=== PATIENT | male | born 1965 | race Caucasian/White ===

== ENCOUNTER 2018-07-10 16:29 | Emergency (ER) | payer MEDICARE, MEDICAID ==
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
[2018-07-10] MEDS: Iopamidol 755 Mg/ML 100 ML Bottle IV ONE (19:08)
[2018-07-10] MEDS: metroNIDAZOLE 500 MG Tab PO ONE (21:27)
== END 2018-07-10 22:01 | disposition home or self-care (01) ==
LOC: FB.ED 16:29
DX: K52.9 Noninfective gastroenteritis and colitis, unspecified (principal); K56.41 Fecal impaction; Z88.8 Allergy status to other drugs, medicaments and biological substances; Z79.899 Other long term (current) drug therapy; Z88.2 Allergy status to sulfonamides; Z91.010 Allergy to peanuts
CPT/HCPCS: 36415; 74177; 80053; 81001; 82150; 83605; 85025; 87040; 87070; 87077; 87186; 87205; 99283; A9270-GY; Q9967

== ENCOUNTER 2019-02-03 10:30 | Emergency (ER) | payer MEDICARE, MEDICAID ==
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
== END 2019-02-03 12:25 | disposition home or self-care (01) ==
LOC: FB.ED 10:30
DX: N39.0 Urinary tract infection, site not specified (principal); E87.6 Hypokalemia; Z88.5 Allergy status to narcotic agent; Z91.010 Allergy to peanuts; Z88.2 Allergy status to sulfonamides; Z79.899 Other long term (current) drug therapy; Z87.891 Personal history of nicotine dependence
CPT/HCPCS: 36415; 80048; 81001; 83605; 85025; 85610; 99283

== ENCOUNTER 2019-02-05 08:00 | Inpatient (IN) | payer MEDICARE, MEDICAID ==
[2019-02-05] MEDS ORDERED: Enoxaparin 40 MG/0.4 ML Syringe SUBCUT SCH (14:30)
[2019-02-05] MEDS: Sodium Chloride 0.9% 1,000 ML IV SCH (15:14)
[2019-02-05] MEDS: Levofloxacin/Dextrose 5%-Water 750 MG in Premix Bag 1 BAG IV SCH (15:15)
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
--- NOTE | 2019-02-05 17:16 | PCM.SN ---
- Free Text/Narrative Note: Patient uncomfortable for Lovenox since his hemoglobin is dropped. Did discuss risks of not being on Lovenox. He wants to recheck his hemoglobin the morning and then reconsider. I did do a rectal with the nurse present for occult blood. That was done and sent to lab.
[2019-02-05] MEDS: Potassium Chloride 20 MEQ Tab.ER PO SCH (18:16)
[2019-02-05] MEDS: Diazepam 5 MG Tab PO SCH ×2 (18:16→20:45)
[2019-02-05] MEDS: Albuterol/Ipratropium 3.0-0.5 MG/3 ML Neb Soln NEB PRN (18:47)
[2019-02-05] MEDS: Docusate Sodium 100 MG Cap PO SCH (20:44)
[2019-02-05] MEDS: MELATONIN 10 MG PO SCH (20:44)
[2019-02-06] MEDS: Sodium Chloride 0.9% 1,000 ML IV SCH ×3 (00:34→22:04)
[2019-02-06] MEDS: Acetaminophen 325 MG Tab PO PRN ×2 (02:21→16:54)
[2019-02-06] MEDS: Albuterol/Ipratropium 3.0-0.5 MG/3 ML Neb Soln NEB PRN (02:26)
[2019-02-06] MEDS ORDERED: Diazepam 5 MG Tab PO ONE (04:12)
--- NOTE | 2019-02-06 08:23 | PCM.PN ---
- General Info Date of Service: 02/06/19 Admission Dx/Problem (Free Text): Patient states he feels about the same. He hasn't had really any cough. Did have a fever last night. He has a little scratchy throat no nasal congestion. Breathing is about the same. He's not been up in his chair so he doesn't know how weak he is at this time - Patient Data Vitals - Most Recent: Last Vital Signs Temp 101.2 F H 02/06/19 04:00 Pulse 76 02/06/19 02:00 Resp 19 02/06/19 02:00 BP 148/87 H 02/06/19 02:00 Pulse Ox 88 L 02/06/19 02:00 Weight - Most Recent: 195 lb I&O - Last 24 Hours: Intake & Output 02/05/19 02/06/19 02/06/19 22:59 06:59 14:59 Intake Total 1458 1221 Output Total 2800 2300 Balance -1342 -1079 Lab Results Last 24 Hours: Laboratory Results - last 24 hr 02/05/19 02/06/19 02/06/19 Range/Units 14:45 06:20 06:20 WBC 6.8 (4.5-12.0) X10-3/uL RBC 3.33 L (4.30-5.75) x10(6)uL Hgb 10.6 L (13.5-17.8) g/dL Hct 31.8 (30.0-51.3) % MCV 95.7 (80-96) fL MCH 32.0 (27.7-33.6) pg MCHC 33.4 (32.2-35.4) g/dL RDW 14.8 (11.5-15.5) % Plt Count 354 (125-369) X10(3)uL MPV 7.8 (7.4-10.4) fL Neut % (Auto) 67.4 (46-82) % Lymph % (Auto) 16.3 (13-37) % [place] % (Auto) 12.2 H (4-12) % Eos % (Auto) 0 L (1.0-5.0) % Baso % (Auto) 4 H (0-2) % Neut # (Auto) 4.6 (1.6-8.3) # Lymph # (Auto) 1.1 (0.6-5.0) # [place] # (Auto) 0.8 (0.0-1.3) # Eos # (Auto) 0.0 (0.0-0.8) # Baso # (Auto) 0.3 H (0.0-0.2) # Sodium 140 (135-145) mmol/L Potassium 3.7 (3.5-5.3) mmol/L Chloride 98 L D (100-110) mmol/L Carbon Dioxide 37 H (21-32) mmol/L BUN 7 (7-18) mg/dL Creatinine 0.6 L (0.70-1.30) mg/dL Est Cr Clr Drug Dosing 167.44 mL/min Estimated GFR (MDRD) > 60 (>60) BUN/Creatinine Ratio 11.7 (9-20) Glucose 109 (80-116) mg/dL Calcium 7.9 L (8.6-10.2) mg/dL Total Bilirubin 0.7 (0.1-1.3) mg/dL AST 21 D (5-25) IU/L ALT 32 D (12-36) U/L Alkaline Phosphatase 96 (56-112) IU/L Troponin I < 0.017 L (<0.017-0.056) ng/mL Total Protein 6.7 (6.0-8.0) g/dL Albumin 2.1 L (3.5-5.2) g/dL Globulin 4.6 g/dL Albumin/Globulin Ratio 0.5 [place] Results Last 24 Hours: Microbiology 02/05/19 17:15 Stool Occult Blood (FELIPE) - Final Stool / Feces NEGATIVE OCCULT BLOOD Med Orders - Current: Current Medications Acetaminophen (Tylenol) 650 mg PO Q4H PRN PRN Reason: Fever Last Admin: 02/06/19 02:21 Dose: 650 mg Albuterol/Ipratropium (Duoneb 3.0-0.5 Mg/3 Ml) 3 ml NEB Q4H PRN PRN Reason: Dyspnea Last Admin: 02/06/19 02:26 Dose: 3 ml Ascorbic Acid (Vitamin C) 500 mg PO DAILY EDEN Bisacodyl (Dulcolax) 10 mg PO Q48H [place] Cetirizine HCl (Zyrtec) 10 mg PO DAILY PRN PRN Reason: Allergies Cranberry (Cranberry) 500 mg PO DAILY [facility] Diazepam (Valium.) 5 mg PO QID [facility] Last Admin: 02/05/19 20:45 Dose: 5 mg Docusate Sodium (Colace) 100 mg PO BID [facility] Last Admin: 02/05/19 20:44 Dose: 100 mg Levofloxacin/Dextrose 750 mg/ (Premix) 150 mls @ 100 mls/hr IV Q24H [facility] Last Admin: 02/05/19 15:15 Dose: 100 mls/hr Sodium Chloride (Normal Saline) 1,000 mls @ 125 mls/hr IV ASDIRECTED [facility] Last Admin: 02/06/19 00:34 Dose: 125 mls/hr (Azelastine/Fluticasone [Dymista Nasal [place]] 1 [place]) *Ptom 1 spray NASBOTH BID PRN PRN Reason: Allergies Cholecalciferol ( Vitamin D3) [Vitamin D3] 2,000 Unit * Ptom 0 unit PO DAILY [facility] Melatonin [Melatonin (] 10 Mg *Ptom) 0 mg PO BEDTIME [facility] Last Admin: 02/05/19 20:44 Dose: 10 mg Polysaccharide Iron Complex (Ferrex 150) 150 mg PO BID [facility] Potassium Chloride (Klor-Con M20) 20 meq PO DAILY [facility] Sodium Chloride (Saline Flush) 10 ml FLUSH ASDIRECTED PRN PRN Reason: Keep Vein Open Tolterodine Tartrate (Detrol La 24 Hr) 4 mg PO DAILY [facility] Discontinued Medications Diazepam (Valium.) 5 mg PO ONETIME ONE Stop: 02/06/19 04:13 Last Admin: 02/06/19 04:27 Dose: 5 mg Enoxaparin Sodium (Lovenox) 40 mg SUBCUT Q24H [facility] Last Admin: 02/05/19 14:40 Dose: Not Given Potassium Chloride (Klor-Con M20) 20 meq PO BIDMEALS [facility] Last Admin: 02/05/19 18:16 Dose: 20 meq - Exam Quality Assessment: Supplemental Oxygen General: Alert, Oriented, Cooperative Neck: Supple Lungs: Clear to Auscultation, Normal Respiratory Effort. No: Crackles, Rhonchi Cardiovascular: Regular Rate, Regular Rhythm, Murmurs Extremities: No Pedal Edema Skin: Warm, Dry, Intact Psy/Mental Status: Alert, Normal Affect, Normal Mood - Problem List & Annotations (1) Pneumonia SNOMED Code(s): 255524189 Code(s): J18.9 - PNEUMONIA, UNSPECIFIED ORGANISM Status: Acute Current Visit: Yes (2) Dehydration SNOMED Code(s): 76810021 Code(s): E86.0 - DEHYDRATION Status: Acute Current Visit: Yes (3) Hypokalemia SNOMED Code(s): 60781857 Code(s): E87.6 - HYPOKALEMIA Status: Acute Current Visit: Yes (4) Hyponatremia SNOMED Code(s): 98780137 Code(s): E87.1 - HYPO-OSMOLALITY AND HYPONATREMIA Status: Acute Current Visit: Yes (5) Palliative care status SNOMED Code(s): 217993195 Code(s): Z51.5 - ENCOUNTER FOR PALLIATIVE CARE Status: Acute Current Visit: Yes (6) Quadriplegic spinal paralysis SNOMED Code(s): 078482199 Code(s): G82.50 - QUADRIPLEGIA, UNSPECIFIED Status: Acute Current Visit: Yes (7) Anemia SNOMED Code(s): 022937193 Code(s): D64.9 - ANEMIA, UNSPECIFIED Status: Acute Current Visit: Yes (8) Hypoxia SNOMED Code(s): 809118320 Code(s): R09.02 - HYPOXEMIA Status: Acute Current Visit: Yes - Problem List Review Problem List Initiated/Reviewed/Updated: Yes - My Orders Last 24 Hours: My Active Orders 02/05/19 14:25 Patient Status [ADT] Routine Oxygen Therapy [RC] PRN Up to Chair [RC] ASDIRECTED Vital Signs [RC] Q4H Sodium Chloride 0.9% [Saline Flush] 10 ml FLUSH ASDIRECTED PRN Blood Culture x2 Reflex Set [OM.PC] Urgent Peripheral IV Insertion Adult [OM.PC] Routine Resuscitation Status Routine 02/05/19 14:26 Intake and Output [RC] 06,14,22 Sequential Compression Device [OM.PC] Per Unit Routine 02/05/19 14:28 CULTURE SPUTUM + SMEAR [RM] Routine 02/05/19 14:30 Levofloxacin/Dextrose 5%-Water [Levaquin in D5W 750 MG/150 ML] 750 mg Premix Bag 1 bag IV Q24H Sodium Chloride 0.9% [Normal Saline] 1,000 ml IV ASDIRECTED 02/05/19 14:45 CULTURE BLOOD [BC] Urgent 02/05/19 14:50 CULTURE BLOOD [BC] Urgent 02/05/19 16:16 Acetaminophen [Tylenol] 650 mg PO Q4H PRN 02/05/19 16:18 RT Aerosol Therapy [RC] ASDIRECTED Albuterol/Ipratropium [DuoNeb 3.0-0.5 MG/3 ML] 3 ml NEB Q4H PRN Azelastine/Fluticasone [Dymista Nasal [place]] 1 spray NASBOTH BID PRN Cetirizine [ZyrTEC] 10 mg PO DAILY PRN 02/05/19 17:00 diazePAM [Valium] 5 mg PO QID 02/05/19 20:06 Incentive Spirometry [RT Incentive Spirometry] [RC] Q1HWA 02/05/19 21:00 Docusate Sodium [Colace] 100 mg PO BID Melatonin [Melatonin] 0 mg PO BEDTIME 02/05/19 Dinner Regular Diet [DIET] 02/06/19 08:30 Enoxaparin [Lovenox] 40 mg SUBCUT Q24H 02/06/19 09:00 Ascorbic Acid [Vitamin C] 500 mg PO DAILY Bisacodyl [Dulcolax] 10 mg PO Q48H Cholecalciferol (Vitamin D3) [Vitamin D3] 0 unit PO DAILY Cranberry 500 mg PO DAILY Iron Polysaccharides Complex [Ferrex 150] 150 mg PO BID Potassium Chloride [Klor-Con M20] 20 meq PO DAILY Tolterodine [Detrol LA 24 Hr] 4 mg PO DAILY 02/07/19 05:11 CBC WITH AUTO DIFF [HEME] AM - Plan Plan:: 1. Continue current antibiotics. 2. Keep O2 greater than 90% 3. Will get him up in his chair today 4. Start iron 150 mg twice a day. 5. His sodium and potassium are corrected today. Decrease his potassium dose of 20 milk was to once a day. 6. Continue IV fluids as previously stated 1 25 mL an hour 7. His guaiac was negative and hemoglobin is about the same so he is agreeable to start Lovenox for VTE prophylaxis. So I reordered the Lovenox 40 mg subcutaneous once a day. 8. Reviewed his urine that he had on 02/01 which showed mixed nima. That was done clinic. 9. Had a PET scan recently that showed no cancer possible pneumonia 10. He has seen the guest services assistant who has reviewed his CT scan of his chest and PET scan and swallowing study. She recommends repeat CT in 3 months.
[2019-02-06] MEDS: Docusate Sodium 100 MG Cap PO SCH ×3 (09:01→20:19)
[2019-02-06] MEDS: Tolterodine 4 MG Cap.ER *PTOM PO SCH (09:01)
[2019-02-06] MEDS: BISACODYL 5 MG PO SCH ×2 (09:02→09:51)
[2019-02-06] MEDS: Potassium Chloride 20 MEQ Tab.ER PO SCH ×3 (09:03→18:38)
[2019-02-06] MEDS: Ascorbic Acid 500 MG Tab PO SCH (09:03)
[2019-02-06] MEDS: Diazepam 5 MG Tab PO SCH ×4 (09:14→20:20)
[2019-02-06] MEDS: Iron Polysaccharides Complex 150 MG Cap PO SCH ×2 (09:14→20:20)
[2019-02-06] MEDS: Enoxaparin 40 MG/0.4 ML Syringe SUBCUT SCH (09:18)
[2019-02-06] MEDS: Cranberry 500 MG Cap PO SCH (09:37)
[2019-02-06] MEDS: CHOLECALCIFEROL 2000 UNIT PO SCH (09:45)
[2019-02-06] MEDS: Sodium Chloride 0.9% 10 ML Syringe FLUSH PRN (12:23)
[2019-02-06] MEDS: AZELASTINE NASBOTH PRN (13:17)
[2019-02-06] MEDS: FLUTICASONE NASBOTH PRN (13:17)
[2019-02-06] MEDS: Levofloxacin/Dextrose 5%-Water 750 MG in Premix Bag 1 BAG IV SCH (15:15)
[2019-02-06] MEDS: MELATONIN 10 MG PO SCH (20:20)
[2019-02-07] MEDS: Acetaminophen 325 MG Tab PO PRN ×2 (01:12→19:11)
[2019-02-07] MEDS: Albuterol/Ipratropium 3.0-0.5 MG/3 ML Neb Soln NEB PRN (01:15)
[2019-02-07] MEDS: Sodium Chloride 0.9% 1,000 ML IV SCH (06:03)
[2019-02-07] MEDS ORDERED: Sodium Chloride 0.9% 10 ML Syringe FLUSH PRN (07:57)
[2019-02-07] MEDS ORDERED: Bisacodyl 10 MG Supp RECTAL PRN ×2 (07:59→09:38)
--- NOTE | 2019-02-07 08:05 | PCM.PN ---
- General Info Date of Service: 02/07/19 Admission Dx/Problem (Free Text): Patient states he has a dry nonproductive cough. He denies fevers, chills, shortness of breath. He is always constipated and is concerned about the iron and the potassium and like them stopped. He says iron causes constipation worsening or he has. Nurses report that he needed 2 L through the night with the CPAP keep his sats greater than 90%. Patient still feels weak. He also says his achiness is worse because is lying in bed. He counters this by sitting up in his chair is most the day. He uses some Tylenol that's helping - Patient Data Vitals - Most Recent: Last Vital Signs Temp 98.0 F 02/07/19 04:00 Pulse 79 02/07/19 04:00 Resp 18 02/07/19 04:00 BP 145/79 H 02/07/19 04:00 Pulse Ox 90 L 02/07/19 06:35 Weight - Most Recent: 195 lb I&O - Last 24 Hours: Intake & Output 02/06/19 02/07/19 02/07/19 22:59 06:59 14:59 Intake Total 1471 1371 Output Total 1300 2400 Balance 171 -1029 Lab Results Last 24 Hours: Laboratory Results - last 24 hr 02/07/19 02/07/19 Range/Units 06:15 06:15 WBC 6.6 (4.5-12.0) X10-3/uL RBC 3.22 L (4.30-5.75) x10(6)uL Hgb 10.3 L (13.5-17.8) g/dL Hct 31.1 (30.0-51.3) % MCV 96.6 H (80-96) fL MCH 31.9 (27.7-33.6) pg MCHC 33.0 (32.2-35.4) g/dL RDW 15.5 (11.5-15.5) % Plt Count 377 H (125-369) X10(3)uL MPV 7.7 (7.4-10.4) fL Neut % (Auto) 71.0 (46-82) % Lymph % (Auto) 17.5 (13-37) % [place] % (Auto) 9.8 (4-12) % Eos % (Auto) 1 (1.0-5.0) % Baso % (Auto) 1 (0-2) % Neut # (Auto) 4.7 (1.6-8.3) # Lymph # (Auto) 1.2 (0.6-5.0) # [place] # (Auto) 0.6 (0.0-1.3) # Eos # (Auto) 0.0 (0.0-0.8) # Baso # (Auto) 0.1 (0.0-0.2) # Sodium 142 (135-145) mmol/L Potassium 3.9 (3.5-5.3) mmol/L Chloride 101 (100-110) mmol/L Carbon Dioxide 39 H (21-32) mmol/L BUN 6 L (7-18) mg/dL Creatinine 0.5 L (0.70-1.30) mg/dL Est Cr Clr Drug Dosing 200.93 mL/min Estimated GFR (MDRD) > 60 (>60) BUN/Creatinine Ratio 12.0 (9-20) Glucose 110 (80-116) mg/dL Calcium 8.0 L (8.6-10.2) mg/dL Felipe Results Last 24 Hours: Microbiology 02/05/19 14:50 Aerobic Blood Culture - Preliminary Blood - Venous - Lab Draw NO GROWTH AFTER 1 DAY Anaerobic Blood Culture - Preliminary NO GROWTH AFTER 1 DAY 02/05/19 14:45 Aerobic Blood Culture - Preliminary Blood - Venous NO GROWTH AFTER 1 DAY Anaerobic Blood Culture - Preliminary NO GROWTH AFTER 1 DAY Med Orders - Current: Current Medications Acetaminophen (Tylenol) 650 mg PO Q4H PRN PRN Reason: Fever Last Admin: 02/07/19 01:12 Dose: 650 mg Albuterol/Ipratropium (Duoneb 3.0-0.5 Mg/3 Ml) 3 ml NEB Q4H PRN PRN Reason: Dyspnea Last Admin: 02/07/19 01:15 Dose: 3 ml Ascorbic Acid (Vitamin C) 500 mg PO DAILY [facility] Last Admin: 02/06/19 09:03 Dose: 500 mg Bisacodyl (Dulcolax) 10 mg PO Q48H [facility] Last Admin: 02/06/19 09:51 Dose: Not Given Bisacodyl (Dulcolax) 10 mg RECTAL DAILY PRN PRN Reason: Constipation Cetirizine HCl (Zyrtec) 10 mg PO DAILY PRN PRN Reason: Allergies Cranberry (Cranberry) 500 mg PO DAILY [facility] Last Admin: 02/06/19 09:37 Dose: Not Given Diazepam (Valium.) 5 mg PO QID [facility] Last Admin: 02/06/19 20:20 Dose: 5 mg Docusate Sodium (Colace) 100 mg PO BID [facility] Last Admin: 02/06/19 20:19 Dose: 100 mg Enoxaparin Sodium (Lovenox) 40 mg SUBCUT Q24H [facility] Last Admin: 02/06/19 09:18 Dose: 40 mg Fluticasone Propionate (Flonase) 1 gm NASBOTH BID [facility] Levofloxacin/Dextrose 750 mg/ (Premix) 150 mls @ 100 mls/hr IV Q24H [facility] Last Admin: 02/06/19 15:15 Dose: 100 mls/hr (Azelastine/Fluticasone [Dymista Nasal [place]] 1 [place]) *Ptom 1 spray NASBOTH BID PRN PRN Reason: Allergies Last Admin: 02/06/19 13:17 Dose: 1 spray Cholecalciferol ( Vitamin D3) [Vitamin D3] 2,000 Unit * Ptom 0 unit PO DAILY [facility] Last Admin: 02/06/19 09:45 Dose: 2,000 unit Melatonin [Melatonin (] 10 Mg *Ptom) 0 mg PO BEDTIME [facility] Last Admin: 02/06/19 20:20 Dose: 10 mg Sodium Chloride (Saline Flush) 10 ml FLUSH ASDIRECTED PRN PRN Reason: Keep Vein Open Last Admin: 02/06/19 12:23 Dose: 10 ml Sodium Chloride (Saline Flush) 10 ml FLUSH ASDIRECTED PRN PRN Reason: Keep Vein Open Tolterodine Tartrate (Detrol La 24 Hr) 4 mg PO DAILY [facility] Last Admin: 02/06/19 09:01 Dose: 4 mg Discontinued Medications Diazepam (Valium.) 5 mg PO ONETIME ONE Stop: 02/06/19 04:13 Last Admin: 02/06/19 04:27 Dose: 5 mg Enoxaparin Sodium (Lovenox) 40 mg SUBCUT Q24H [facility] Last Admin: 02/05/19 14:40 Dose: Not Given Sodium Chloride (Normal Saline) 1,000 mls @ 125 mls/hr IV ASDIRECTED [facility] Last Admin: 02/07/19 06:03 Dose: 125 mls/hr Polysaccharide Iron Complex (Ferrex 150) 150 mg PO BID [facility] Last Admin: 02/06/19 20:20 Dose: 150 mg Potassium Chloride (Klor-Con M20) 20 meq PO BIDMEALS [facility] Last Admin: 02/06/19 18:38 Dose: Not Given Potassium Chloride (Klor-Con M20) 20 meq PO DAILY [facility] Last Admin: 02/06/19 10:14 Dose: 20 meq - Exam General: Alert, Oriented Lungs: Clear to Auscultation, Normal Respiratory Effort. No: Crackles, Rales, Rhonchi, Rub Cardiovascular: Regular Rate, Regular Rhythm, No Murmurs GI/Abdominal Exam: Normal Bowel Sounds, Soft, Non-Tender, No Organomegaly - Problem List & Annotations (1) Pneumonia SNOMED Code(s): 190668212 Code(s): J18.9 - PNEUMONIA, UNSPECIFIED ORGANISM Status: Acute Current Visit: Yes (2) Dehydration SNOMED Code(s): 02747149 Code(s): E86.0 - DEHYDRATION Status: Acute Current Visit: Yes (3) Hypokalemia SNOMED Code(s): 49353803 Code(s): E87.6 - HYPOKALEMIA Status: Acute Current Visit: Yes (4) Hyponatremia SNOMED Code(s): 34906721 Code(s): E87.1 - HYPO-OSMOLALITY AND HYPONATREMIA Status: Acute Current Visit: Yes (5) Palliative care status SNOMED Code(s): 896710248 Code(s): Z51.5 - ENCOUNTER FOR PALLIATIVE CARE Status: Acute Current Visit: Yes (6) Quadriplegic spinal paralysis SNOMED Code(s): 993170812 Code(s): G82.50 - QUADRIPLEGIA, UNSPECIFIED Status: Acute Current Visit: Yes (7) Anemia SNOMED Code(s): 316012095 Code(s): D64.9 - ANEMIA, UNSPECIFIED Status: Acute Current Visit: Yes (8) Hypoxia SNOMED Code(s): 025977514 Code(s): R09.02 - HYPOXEMIA Status: Acute Current Visit: Yes - Problem List Review Problem List Initiated/Reviewed/Updated: Yes - My Orders Last 24 Hours: My Active Orders 02/06/19 08:30 Enoxaparin [Lovenox] 40 mg SUBCUT Q24H 02/06/19 09:00 Ascorbic Acid [Vitamin C] 500 mg PO DAILY Bisacodyl [Dulcolax] 10 mg PO Q48H Cholecalciferol (Vitamin D3) [Vitamin D3] 0 unit PO DAILY Cranberry 500 mg PO DAILY Tolterodine [Detrol LA 24 Hr] 4 mg PO DAILY 02/07/19 07:57 Sodium Chloride 0.9% [Saline Flush] 10 ml FLUSH ASDIRECTED PRN Saline Lock Insert [OM.PC] Routine 02/07/19 07:59 Bisacodyl [Dulcolax] 10 mg RECTAL DAILY PRN 02/07/19 08:00 Admission Status [Patient Status] [ADT] Routine 02/07/19 08:01 Consult to Occupational Therapy [OT Evaluation and Treatment] [CONS] Routine Consult to Physical Therapy [PT Evaluation and Treatment] [CONS] Routine 02/07/19 09:00 Fluticasone Propionate [Flonase] 1 gm NASBOTH BID - Plan Plan:: 1. DC IV fluids and saline lock IV. 2. DC iron and potassium per patient request. 3. Patient's requesting suppositories. He takes 2 Dulcolax suppositories daily when necessary when he needs to move his bowels. He also needs to be digitally submitted. He has a process that he knows how it works for him and his caregivers. 4. PT/OT evaluation 5. Up in chair most of the day because it helps him with his achiness and pain. 6. Flonase 2 sprays each nostril once a day. 7. Continue IV antibiotics
[2019-02-07] MEDS: CHOLECALCIFEROL 2000 UNIT PO SCH (09:07)
[2019-02-07] MEDS: Cranberry 500 MG Cap PO SCH (09:08)
[2019-02-07] MEDS: Docusate Sodium 100 MG Cap PO SCH ×2 (09:08→20:40)
[2019-02-07] MEDS: Tolterodine 4 MG Cap.ER *PTOM PO SCH (09:09)
[2019-02-07] MEDS: FLUTICASONE NASBOTH PRN (09:09)
[2019-02-07] MEDS: AZELASTINE NASBOTH PRN (09:09)
[2019-02-07] MEDS: Ascorbic Acid 500 MG Tab PO SCH (09:10)
[2019-02-07] MEDS: Diazepam 5 MG Tab PO SCH ×4 (09:17→22:56)
[2019-02-07] MEDS: Enoxaparin 40 MG/0.4 ML Syringe SUBCUT SCH ×2 (09:52→13:08)
[2019-02-07] MEDS ORDERED: BISACODYL 5 MG PO SCH (10:00)
[2019-02-07] MEDS: Fluticasone Propionate Nasal Spray 16 GM Bottle NASBOTH SCH ×2 (12:19→20:42)
[2019-02-07] MEDS: Levofloxacin/Dextrose 5%-Water 750 MG in Premix Bag 1 BAG IV SCH (14:48)
[2019-02-07] MEDS: Cetirizine 10 MG Tab PO PRN (19:16)
[2019-02-07] MEDS: MELATONIN 10 MG PO SCH (20:41)
[2019-02-08] MEDS: Acetaminophen 325 MG Tab PO PRN ×2 (05:55→21:57)
[2019-02-08] MEDS: Albuterol/Ipratropium 3.0-0.5 MG/3 ML Neb Soln NEB PRN (07:00)
--- NOTE | 2019-02-08 08:00 | PCM.PN ---
- General Info Date of Service: 02/08/19 Admission Dx/Problem (Free Text): Patient was doing well but then this morning ran a temperature over 101 and his oxygen dropped into the 90s. His oxygen had increased to 6 L to keep him above 90%. He says a little diaphoretic any feels feverish. Denies chills. He feels little more short of breath. He has some chest discomfort with coughing. - Patient Data Vitals - Most Recent: Last Vital Signs Temp 101.3 F H 02/08/19 05:40 Pulse 101 H 02/08/19 05:40 Resp 20 02/08/19 05:40 BP 132/77 02/08/19 05:40 Pulse Ox 87 L 02/08/19 07:30 Weight - Most Recent: 195 lb I&O - Last 24 Hours: Intake & Output 02/07/19 02/08/19 02/08/19 22:59 06:59 14:59 Intake Total 2700 Output Total 3500 Balance -800 Felipe Results Last 24 Hours: Microbiology 02/05/19 14:45 Aerobic Blood Culture - Preliminary Blood - Venous NO GROWTH AFTER 2 DAYS Anaerobic Blood Culture - Preliminary NO GROWTH AFTER 2 DAYS 02/05/19 14:50 Aerobic Blood Culture - Preliminary Blood - Venous - Lab Draw NO GROWTH AFTER 2 DAYS Anaerobic Blood Culture - Preliminary NO GROWTH AFTER 2 DAYS Med Orders - Current: Current Medications Acetaminophen (Tylenol) 650 mg PO Q4H PRN PRN Reason: Fever Last Admin: 02/08/19 05:55 Dose: 650 mg Albuterol/Ipratropium (Duoneb 3.0-0.5 Mg/3 Ml) 3 ml NEB Q4H PRN PRN Reason: Dyspnea Last Admin: 02/08/19 07:00 Dose: 3 ml Ascorbic Acid (Vitamin C) 500 mg PO DAILY [facility] Last Admin: 02/07/19 09:10 Dose: 500 mg Bisacodyl (Dulcolax) 10 - 20 mg RECTAL DAILY PRN PRN Reason: Constipation Bisacodyl (Dulcolax) 10 mg PO Q48H [facility] Cetirizine HCl (Zyrtec) 10 mg PO DAILY PRN PRN Reason: Allergies Last Admin: 02/07/19 19:16 Dose: 10 mg Cholecalciferol (Vitamin D3) 2,000 units PO DAILY [facility] Cranberry (Cranberry) 500 mg PO DAILY [facility] Last Admin: 02/07/19 09:08 Dose: Not Given Diazepam (Valium.) 5 mg PO QID [facility] Last Admin: 02/07/19 22:56 Dose: 5 mg Docusate Sodium (Colace) 100 mg PO BID [facility] Last Admin: 02/07/19 20:40 Dose: 100 mg Enoxaparin Sodium (Lovenox) 40 mg SUBCUT Q24H [facility] Last Admin: 02/07/19 13:08 Dose: 40 mg Levofloxacin/Dextrose 750 mg/ (Premix) 150 mls @ 100 mls/hr IV Q24H [facility] Last Admin: 02/07/19 14:48 Dose: 100 mls/hr Melatonin (Melatonin) 10 mg PO BEDTIME [facility] (Azelastine/Fluticasone [Dymista Nasal [place]] 1 [place]) *Ptom 1 spray NASBOTH BID PRN PRN Reason: Allergies Last Admin: 02/07/19 09:09 Dose: 1 spray Sodium Chloride (Saline Flush) 10 ml FLUSH ASDIRECTED PRN PRN Reason: Keep Vein Open Last Admin: 02/06/19 12:23 Dose: 10 ml Sodium Chloride (Saline Flush) 10 ml FLUSH ASDIRECTED PRN PRN Reason: Keep Vein Open Tolterodine Tartrate (Detrol La 24 Hr) 4 mg PO DAILY [facility] Discontinued Medications Bisacodyl (Dulcolax) 10 mg PO Q48H [facility] Last Admin: 02/06/19 09:51 Dose: Not Given Bisacodyl (Dulcolax) 20 mg RECTAL DAILY PRN PRN Reason: Constipation Bisacodyl (Dulcolax) 10 mg PO Q48H [facility] Last Admin: 02/07/19 09:54 Dose: 10 mg Diazepam (Valium.) 5 mg PO ONETIME ONE Stop: 02/06/19 04:13 Last Admin: 02/06/19 04:27 Dose: 5 mg Enoxaparin Sodium (Lovenox) 40 mg SUBCUT Q24H [facility] Last Admin: 02/05/19 14:40 Dose: Not Given Fluticasone Propionate (Flonase) 0 gm NASBOTH BID [facility] Last Admin: 02/07/19 20:42 Dose: Not Given Sodium Chloride (Normal Saline) 1,000 mls @ 125 mls/hr IV ASDIRECTED [facility] Last Admin: 02/07/19 06:03 Dose: 125 mls/hr Cholecalciferol ( Vitamin D3) [Vitamin D3] 2,000 Unit * Ptom 0 unit PO DAILY [facility] Last Admin: 02/07/19 09:07 Dose: 2,000 unit Melatonin [Melatonin (] 10 Mg *Ptom) 0 mg PO BEDTIME [facility] Last Admin: 02/07/19 20:41 Dose: 10 mg Polysaccharide Iron Complex (Ferrex 150) 150 mg PO BID [facility] Last Admin: 02/06/19 20:20 Dose: 150 mg Potassium Chloride (Klor-Con M20) 20 meq PO BIDMEALS [facility] Last Admin: 02/06/19 18:38 Dose: Not Given Potassium Chloride (Klor-Con M20) 20 meq PO DAILY [facility] Last Admin: 02/06/19 10:14 Dose: 20 meq Tolterodine Tartrate (Detrol La 24 Hr) 4 mg PO DAILY [facility] Last Admin: 02/07/19 09:09 Dose: 4 mg - Exam Quality Assessment: Supplemental Oxygen General: Alert, Oriented, Cooperative Neck: Supple Lungs: Clear to Auscultation, Normal Respiratory Effort, Decreased Breath Sounds Cardiovascular: Regular Rate, Regular Rhythm, Murmurs GI/Abdominal Exam: Normal Bowel Sounds, Soft, Non-Tender Extremities: No Pedal Edema - Problem List & Annotations (1) Pneumonia SNOMED Code(s): 080611073 Code(s): J18.9 - PNEUMONIA, UNSPECIFIED ORGANISM Status: Acute Current Visit: Yes (2) Dehydration SNOMED Code(s): 71752382 Code(s): E86.0 - DEHYDRATION Status: Acute Current Visit: Yes (3) Hypokalemia SNOMED Code(s): 88410295 Code(s): E87.6 - HYPOKALEMIA Status: Acute Current Visit: Yes (4) Hyponatremia SNOMED Code(s): 68636083 Code(s): E87.1 - HYPO-OSMOLALITY AND HYPONATREMIA Status: Acute Current Visit: Yes (5) Palliative care status SNOMED Code(s): 684234641 Code(s): Z51.5 - ENCOUNTER FOR PALLIATIVE CARE Status: Acute Current Visit: Yes (6) Quadriplegic spinal paralysis SNOMED Code(s): 527422768 Code(s): G82.50 - QUADRIPLEGIA, UNSPECIFIED Status: Acute Current Visit: Yes (7) Anemia SNOMED Code(s): 370436748 Code(s): D64.9 - ANEMIA, UNSPECIFIED Status: Acute Current Visit: Yes (8) Hypoxia SNOMED Code(s): 698298854 Code(s): R09.02 - HYPOXEMIA Status: Acute Current Visit: Yes - Problem List Review Problem List Initiated/Reviewed/Updated: Yes - My Orders Last 24 Hours: My Active Orders 02/07/19 07:57 Sodium Chloride 0.9% [Saline Flush] 10 ml FLUSH ASDIRECTED PRN Saline Lock Insert [OM.PC] Routine 02/07/19 08:00 Admission Status [Patient Status] [ADT] Routine 02/07/19 08:01 Consult to Occupational Therapy [OT Evaluation and Treatment] [CONS] Routine Consult to Physical Therapy [PT Evaluation and Treatment] [CONS] Routine 02/07/19 09:38 Bisacodyl [Dulcolax] 10 - 20 mg RECTAL DAILY PRN 02/08/19 07:53 ABG [BLOOD GAS ARTERIAL] [BG] Routine CBC WITH AUTO DIFF [HEME] Routine 02/08/19 07:54 CXR [Chest 1V Frontal] [CR] Routine 02/08/19 09:00 Cholecalciferol (Vitamin D3) [Vitamin D3] 2,000 units PO DAILY Tolterodine [Detrol LA 24 Hr] 4 mg PO DAILY 02/08/19 21:00 Melatonin 10 mg PO BEDTIME 02/09/19 10:00 Bisacodyl [Dulcolax] 10 mg PO Q48H - Plan Plan:: 1. Chest x-ray, ABGs and CBC. 2. See if we can get any of the nurses back blows to loosen up mucous plugs and coughing. We don't have respiratory therapy anymore. 3. Reevaluate him after I get my chest x-ray and labs.
[2019-02-08] MEDS ORDERED: Bisacodyl 10 MG Supp RECTAL PRN (10:03)
[2019-02-08] MEDS: Enoxaparin 40 MG/0.4 ML Syringe SUBCUT SCH (10:25)
[2019-02-08] MEDS: Piperacillin/Tazobactam 3.375 GM in Sodium Chloride 0.9% 50 ML IV SCH ×3 (10:26→21:30)
[2019-02-08] MEDS: Tolterodine 4 MG Cap.ER PO SCH (10:32)
[2019-02-08] MEDS: Docusate Sodium 100 MG Cap PO SCH ×2 (10:32→21:28)
[2019-02-08] MEDS: Cholecalciferol (Vitamin D3) 1,000 Unit Tab PO SCH (10:32)
[2019-02-08] MEDS: Ascorbic Acid 500 MG Tab PO SCH (10:32)
[2019-02-08] MEDS: Cranberry 500 MG Cap PO SCH (10:32)
[2019-02-08] MEDS: Diazepam 5 MG Tab PO SCH ×4 (10:40→21:28)
--- NOTE | 2019-02-08 10:47 | CR ---
INDICATION: Short of breath, pneumonia. CHEST: A portable AP upright view of the chest was obtained 02/08/19 and compared with 02/05/19 and revealed what appears to be a loculated pleural effusion on the right. There also appears to be infiltrate in the mid to lower lung field on the right. The heart is enlarged. Pulmonary vasculature is prominent in the upper lung flores, suggesting CHF. No definite interstitial lung edema is identified. No left-sided pleural effusion was seen. Dextroconvex scoliosis of the upper middle thoracic spine of moderate degree is noted. IMPRESSION: 1. Possible pneumonia and pleuritis on the right with loculated pleural effusion suggested. 2. CHF without definite lung edema at this time. Report was called to Dr. Adilson Villeda at 1005 hours on 02/08/19. [facility]
[2019-02-08] MEDS: Sodium Chloride 0.9% 10 ML Syringe FLUSH PRN ×5 (10:58→17:22)
[2019-02-08] MEDS: Vancomycin 750 MG, Vancomycin 500 MG in Sodium Chloride 0.9% 250 ML IV SCH ×2 (11:17→22:25)
[2019-02-08] MEDS ORDERED: Furosemide 40 MG/4 ML VIAL IVPUSH ONE (11:42)
[2019-02-08] MEDS: Cetirizine 10 MG Tab PO PRN (16:29)
[2019-02-09] MEDS: Sodium Chloride 0.9% 10 ML Syringe FLUSH PRN ×3 (00:14→09:35)
[2019-02-09] MEDS ORDERED: Sodium Chloride 0.9% 250 ML IV SCH (00:30)
[2019-02-09] MEDS: Piperacillin/Tazobactam 3.375 GM in Sodium Chloride 0.9% 50 ML IV SCH ×2 (03:49→09:36)
--- NOTE | 2019-02-09 08:07 | PCM.PN ---
<Ty Israel - Last Filed: 02/09/19 08:02> - General Info Date of Service: 02/09/19 Admission Dx/Problem (Free Text): Patient reports he is doing ok. still has SOB, and chest pain when he coughs. No BM yet. he is tolerating diet well. - Review of Systems General: Reports: Fever HEENT: Reports: No Symptoms Pulmonary: Reports: Shortness of Breath, Pleuritic Chest Pain, Cough Cardiovascular: Reports: Chest Pain, Edema Gastrointestinal: Reports: Abdominal Pain, Constipation Musculoskeletal: Reports: Other (paraplegia) Skin: Reports: No Symptoms Neurological: Reports: No Symptoms Psychiatric: Reports: No Symptoms - Patient Data Vitals - Most Recent: Last Vital Signs Temp 37.3 C 02/09/19 06:10 Pulse 92 02/09/19 06:10 Resp 16 02/09/19 06:10 BP 121/72 02/09/19 06:10 Pulse Ox 92 L 02/09/19 06:10 Weight - Most Recent: 195 lb I&O - Last 24 Hours: Intake & Output 02/08/19 02/09/19 02/09/19 22:59 06:59 14:59 Intake Total 2600 590 Output Total 2750 1925 Balance -150 -1335 Lab Results Last 24 Hours: Laboratory Results - last 24 hr 02/08/19 02/08/19 02/09/19 Range/Units 08:25 11:00 06:05 WBC 8.0 (4.5-12.0) X10-3/uL RBC 3.23 L (4.30-5.75) x10(6)uL Hgb 10.6 L (13.5-17.8) g/dL Hct 31.1 (30.0-51.3) % MCV 96.3 H (80-96) fL MCH 32.7 (27.7-33.6) pg MCHC 34.0 (32.2-35.4) g/dL RDW 15.2 (11.5-15.5) % Plt Count 398 H (125-369) X10(3)uL MPV 7.2 L (7.4-10.4) fL Neut % (Auto) 74.4 (46-82) % Lymph % (Auto) 15.3 (13-37) % [place] % (Auto) 8.4 (4-12) % Eos % (Auto) 0 L (1.0-5.0) % Baso % (Auto) 2 (0-2) % Neut # (Auto) 5.9 (1.6-8.3) # Lymph # (Auto) 1.2 (0.6-5.0) # [place] # (Auto) 0.7 (0.0-1.3) # Eos # (Auto) 0.0 (0.0-0.8) # Baso # (Auto) 0.1 (0.0-0.2) # Sodium 139 (135-145) mmol/L Potassium 4.0 (3.5-5.3) mmol/L Chloride 97 L (100-110) mmol/L Carbon Dioxide 47 H* (21-32) mmol/L BUN 5 L (7-18) mg/dL Creatinine 0.6 L (0.70-1.30) mg/dL Est Cr Clr Drug Dosing 167.44 mL/min Estimated GFR (MDRD) > 60 (>60) BUN/Creatinine Ratio 8.3 L (9-20) Glucose 103 (80-116) mg/dL Calcium 8.0 L (8.6-10.2) mg/dL Total Bilirubin 0.6 (0.1-1.3) mg/dL AST 36 H D (5-25) IU/L ALT 40 H D (12-36) U/L Alkaline Phosphatase 93 (56-112) IU/L NT-Pro-B Natriuret Pep 1024 H* (<=125) pg/mL Total Protein 6.8 (6.0-8.0) g/dL Albumin 1.9 L (3.5-5.2) g/dL Globulin 4.9 g/dL Albumin/Globulin Ratio 0.4 Felipe Results Last 24 Hours: Microbiology 02/05/19 14:50 Aerobic Blood Culture - Preliminary Blood - Venous - Lab Draw NO GROWTH AFTER 3 DAYS Anaerobic Blood Culture - Preliminary NO GROWTH AFTER 3 DAYS 02/05/19 14:45 Aerobic Blood Culture - Preliminary Blood - Venous NO GROWTH AFTER 3 DAYS Anaerobic Blood Culture - Preliminary NO GROWTH AFTER 3 DAYS Med Orders - Current: Current Medications Acetaminophen (Tylenol) 650 mg PO Q4H PRN PRN Reason: Fever Last Admin: 02/08/19 21:57 Dose: 650 mg Albuterol/Ipratropium (Duoneb 3.0-0.5 Mg/3 Ml) 3 ml NEB Q4H PRN PRN Reason: Dyspnea Last Admin: 02/08/19 07:00 Dose: 3 ml Ascorbic Acid (Vitamin C) 500 mg PO DAILY [facility] Last Admin: 02/08/19 10:32 Dose: 500 mg Bisacodyl (Dulcolax) 10 - 20 mg RECTAL DAILY PRN PRN Reason: Constipation Bisacodyl (Dulcolax) 10 mg PO Q48H [facility] Bisacodyl (Dulcolax) 10 mg RECTAL DAILY PRN PRN Reason: Constipation Last Admin: 02/08/19 10:41 Dose: 10 mg Cetirizine HCl (Zyrtec) 10 mg PO DAILY PRN PRN Reason: Allergies Last Admin: 02/08/19 16:29 Dose: 10 mg Cholecalciferol (Vitamin D3) 2,000 units PO DAILY [facility] Last Admin: 02/08/19 10:32 Dose: 2,000 units Cranberry (Cranberry) 500 mg PO DAILY [facility] Last Admin: 02/08/19 10:32 Dose: 500 mg Diazepam (Valium.) 5 mg PO QID [facility] Last Admin: 02/08/19 21:28 Dose: 5 mg Docusate Sodium (Colace) 100 mg PO BID [facility] Last Admin: 02/08/19 21:28 Dose: 100 mg Enoxaparin Sodium (Lovenox) 40 mg SUBCUT Q24H [facility] Last Admin: 02/08/19 10:25 Dose: 40 mg Piperacillin Sod/Tazobactam (Sod 3.375 gm/ Sodium Chloride) 50 mls @ 100 mls/ hr IV Q6H [facility] Last Admin: 02/09/19 03:49 Dose: 100 mls/hr Vancomycin HCl 750 mg/Vancomycin HCl 500 mg/ Sodium Chloride 250 mls @ 167 mls/ hr IV Q12H [facility] Last Admin: 02/08/19 22:25 Dose: 167 mls/hr Sodium Chloride (Normal Saline) 250 mls @ 0 mls/hr IV ASDIRECTED [facility] Last Admin: 02/09/19 03:49 Dose: 30 mls/hr Melatonin (Melatonin) 10 mg PO BEDTIME [facility] Last Admin: 02/08/19 23:26 Dose: Not Given (Azelastine/Fluticasone [Dymista Nasal [place]] 1 [place]) *Ptom 1 spray NASBOTH BID PRN PRN Reason: Allergies Last Admin: 02/07/19 09:09 Dose: 1 spray Sodium Chloride (Saline Flush) 10 ml FLUSH ASDIRECTED PRN PRN Reason: Keep Vein Open Last Admin: 02/09/19 00:14 Dose: 10 ml Sodium Chloride (Saline Flush) 10 ml FLUSH ASDIRECTED PRN PRN Reason: Keep Vein Open Tolterodine Tartrate (Detrol La 24 Hr) 4 mg PO DAILY [facility] Last Admin: 02/08/19 10:32 Dose: 4 mg Vancomycin HCl (Pharmacy To Dose - Vancomycin) 1 dose .XX ASDIRECTED [place] Discontinued Medications Bisacodyl (Dulcolax) 10 mg PO Q48H [facility] Last Admin: 02/06/19 09:51 Dose: Not Given Bisacodyl (Dulcolax) 20 mg RECTAL DAILY PRN PRN Reason: Constipation Bisacodyl (Dulcolax) 10 mg PO Q48H [facility] Last Admin: 02/07/19 09:54 Dose: 10 mg Diazepam (Valium.) 5 mg PO ONETIME ONE Stop: 02/06/19 04:13 Last Admin: 02/06/19 04:27 Dose: 5 mg Enoxaparin Sodium (Lovenox) 40 mg SUBCUT Q24H [facility] Last Admin: 02/05/19 14:40 Dose: Not Given Fluticasone Propionate (Flonase) 0 gm NASBOTH BID [facility] Last Admin: 02/07/19 20:42 Dose: Not Given Furosemide (Lasix) 40 mg IVPUSH NOW ONE Stop: 02/08/19 11:43 Last Admin: 02/08/19 13:53 Dose: 40 mg Levofloxacin/Dextrose 750 mg/ (Premix) 150 mls @ 100 mls/hr IV Q24H [facility] Last Admin: 02/07/19 14:48 Dose: 100 mls/hr Sodium Chloride (Normal Saline) 1,000 mls @ 125 mls/hr IV ASDIRECTED [facility] Last Admin: 02/07/19 06:03 Dose: 125 mls/hr Cholecalciferol ( Vitamin D3) [Vitamin D3] 2,000 Unit * Ptom 0 unit PO DAILY [facility] Last Admin: 02/07/19 09:07 Dose: 2,000 unit Melatonin [Melatonin (] 10 Mg *Ptom) 0 mg PO BEDTIME [facility] Last Admin: 02/07/19 20:41 Dose: 10 mg Polysaccharide Iron Complex (Ferrex 150) 150 mg PO BID [facility] Last Admin: 02/06/19 20:20 Dose: 150 mg Potassium Chloride (Klor-Con M20) 20 meq PO BIDMEALS [facility] Last Admin: 02/06/19 18:38 Dose: Not Given Potassium Chloride (Klor-Con M20) 20 meq PO DAILY [facility] Last Admin: 02/06/19 10:14 Dose: 20 meq Tolterodine Tartrate (Detrol La 24 Hr) 4 mg PO DAILY [facility] Last Admin: 02/07/19 09:09 Dose: 4 mg - Exam Quality Assessment: Supplemental Oxygen General: Alert, Oriented HEENT: Pupils Equal Neck: Supple Lungs: Decreased Breath Sounds Cardiovascular: Regular Rate, Regular Rhythm GI/Abdominal Exam: Distended Extremities: Pedal Edema Psy/Mental Status: Alert, Normal Affect - Problem List & Annotations (1) SOB (shortness of breath) SNOMED Code(s): 849946880 Code(s): R06.02 - SHORTNESS OF BREATH Status: Acute (2) Anemia SNOMED Code(s): 772391379 Code(s): D64.9 - ANEMIA, UNSPECIFIED Status: Acute (3) Hypoxia SNOMED Code(s): 952368489 Code(s): R09.02 - HYPOXEMIA Status: Acute (4) Palliative care status SNOMED Code(s): 445312979 Code(s): Z51.5 - ENCOUNTER FOR PALLIATIVE CARE Status: Acute (5) Pneumonia SNOMED Code(s): 995789903 Code(s): J18.9 - PNEUMONIA, UNSPECIFIED ORGANISM Status: Acute (6) Quadriplegic spinal paralysis SNOMED Code(s): 632500941 Code(s): G82.50 - QUADRIPLEGIA, UNSPECIFIED Status: Acute (7) Fecal impaction SNOMED Code(s): 30918413 Code(s): K56.41 - FECAL IMPACTION Status: Acute (8) UTI (urinary tract infection) SNOMED Code(s): 45467111 Code(s): N39.0 - URINARY TRACT INFECTION, SITE NOT SPECIFIED Status: Acute - Problem List Review Problem List Initiated/Reviewed/Updated: Yes - Plan Plan:: - Continue Zosyn and Vancomycin for PNA - Will get ECHO - Monitor vital sign - Continue respiratory therapy <Adilson Villeda - Last Filed: 02/10/19 15:16> - Patient Data Vitals - Most Recent: Last Vital Signs Temp 99.7 F 02/09/19 08:00 Pulse 99 02/09/19 08:00 Resp 16 02/09/19 08:00 BP 127/76 02/09/19 08:00 Pulse Ox 92 L 02/09/19 06:10 Felipe Results Last 24 Hours: Microbiology 02/05/19 14:50 Aerobic Blood Culture - Final Blood - Venous - Lab Draw NO GROWTH AFTER 5 DAYS Anaerobic Blood Culture - Final NO GROWTH AFTER 5 DAYS 02/05/19 14:45 Aerobic Blood Culture - Final Blood - Venous NO GROWTH AFTER 5 DAYS Anaerobic Blood Culture - Final NO GROWTH AFTER 5 DAYS Med Orders - Current: Current Medications Discontinued Medications Acetaminophen (Tylenol) 650 mg PO Q4H PRN PRN Reason: Fever Last Admin: 02/09/19 09:43 Dose: 650 mg Albuterol/Ipratropium (Duoneb 3.0-0.5 Mg/3 Ml) 3 ml NEB Q4H PRN PRN Reason: Dyspnea Last Admin: 02/08/19 07:00 Dose: 3 ml Ascorbic Acid (Vitamin C) 500 mg PO DAILY [facility] Last Admin: 02/09/19 08:50 Dose: 500 mg Bisacodyl (Dulcolax) 10 mg PO Q48H [facility] Last Admin: 02/06/19 09:51 Dose: Not Given Bisacodyl (Dulcolax) 20 mg RECTAL DAILY PRN PRN Reason: Constipation Bisacodyl (Dulcolax) 10 - 20 mg RECTAL DAILY PRN PRN Reason: Constipation Bisacodyl (Dulcolax) 10 mg PO Q48H [facility] Last Admin: 02/07/19 09:54 Dose: 10 mg Bisacodyl (Dulcolax) 10 mg PO Q48H [facility] Last Admin: 02/09/19 09:35 Dose: 10 mg Bisacodyl (Dulcolax) 10 mg RECTAL DAILY PRN PRN Reason: Constipation Last Admin: 02/08/19 10:41 Dose: 10 mg Cetirizine HCl (Zyrtec) 10 mg PO DAILY PRN PRN Reason: Allergies Last Admin: 02/08/19 16:29 Dose: 10 mg Cholecalciferol (Vitamin D3) 2,000 units PO DAILY [facility] Last Admin: 02/09/19 08:50 Dose: 2,000 units Cranberry (Cranberry) 500 mg PO DAILY [facility] Last Admin: 02/09/19 08:49 Dose: 500 mg Diazepam (Valium.) 5 mg PO QID [facility] Last Admin: 02/09/19 08:51 Dose: 5 mg Diazepam (Valium.) 5 mg PO ONETIME ONE Stop: 02/06/19 04:13 Last Admin: 02/06/19 04:27 Dose: 5 mg Docusate Sodium (Colace) 100 mg PO BID [facility] Last Admin: 02/09/19 08:49 Dose: 100 mg Enoxaparin Sodium (Lovenox) 40 mg SUBCUT Q24H [facility] Last Admin: 02/05/19 14:40 Dose: Not Given Enoxaparin Sodium (Lovenox) 40 mg SUBCUT Q24H [facility] Last Admin: 02/09/19 08:50 Dose: 40 mg Fluticasone Propionate (Flonase) 0 gm NASBOTH BID [facility] Last Admin: 02/07/19 20:42 Dose: Not Given Furosemide (Lasix) 40 mg IVPUSH NOW ONE Stop: 02/08/19 11:43 Last Admin: 02/08/19 13:53 Dose: 40 mg Furosemide (Lasix) 40 mg IVPUSH NOW ONE Stop: 02/09/19 08:45 Last Admin: 02/09/19 09:08 Dose: 40 mg Levofloxacin/Dextrose 750 mg/ (Premix) 150 mls @ 100 mls/hr IV Q24H [facility] Last Admin: 02/07/19 14:48 Dose: 100 mls/hr Sodium Chloride (Normal Saline) 1,000 mls @ 125 mls/hr IV ASDIRECTED [facility] Last Admin: 02/07/19 06:03 Dose: 125 mls/hr Piperacillin Sod/Tazobactam (Sod 3.375 gm/ Sodium Chloride) 50 mls @ 100 mls/ hr IV Q6H [facility] Last Admin: 02/09/19 09:36 Dose: 100 mls/hr Vancomycin HCl 750 mg/Vancomycin HCl 500 mg/ Sodium Chloride 250 mls @ 167 mls/ hr IV Q12H [facility] Last Admin: 02/08/19 22:25 Dose: 167 mls/hr Sodium Chloride (Normal Saline) 250 mls @ 0 mls/hr IV ASDIRECTED [facility] Last Admin: 02/09/19 03:49 Dose: 30 mls/hr Melatonin (Melatonin) 10 mg PO BEDTIME [facility] Last Admin: 02/08/19 23:26 Dose: Not Given (Azelastine/Fluticasone [Dymista Nasal [place]] 1 [place]) *Ptom 1 spray NASBOTH BID PRN PRN Reason: Allergies Last Admin: 02/07/19 09:09 Dose: 1 spray Cholecalciferol ( Vitamin D3) [Vitamin D3] 2,000 Unit * Ptom 0 unit PO DAILY [facility] Last Admin: 02/07/19 09:07 Dose: 2,000 unit Melatonin [Melatonin (] 10 Mg *Ptom) 0 mg PO BEDTIME [facility] Last Admin: 02/07/19 20:41 Dose: 10 mg Polysaccharide Iron Complex (Ferrex 150) 150 mg PO BID [facility] Last Admin: 02/06/19 20:20 Dose: 150 mg Potassium Chloride (Klor-Con M20) 20 meq PO BIDMEALS [facility] Last Admin: 02/06/19 18:38 Dose: Not Given Potassium Chloride (Klor-Con M20) 20 meq PO DAILY [facility] Last Admin: 02/06/19 10:14 Dose: 20 meq Sodium Chloride (Saline Flush) 10 ml FLUSH ASDIRECTED PRN PRN Reason: Keep Vein Open Last Admin: 02/09/19 09:35 Dose: 10 ml Sodium Chloride (Saline Flush) 10 ml FLUSH ASDIRECTED PRN PRN Reason: Keep Vein Open Tolterodine Tartrate (Detrol La 24 Hr) 4 mg PO DAILY [facility] Last Admin: 02/07/19 09:09 Dose: 4 mg Tolterodine Tartrate (Detrol La 24 Hr) 4 mg PO DAILY [facility] Last Admin: 02/09/19 08:50 Dose: 4 mg Vancomycin HCl (Pharmacy To Dose - Vancomycin) 1 dose .XX ASDIRECTED [facility] - Problem List & Annotations (1) Pneumonia SNOMED Code(s): 862340128 Code(s): J18.9 - PNEUMONIA, UNSPECIFIED ORGANISM Status: Acute (2) Dehydration SNOMED Code(s): 57429223 Code(s): E86.0 - DEHYDRATION Status: Acute (3) Hypokalemia SNOMED Code(s): 71337121 Code(s): E87.6 - HYPOKALEMIA Status: Acute (4) Hyponatremia SNOMED Code(s): 25459290 Code(s): E87.1 - HYPO-OSMOLALITY AND HYPONATREMIA Status: Acute (5) Palliative care status SNOMED Code(s): 056090130 Code(s): Z51.5 - ENCOUNTER FOR PALLIATIVE CARE Status: Acute (6) Quadriplegic spinal paralysis SNOMED Code(s): 584927249 Code(s): G82.50 - QUADRIPLEGIA, UNSPECIFIED Status: Acute (7) Anemia SNOMED Code(s): 996858138 Code(s): D64.9 - ANEMIA, UNSPECIFIED Status: Acute (8) Hypoxia SNOMED Code(s): 405038527 Code(s): R09.02 - HYPOXEMIA Status: Acute - Plan Plan:: Eyes as they have seen this patient with the resident and examine them.
[2019-02-09] MEDS ORDERED: Furosemide 40 MG/4 ML VIAL IVPUSH ONE (08:44)
[2019-02-09] MEDS: Cranberry 500 MG Cap PO SCH (08:49)
[2019-02-09] MEDS: Docusate Sodium 100 MG Cap PO SCH (08:49)
[2019-02-09] MEDS: Enoxaparin 40 MG/0.4 ML Syringe SUBCUT SCH (08:50)
[2019-02-09] MEDS: Cholecalciferol (Vitamin D3) 1,000 Unit Tab PO SCH (08:50)
[2019-02-09] MEDS: Ascorbic Acid 500 MG Tab PO SCH (08:50)
[2019-02-09] MEDS: Tolterodine 4 MG Cap.ER PO SCH (08:50)
[2019-02-09] MEDS: Diazepam 5 MG Tab PO SCH (08:51)
--- NOTE | 2019-02-09 09:00 | PCM.DCSUM1 ---
<JhonatanTy - Last Filed: 02/09/19 08:53> Discharge Summary - Hospital Course Free Text/Narrative:: This is 53 years old male who admitted to the hospital on 02/05 for right side pneumonia. Patient was started on Levaquin. he was doing well, till yesterday he spiked a fever of 102.7, and his O2 sat dropped to 80% requiring 6 L of Oxygen. chest Xray didn't show new changes, but concern about CHF. Patient was switch to Zoysn and Vancomycin on 02/08. Blood culture negative. Given No significant improvement noticed. with worsening of respiratory symptoms and new heart murmur, decision to transfer patient to [facility]. [facility]merer Helper hospitalitis Dr.Mohamed Owen accepted patient. Patient will transfer to [facility] for further management. Diagnosis: Stroke: No - Discharge Data Discharge Date: 02/09/19 Discharge Disposition: DC/[facility] to [facility] Condition: Good - Discharge Diagnosis/Problem(s) (1) SOB (shortness of breath) SNOMED Code(s): 709319723 ICD Code: R06.02 - SHORTNESS OF BREATH Status: Acute (2) Anemia SNOMED Code(s): 718535057 ICD Code: D64.9 - ANEMIA, UNSPECIFIED Status: Acute (3) Hypoxia SNOMED Code(s): 779842329 ICD Code: R09.02 - HYPOXEMIA Status: Acute (4) Palliative care status SNOMED Code(s): 462026106 ICD Code: Z51.5 - ENCOUNTER FOR PALLIATIVE CARE Status: Acute (5) Pneumonia SNOMED Code(s): 059590192 ICD Code: J18.9 - PNEUMONIA, UNSPECIFIED ORGANISM Status: Acute (6) Quadriplegic spinal paralysis SNOMED Code(s): 851494884 ICD Code: G82.50 - QUADRIPLEGIA, UNSPECIFIED Status: Acute (7) Fecal impaction SNOMED Code(s): 15184164 ICD Code: K56.41 - FECAL IMPACTION Status: Acute (8) UTI (urinary tract infection) SNOMED Code(s): 59657711 ICD Code: N39.0 - URINARY TRACT INFECTION, SITE NOT SPECIFIED Status: Acute - Patient Summary/Data Consults: Consultations 02/07/19 08:01 Consult to Occupational Therapy [OT Evaluation and Treatment] [CONS] Routine Please Evaluate and Treat. OT Reason for Consult: Strengthening This query below is only for informational purposes and is not editable. Admission Diagnosis/Problem: Pneumonia Consult to Physical Therapy [PT Evaluation and Treatment] [CONS] Routine Please Evaluate and Treat. PT Reason for Consult: Strengthening This query below is only for informational purposes and is not editable. Admission Diagnosis/Problem: Pneumonia - Discharge Plan Home Medications: Home Meds Diazepam [Valium] 5 mg PO QID 07/10/18 [History] Docusate Sodium [Colace] 100 mg PO BID 07/10/18 [History] Tolterodine [Detrol LA 24 Hr] 4 mg PO DAILY 07/10/18 [History] Nitrofurantoin Macrocrystal [Macrodantin] 100 mg PO BIDMEALS 02/03/19 [History] Ascorbate Calcium [Vitamin C] 500 mg PO DAILY 02/05/19 [History] Azelastine/Fluticasone [Dymista Nasal [place]] 1 spray NASBOTH BID PRN 02/05/19 [ History] Bisacodyl [Laxative] 10 mg PO Q48H 02/05/19 [History] Cetirizine [ZyrTEC] 10 mg PO DAILY PRN 02/05/19 [History] Cholecalciferol (Vitamin D3) [Vitamin D3] 2,000 unit PO DAILY 02/05/19 [History] Cranberry 500 mg PO DAILY 02/05/19 [History] Melatonin 10 mg PO BEDTIME 02/05/19 [History] Acetaminophen [Tylenol] 650 mg PO Q4H PRN tablet 02/09/19 [Rx] Albuterol/Ipratropium [DuoNeb 3.0-0.5 MG/3 ML] 3 ml NEB Q4H PRN neb 02/09/19 [ Rx] Bisacodyl [Dulcolax] 10 - 20 mg RECTAL DAILY PRN supp 02/09/19 [Rx] Bisacodyl [Dulcolax] 10 mg RECTAL DAILY PRN supp 02/09/19 [Rx] Enoxaparin [Lovenox] 40 mg SUBCUT Q24H syringe 02/09/19 [Rx] Pharmacy to Dose - Vancomycin 1 dose .XX ASDIRECTED each 02/09/19 [Rx] Piperacillin/Tazobactam [Zosyn] 3.375 gm IV Q6H vial 02/09/19 [Rx] Sodium Chloride 0.9% [Saline Flush] 10 ml FLUSH ASDIRECTED PRN syringe [Rx] Sodium Chloride 0.9% [Saline Flush] 10 ml FLUSH ASDIRECTED PRN syringe [Rx] Vancomycin 500 mg IV Q12H sdv 02/09/19 [Rx] Vancomycin 750 mg IV Q12H sdv 02/09/19 [Rx] Patient Handouts: Pleural Effusion, Heart Failure, [id number], Community- Acquired Pneumonia, Adult, [id number] - Discharge Summary/Plan Comment DC Time >30 min.: Yes - General Info Date of Service: 02/09/19 - Review of Systems General: Reports: Fever, Weakness, Fatigue, Chills HEENT: Reports: No Symptoms, Contact Lenses Pulmonary: Reports: Shortness of Breath, Pleuritic Chest Pain, Cough, Sputum Cardiovascular: Reports: Chest Pain, Dyspnea on Exertion, Edema, Lightheadedness Gastrointestinal: Reports: Abdominal Pain, Constipation Genitourinary: Reports: Frequency, Incontinence Musculoskeletal: Reports: Other (Quadriplagia ) Neurological: Reports: Headache Psychiatric: Reports: No Symptoms - Patient Data Vitals - Most Recent: Last Vital Signs Temp 37.3 C 02/09/19 06:10 Pulse 92 02/09/19 06:10 Resp 16 02/09/19 06:10 BP 121/72 02/09/19 06:10 Pulse Ox 92 L 02/09/19 06:10 Weight - Most Recent: 195 lb I&O - Last 24 hours: Intake & Output 02/08/19 02/09/19 02/09/19 22:59 06:59 14:59 Intake Total 2600 590 Output Total 2750 1925 Balance -150 -1335 Lab Results - Last 24 hrs: Laboratory Results - last 24 hr 02/08/19 02/09/19 Range/Units 11:00 06:05 Sodium 139 (135-145) mmol/L Potassium 4.0 (3.5-5.3) mmol/L Chloride 97 L (100-110) mmol/L Carbon Dioxide 47 H* (21-32) mmol/L BUN 5 L (7-18) mg/dL Creatinine 0.6 L (0.70-1.30) mg/dL Est Cr Clr Drug Dosing 167.44 mL/min Estimated GFR (MDRD) > 60 (>60) BUN/Creatinine Ratio 8.3 L (9-20) Glucose 103 (80-116) mg/dL Calcium 8.0 L (8.6-10.2) mg/dL Total Bilirubin 0.6 (0.1-1.3) mg/dL AST 36 H D (5-25) IU/L ALT 40 H D (12-36) U/L Alkaline Phosphatase 93 (56-112) IU/L NT-Pro-B Natriuret Pep 1024 H* (<=125) pg/mL Total Protein 6.8 (6.0-8.0) g/dL Albumin 1.9 L (3.5-5.2) g/dL Globulin 4.9 g/dL Albumin/Globulin Ratio 0.4 KRIS Results - Last 24 hrs: Microbiology 02/05/19 14:50 Aerobic Blood Culture - Preliminary Blood - Venous - Lab Draw NO GROWTH AFTER 3 DAYS Anaerobic Blood Culture - Preliminary NO GROWTH AFTER 3 DAYS 02/05/19 14:45 Aerobic Blood Culture - Preliminary Blood - Venous NO GROWTH AFTER 3 DAYS Anaerobic Blood Culture - Preliminary NO GROWTH AFTER 3 DAYS Med Orders - Current: Current Medications Acetaminophen (Tylenol) 650 mg PO Q4H PRN PRN Reason: Fever Last Admin: 02/08/19 21:57 Dose: 650 mg Albuterol/Ipratropium (Duoneb 3.0-0.5 Mg/3 Ml) 3 ml NEB Q4H PRN PRN Reason: Dyspnea Last Admin: 02/08/19 07:00 Dose: 3 ml Ascorbic Acid (Vitamin C) 500 mg PO DAILY EDEN Last Admin: 02/08/19 10:32 Dose: 500 mg Bisacodyl (Dulcolax) 10 - 20 mg RECTAL DAILY PRN PRN Reason: Constipation Bisacodyl (Dulcolax) 10 mg PO Q48H [facility] Bisacodyl (Dulcolax) 10 mg RECTAL DAILY PRN PRN Reason: Constipation Last Admin: 02/08/19 10:41 Dose: 10 mg Cetirizine HCl (Zyrtec) 10 mg PO DAILY PRN PRN Reason: Allergies Last Admin: 02/08/19 16:29 Dose: 10 mg Cholecalciferol (Vitamin D3) 2,000 units PO DAILY [facility] Last Admin: 02/08/19 10:32 Dose: 2,000 units Cranberry (Cranberry) 500 mg PO DAILY [facility] Last Admin: 02/08/19 10:32 Dose: 500 mg Diazepam (Valium.) 5 mg PO QID [facility] Last Admin: 02/08/19 21:28 Dose: 5 mg Docusate Sodium (Colace) 100 mg PO BID [facility] Last Admin: 02/08/19 21:28 Dose: 100 mg Enoxaparin Sodium (Lovenox) 40 mg SUBCUT Q24H [facility] Last Admin: 02/08/19 10:25 Dose: 40 mg Piperacillin Sod/Tazobactam (Sod 3.375 gm/ Sodium Chloride) 50 mls @ 100 mls/ hr IV Q6H [facility] Last Admin: 02/09/19 03:49 Dose: 100 mls/hr Vancomycin HCl 750 mg/Vancomycin HCl 500 mg/ Sodium Chloride 250 mls @ 167 mls/ hr IV Q12H [facility] Last Admin: 02/08/19 22:25 Dose: 167 mls/hr Sodium Chloride (Normal Saline) 250 mls @ 0 mls/hr IV ASDIRECTED [facility] Last Admin: 02/09/19 03:49 Dose: 30 mls/hr Melatonin (Melatonin) 10 mg PO BEDTIME [facility] Last Admin: 02/08/19 23:26 Dose: Not Given (Azelastine/Fluticasone [Dymista Nasal [place]] 1 [place]) *Ptom 1 spray NASBOTH BID PRN PRN Reason: Allergies Last Admin: 02/07/19 09:09 Dose: 1 spray Sodium Chloride (Saline Flush) 10 ml FLUSH ASDIRECTED PRN PRN Reason: Keep Vein Open Last Admin: 02/09/19 00:14 Dose: 10 ml Sodium Chloride (Saline Flush) 10 ml FLUSH ASDIRECTED PRN PRN Reason: Keep Vein Open Tolterodine Tartrate (Detrol La 24 Hr) 4 mg PO DAILY [facility] Last Admin: 02/08/19 10:32 Dose: 4 mg Vancomycin HCl (Pharmacy To Dose - Vancomycin) 1 dose .XX ASDIRECTED [facility] Discontinued Medications Bisacodyl (Dulcolax) 10 mg PO Q48H [facility] [place] Last Admin: 02/06/19 09:51 Dose: Not Given Bisacodyl (Dulcolax) 20 mg RECTAL DAILY PRN PRN Reason: Constipation Bisacodyl (Dulcolax) 10 mg PO Q48H [facility] Last Admin: 02/07/19 09:54 Dose: 10 mg Diazepam (Valium.) 5 mg PO ONETIME ONE Stop: 02/06/19 04:13 Last Admin: 02/06/19 04:27 Dose: 5 mg Enoxaparin Sodium (Lovenox) 40 mg SUBCUT Q24H [facility] Last Admin: 02/05/19 14:40 Dose: Not Given Fluticasone Propionate (Flonase) 0 gm NASBOTH BID [facility] Last Admin: 02/07/19 20:42 Dose: Not Given Furosemide (Lasix) 40 mg IVPUSH NOW ONE Stop: 02/08/19 11:43 Last Admin: 02/08/19 13:53 Dose: 40 mg Furosemide (Lasix) 40 mg IVPUSH NOW ONE Stop: 02/09/19 08:45 Levofloxacin/Dextrose 750 mg/ (Premix) 150 mls @ 100 mls/hr IV Q24H [facility] Last Admin: 02/07/19 14:48 Dose: 100 mls/hr Sodium Chloride (Normal Saline) 1,000 mls @ 125 mls/hr IV ASDIRECTED [facility] Last Admin: 02/07/19 06:03 Dose: 125 mls/hr Cholecalciferol ( Vitamin D3) [Vitamin D3] 2,000 Unit * Ptom 0 unit PO DAILY [facility] Last Admin: 02/07/19 09:07 Dose: 2,000 unit Melatonin [Melatonin (] 10 Mg *Ptom) 0 mg PO BEDTIME [facility] Last Admin: 02/07/19 20:41 Dose: 10 mg Polysaccharide Iron Complex (Ferrex 150) 150 mg PO BID [facility] Last Admin: 02/06/19 20:20 Dose: 150 mg Potassium Chloride (Klor-Con M20) 20 meq PO BIDMEALS [facility] Last Admin: 02/06/19 18:38 Dose: Not Given Potassium Chloride (Klor-Con M20) 20 meq PO DAILY [facility] Last Admin: 02/06/19 10:14 Dose: 20 meq Tolterodine Tartrate (Detrol La 24 Hr) 4 mg PO DAILY [facility] Last Admin: 02/07/19 09:09 Dose: 4 mg - Exam General: Reports: Alert, Oriented HEENT: Reports: Pupils Equal Neck: Reports: Supple Lungs: Reports: Decreased Breath Sounds Cardiovascular: Reports: Murmurs GI/Abdominal Exam: Distended Back Exam: Reports: Decreased Range of Motion Extremities: Pedal Edema Psy/Mental Status: Reports: Alert, Normal Affect <Adilson Villeda - Last Filed: 02/10/19 15:17> Discharge Summary - Discharge Diagnosis/Problem(s) (1) Pneumonia SNOMED Code(s): 471890512 ICD Code: J18.9 - PNEUMONIA, UNSPECIFIED ORGANISM Status: Acute (2) Dehydration SNOMED Code(s): 04534597 ICD Code: E86.0 - DEHYDRATION Status: Acute (3) Hypokalemia SNOMED Code(s): 47415024 ICD Code: E87.6 - HYPOKALEMIA Status: Acute (4) Hyponatremia SNOMED Code(s): 39932472 ICD Code: E87.1 - HYPO-OSMOLALITY AND HYPONATREMIA Status: Acute (5) Palliative care status SNOMED Code(s): 928948080 ICD Code: Z51.5 - ENCOUNTER FOR PALLIATIVE CARE Status: Acute (6) Quadriplegic spinal paralysis SNOMED Code(s): 599095711 ICD Code: G82.50 - QUADRIPLEGIA, UNSPECIFIED Status: Acute (7) Anemia SNOMED Code(s): 861193876 ICD Code: D64.9 - ANEMIA, UNSPECIFIED Status: Acute (8) Hypoxia SNOMED Code(s): 571551679 ICD Code: R09.02 - HYPOXEMIA Status: Acute - Patient Summary/Data Consults: Consultations 02/07/19 08:01 Consult to Occupational Therapy [OT Evaluation and Treatment] [CONS] Routine Please Evaluate and Treat. OT Reason for Consult: Strengthening This query below is only for informational purposes and is not editable. Admission Diagnosis/Problem: Pneumonia Consult to Physical Therapy [PT Evaluation and Treatment] [CONS] Routine Please Evaluate and Treat. PT Reason for Consult: Strengthening This query below is only for informational purposes and is not editable. Admission Diagnosis/Problem: Pneumonia - Discharge Summary/Plan Comment Discharge Summary/Plan Comment: I attest I seen this patient examined him with the resident. - Patient Data Vitals - Most Recent: Last Vital Signs Temp 99.7 F 02/09/19 08:00 Pulse 99 02/09/19 08:00 Resp 16 02/09/19 08:00 BP 127/76 02/09/19 08:00 Pulse Ox 92 L 02/09/19 06:10 KRIS Results - Last 24 hrs: Microbiology 02/05/19 14:50 Aerobic Blood Culture - Final Blood - Venous - Lab Draw NO GROWTH AFTER 5 DAYS Anaerobic Blood Culture - Final NO GROWTH AFTER 5 DAYS 02/05/19 14:45 Aerobic Blood Culture - Final Blood - Venous NO GROWTH AFTER 5 DAYS Anaerobic Blood Culture - Final NO GROWTH AFTER 5 DAYS Med Orders - Current: Current Medications Discontinued Medications Acetaminophen (Tylenol) 650 mg PO Q4H PRN PRN Reason: Fever Last Admin: 02/09/19 09:43 Dose: 650 mg Albuterol/Ipratropium (Duoneb 3.0-0.5 Mg/3 Ml) 3 ml NEB Q4H PRN PRN Reason: Dyspnea Last Admin: 02/08/19 07:00 Dose: 3 ml Ascorbic Acid (Vitamin C) 500 mg PO DAILY [facility] Last Admin: 02/09/19 08:50 Dose: 500 mg Bisacodyl (Dulcolax) 10 mg PO Q48H [facility] Last Admin: 02/06/19 09:51 Dose: Not Given Bisacodyl (Dulcolax) 20 mg RECTAL DAILY PRN PRN Reason: Constipation Bisacodyl (Dulcolax) 10 - 20 mg RECTAL DAILY PRN PRN Reason: Constipation Bisacodyl (Dulcolax) 10 mg PO Q48H [facility] Last Admin: 02/07/19 09:54 Dose: 10 mg Bisacodyl (Dulcolax) 10 mg PO Q48H [facility] Last Admin: 02/09/19 09:35 Dose: 10 mg Bisacodyl (Dulcolax) 10 mg RECTAL DAILY PRN PRN Reason: Constipation Last Admin: 02/08/19 10:41 Dose: 10 mg Cetirizine HCl (Zyrtec) 10 mg PO DAILY PRN PRN Reason: Allergies Last Admin: 02/08/19 16:29 Dose: 10 mg Cholecalciferol (Vitamin D3) 2,000 units PO DAILY [facility] Last Admin: 02/09/19 08:50 Dose: 2,000 units Cranberry (Cranberry) 500 mg PO DAILY [facility] Last Admin: 02/09/19 08:49 Dose: 500 mg Diazepam (Valium.) 5 mg PO QID [facility] Last Admin: 02/09/19 08:51 Dose: 5 mg Diazepam (Valium.) 5 mg PO ONETIME ONE Stop: 02/06/19 04:13 Last Admin: 02/06/19 04:27 Dose: 5 mg Docusate Sodium (Colace) 100 mg PO BID [facility] Last Admin: 02/09/19 08:49 Dose: 100 mg Enoxaparin Sodium (Lovenox) 40 mg SUBCUT Q24H [facility] Last Admin: 02/05/19 14:40 Dose: Not Given Enoxaparin Sodium (Lovenox) 40 mg SUBCUT Q24H [facility] Last Admin: 02/09/19 08:50 Dose: 40 mg Fluticasone Propionate (Flonase) 0 gm NASBOTH BID [facility] Last Admin: 02/07/19 20:42 Dose: Not Given Furosemide (Lasix) 40 mg IVPUSH NOW ONE Stop: 02/08/19 11:43 Last Admin: 02/08/19 13:53 Dose: 40 mg Furosemide (Lasix) 40 mg IVPUSH NOW ONE Stop: 02/09/19 08:45 Last Admin: 02/09/19 09:08 Dose: 40 mg Levofloxacin/Dextrose 750 mg/ (Premix) 150 mls @ 100 mls/hr IV Q24H [facility] [place] Last Admin: 02/07/19 14:48 Dose: 100 mls/hr Sodium Chloride (Normal Saline) 1,000 mls @ 125 mls/hr IV ASDIRECTED [facility] Last Admin: 02/07/19 06:03 Dose: 125 mls/hr Piperacillin Sod/Tazobactam (Sod 3.375 gm/ Sodium Chloride) 50 mls @ 100 mls/ hr IV Q6H [facility] [place] Last Admin: 02/09/19 09:36 Dose: 100 mls/hr Vancomycin HCl 750 mg/Vancomycin HCl 500 mg/ Sodium Chloride 250 mls @ 167 mls/ hr IV Q12H [facility] [place] Last Admin: 02/08/19 22:25 Dose: 167 mls/hr Sodium Chloride (Normal Saline) 250 mls @ 0 mls/hr IV ASDIRECTED [facility] Last Admin: 02/09/19 03:49 Dose: 30 mls/hr Melatonin (Melatonin) 10 mg PO BEDTIME [facility] Last Admin: 02/08/19 23:26 Dose: Not Given (Azelastine/Fluticasone [Dymista Nasal [place]] 1 [place]) *Ptom 1 spray NASBOTH BID PRN PRN Reason: Allergies Last Admin: 02/07/19 09:09 Dose: 1 spray Cholecalciferol ( Vitamin D3) [Vitamin D3] 2,000 Unit * Ptom 0 unit PO DAILY [facility] Last Admin: 02/07/19 09:07 Dose: 2,000 unit Melatonin [Melatonin (] 10 Mg *Ptom) 0 mg PO BEDTIME [facility] Last Admin: 02/07/19 20:41 Dose: 10 mg Polysaccharide Iron Complex (Ferrex 150) 150 mg PO BID [facility] Last Admin: 02/06/19 20:20 Dose: 150 mg Potassium Chloride (Klor-Con M20) 20 meq PO BIDMEALS [facility] Last Admin: 02/06/19 18:38 Dose: Not Given Potassium Chloride (Klor-Con M20) 20 meq PO DAILY [facility] Last Admin: 02/06/19 10:14 Dose: 20 meq Sodium Chloride (Saline Flush) 10 ml FLUSH ASDIRECTED PRN PRN Reason: Keep Vein Open Last Admin: 02/09/19 09:35 Dose: 10 ml Sodium Chloride (Saline Flush) 10 ml FLUSH ASDIRECTED PRN PRN Reason: Keep Vein Open Tolterodine Tartrate (Detrol La 24 Hr) 4 mg PO DAILY [facility] [place] Last Admin: 02/07/19 09:09 Dose: 4 mg Tolterodine Tartrate (Detrol La 24 Hr) 4 mg PO DAILY [facility] Last Admin: 02/09/19 08:50 Dose: 4 mg Vancomycin HCl (Pharmacy To Dose - Vancomycin) 1 dose .XX ASDIRECTED [facility]
[2019-02-09] MEDS: Acetaminophen 325 MG Tab PO PRN (09:43)
[2019-02-09] MEDS ORDERED: BISACODYL 5 MG PO SCH (10:00)
== END 2019-02-09 09:55 | DRG 193 ==
LOC: FB.MS 08:00 → OBSVTOIN 02-07 08:00
PROVIDERS: ADMIT Family Medicine; ATTEND Family Medicine
DX: J18.9 Pneumonia, unspecified organism (principal); R53.1 Weakness; G82.50 Quadriplegia, unspecified; R05 Cough; N39.0 Urinary tract infection, site not specified; E87.1 Hypo-osmolality and hyponatremia; Z51.5 Encounter for palliative care; Z66 Do not resuscitate; K56.41 Fecal impaction; E86.0 Dehydration; E87.6 Hypokalemia; D64.9 Anemia, unspecified; S14.109S Unspecified injury at unspecified level of cervical spinal cord, sequela; W16.42XS Fall into unspecified water causing other injury, sequela; R50.9 Fever, unspecified; R01.1 Cardiac murmur, unspecified; I50.9 Heart failure, unspecified; Z93.50 Unspecified cystostomy status; F41.9 Anxiety disorder, unspecified; Z87.01 Personal history of pneumonia (recurrent); Z87.440 Personal history of urinary (tract) infections; Z88.5 Allergy status to narcotic agent; Z91.010 Allergy to peanuts; Z88.2 Allergy status to sulfonamides
CPT/HCPCS: 36415 ×3; 80048; 80053; 82272; 84484; 85025 ×2; 87040 ×2; 94150 ×9; 94640 ×3; A9270 ×23; J1650; J1956 ×2; J7030 ×5; 71045; 83880; J1940; J2543; J3370; J7050; J7620-GY

== ENCOUNTER 2019-02-17 13:22 | Inpatient (IN) | payer MEDICARE, MEDICAID ==
[2019-02-18] MEDS ORDERED: Albuterol/Ipratropium 3.0-0.5 MG/3 ML Neb Soln NEB PRN (16:38)
[2019-02-18] MEDS ORDERED: Hydrocortisone 2.5% Crm 30 GM Tube TOP PRN (16:45)
[2019-02-18] MEDS: Sodium Chloride 0.9% 10 ML Syringe FLUSH SCH ×3 (17:59→18:53)
[2019-02-18] MEDS: Piperacillin/Tazobactam 3.375 GM in Sodium Chloride 0.9% 50 ML IV SCH (18:01)
[2019-02-18] MEDS: Docusate Sodium 100 MG Cap PO SCH (18:50)
[2019-02-18] MEDS: Diazepam 5 MG Tab PO PRN (20:28)
[2019-02-18] MEDS: Budesonide 0.25 MG/2 ML Neb Susp INH SCH (20:32)
[2019-02-18] MEDS ORDERED: Docusate Sodium 100 MG Cap PO SCH (21:00)
[2019-02-18] MEDS ORDERED: Baclofen 10 MG Tab PO PRN (21:00)
[2019-02-18] MEDS: Fluticasone Propionate Nasal Spray 16 GM Bottle NASBOTH SCH (22:17)
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
[2019-02-19] MEDS: Sodium Chloride 0.9% 10 ML Syringe FLUSH SCH ×6 (01:30→18:07)
[2019-02-19] MEDS: Piperacillin/Tazobactam 3.375 GM in Sodium Chloride 0.9% 50 ML IV SCH ×3 (01:30→16:58)
[2019-02-19] MEDS: CRANBERRY 500 MG PO SCH (08:50)
[2019-02-19] MEDS: Diazepam 5 MG Tab PO SCH (08:55)
[2019-02-19] MEDS: Fluticasone Propionate Nasal Spray 16 GM Bottle NASBOTH SCH ×2 (08:55→20:51)
[2019-02-19] MEDS: predniSONE 20 MG Tab PO SCH (08:55)
[2019-02-19] MEDS: Budesonide 0.25 MG/2 ML Neb Susp INH SCH ×2 (08:55→20:51)
[2019-02-19] MEDS: Cholecalciferol (Vitamin D3) 1,000 Unit Tab PO SCH (08:55)
[2019-02-19] MEDS: Ascorbic Acid 500 MG Tab PO SCH (08:55)
[2019-02-19] MEDS: Tolterodine 4 MG Cap.ER PO SCH (08:55)
[2019-02-19] MEDS: Docusate Sodium 100 MG Cap PO SCH ×2 (08:55→18:10)
[2019-02-19] MEDS ORDERED: predniSONE 20 MG Tab PO SCH (09:00)
[2019-02-19] MEDS ORDERED: Bisacodyl 5 MG Tab PO SCH (09:00)
--- NOTE | 2019-02-19 12:50 | PN ---
DATE SEEN: 02/19/2019 SUBJECTIVE: Wei Rivas is a 53-year-old single male admitted to [facility]. Had a lengthy stay at [facility]. Presented with a troublesome pneumonia. Acute care stay at [facility], transferred. Was found to have an empyema, right chest tube. Discharged with plans for antibiotic therapy, Zosyn q.8 hours through March 17, 2019. Feeling better. Some mild discomfort. Chest tube removed yesterday. Suprapubic catheter in place. Has a baclofen pump in place. Timing, duration, refill under review. LABORATORY STUDIES: None indicated. OBJECTIVE: VITAL SIGNS: 80.8 kg, pulse 52, 36.3 degrees Fahrenheit, 107/70, 82 is the mean blood pressure, 16 is respirations, 94%. GENERAL: Cooperative, conversant. New riojas in place. ENT: Mouth and oropharynx clear. NECK: Benign. Thyroid small. CHEST: Decreased breath sounds throughout all lung flores. HEART: Distant heart sounds. ABDOMEN: Benign. SKIN: Chest tube site intact. ASSESSMENT: Complicated right-sided pneumonia. PLAN: Medications, care, and treatment appropriate. Incentive spirometer. BiPAP, sleep study under consideration. CPT vest discussed. /[id number] MACRINA/SMOOTH
[2019-02-19] MEDS: Acetaminophen 325 MG Tab PO PRN (14:20)
[2019-02-19] MEDS: Diazepam 5 MG Tab PO PRN ×2 (14:21→21:09)
[2019-02-19] MEDS: Mineral Oil/Petrolatum/Phenylephrine/Shark Liver Oil Oint 57 GM Tube RECTAL SCH (18:29)
[2019-02-20] MEDS: Piperacillin/Tazobactam 3.375 GM in Sodium Chloride 0.9% 50 ML IV SCH ×3 (00:34→16:42)
[2019-02-20] MEDS: Sodium Chloride 0.9% 10 ML Syringe FLUSH SCH ×6 (00:36→17:28)
[2019-02-20] MEDS: Docusate Sodium 100 MG Cap PO SCH ×2 (08:19→17:30)
[2019-02-20] MEDS: Ascorbic Acid 500 MG Tab PO SCH (08:19)
[2019-02-20] MEDS: Cholecalciferol (Vitamin D3) 1,000 Unit Tab PO SCH (08:19)
[2019-02-20] MEDS: predniSONE 20 MG Tab PO SCH (08:19)
[2019-02-20] MEDS: Tolterodine 4 MG Cap.ER PO SCH (08:19)
[2019-02-20] MEDS: CRANBERRY 500 MG PO SCH (08:20)
[2019-02-20] MEDS: Budesonide 0.25 MG/2 ML Neb Susp INH SCH ×2 (08:20→20:02)
[2019-02-20] MEDS: Fluticasone Propionate Nasal Spray 16 GM Bottle NASBOTH SCH ×2 (08:21→20:02)
[2019-02-20] MEDS: Diazepam 5 MG Tab PO SCH (08:25)
[2019-02-20] MEDS ORDERED: Polyethylene Glycol 3350 Powder 17 GM Packet PO PRN (08:51)
[2019-02-20] MEDS ORDERED: Mineral Oil/Petrolatum/Phenylephrine/Shark Liver Oil Oint 57 GM Tube RECTAL ONE (09:00)
[2019-02-20] MEDS ORDERED: BISACODYL 10 MG RECTAL ONE (09:00)
[2019-02-20] MEDS: Diazepam 5 MG Tab PO PRN ×2 (14:26→21:33)
[2019-02-21] MEDS: Piperacillin/Tazobactam 3.375 GM in Sodium Chloride 0.9% 50 ML IV SCH ×3 (01:00→16:54)
[2019-02-21] MEDS: Sodium Chloride 0.9% 10 ML Syringe FLUSH SCH ×6 (01:31→17:50)
[2019-02-21] MEDS: Fluticasone Propionate Nasal Spray 16 GM Bottle NASBOTH SCH ×2 (08:40→20:39)
[2019-02-21] MEDS: Docusate Sodium 100 MG Cap PO SCH ×2 (08:41→17:51)
[2019-02-21] MEDS: Tolterodine 4 MG Cap.ER PO SCH (08:41)
[2019-02-21] MEDS: CRANBERRY 500 MG PO SCH (08:41)
[2019-02-21] MEDS: Ascorbic Acid 500 MG Tab PO SCH (08:42)
[2019-02-21] MEDS: predniSONE 20 MG Tab PO SCH (08:42)
[2019-02-21] MEDS: Budesonide 0.25 MG/2 ML Neb Susp INH SCH ×2 (08:42→20:39)
[2019-02-21] MEDS: Cholecalciferol (Vitamin D3) 1,000 Unit Tab PO SCH (08:42)
[2019-02-21] MEDS: Diazepam 5 MG Tab PO SCH (08:47)
[2019-02-21] MEDS ORDERED: Bisacodyl 5 MG Tab PO SCH ×2 (09:00)
[2019-02-21] MEDS: Bisacodyl 5 MG Tab PO SCH (09:53)
[2019-02-21] MEDS: Acetaminophen 325 MG Tab PO PRN (14:30)
--- NOTE | 2019-02-21 16:35 | PN ---
DATE SEEN: 02/21/2019 SUBJECTIVE: Samson Rivas is a 53-year-old male, under long-term antibiotic surveillance. He had a complicated right-sided pneumonia, pleural effusion, removal of chest tube. A little unsettled day yesterday. Spoke to him on constipation, stool modification. LABORATORY STUDIES: Sedimentation rate, CRP, CBC, and panel 8 scheduled for tomorrow. Radiographs to be considered. X-ray to be performed tomorrow in followup. OBJECTIVE: VITAL SIGNS: 36.5, 123/82, O2 saturation 90% on room air, respirations 18. GENERAL: In good spirits. Soft spoken. CHEST: Decreased breath sounds, particularly on the right side. HEART: Distant heart sounds. ABDOMEN: Benign. EXTREMITIES: No extremity neuropathic findings. ASSESSMENT: Complicated pneumonia. PLAN: We will continue Zosyn, complementary care and well being. X-ray and lab to be performed upcoming. /[id number] MACRINA/SMOOTH
[2019-02-21] MEDS: Diazepam 5 MG Tab PO PRN (20:39)
[2019-02-22] MEDS: Piperacillin/Tazobactam 3.375 GM in Sodium Chloride 0.9% 50 ML IV SCH ×3 (00:33→17:40)
[2019-02-22] MEDS: Sodium Chloride 0.9% 10 ML Syringe FLUSH SCH ×8 (00:38→18:40)
[2019-02-22] MEDS ORDERED: Sodium Chloride 0.9% 250 ML IV SCH (00:45)
[2019-02-22] MEDS: Tolterodine 4 MG Cap.ER PO SCH (09:35)
[2019-02-22] MEDS: Acetaminophen 650 MG Tab.ER PO SCH ×2 (09:35→20:35)
[2019-02-22] MEDS: Ascorbic Acid 500 MG Tab PO SCH (09:35)
[2019-02-22] MEDS: CRANBERRY 500 MG PO SCH (09:35)
[2019-02-22] MEDS: Docusate Sodium 100 MG Cap PO SCH ×2 (09:35→18:20)
[2019-02-22] MEDS: Cholecalciferol (Vitamin D3) 1,000 Unit Tab PO SCH (09:35)
[2019-02-22] MEDS: Fluticasone Propionate Nasal Spray 16 GM Bottle NASBOTH SCH ×2 (09:36→20:33)
[2019-02-22] MEDS: Diazepam 5 MG Tab PO SCH (09:36)
[2019-02-22] MEDS: Budesonide 0.25 MG/2 ML Neb Susp INH SCH ×2 (11:48→20:34)
[2019-02-22] MEDS: Mineral Oil/Petrolatum/Phenylephrine/Shark Liver Oil Oint 57 GM Tube RECTAL SCH (11:49)
--- NOTE | 2019-02-22 12:02 | PN ---
DATE SEEN: 02/20/2019 SUBJECTIVE: Wei Rivas is a 53-year-old male with expected long- term stay on antibiotic treatment for pneumonia. Origin undetermined. He had a good night. We had a lengthy discussion about stools and management, would like MiraLAX added p.r.n. and increasing his docusate. Otherwise, feeling well. Laboratory tests requested by Mo in [place]. Inflammatory markers, CBC, electrolytes, and liver enzyme on 02/22/2019. Otherwise, doing well. OBJECTIVE: VITAL SIGNS: 36.5, 152/81, 91 on room air. GENERAL: Appears comfortable. Soft spoken. NECK: Benign. Thyroid small. CHEST: Clear in all lung flores. No adventitious sounds. HEART: No ectopy or murmur. ABDOMEN: Benign. Suprapubic catheter in place. Drain site, right chest wall, clear. ASSESSMENT: Suspected complicated pneumonia with empyema and effusion, quadriplegia with effects, chest tube intact. PLAN: Medications on board, timing appropriate care, conservative measures, all should go well. /[id number] /SMOOTH
--- NOTE | 2019-02-22 13:19 | PN ---
DATE SEEN: 02/22/2019 SUBJECTIVE: Wei Rivas is a 53-year-old, male, admitted for long- term care antibiotics. The patient is on Zosyn. He had a complicated pneumonia. Doing well. Stool intervention and timing appropriate. CPT vest under consideration. Right chest wall wound was inspected today, hardly an issue, healing promptly. MEDICATIONS: Reviewed and appropriate. LABORATORY STUDIES: On admission, today 02/22; white count 6200, hemoglobin 11.8, normal indices. Electrolytes satisfactory. Calcium 8.5, ALT 40, C- reactive protein 1.3, sedimentation rate 38. PHYSICAL EXAMINATION: VITAL SIGNS: 36.4, 158/82, 16, 95. GENERAL: Cooperative conversant. Quadriplegia present. Right upper extremity better than left lower extremity. NECK: Benign. Thyroid small. CHEST: Difficult, but clear lung sounds. Drain site, right chest wall intact. HEART: Normal. No ectopy or murmur. ABDOMEN: Benign. ASSESSMENT: Complicated pneumonia with pleural effusion. PLAN: Laboratory studies as directed by his providers in [place], continue Zosyn. No dressing required over the wound. /[id number] MACRINA/SMOOTH
--- NOTE | 2019-02-22 15:37 | CR ---
CHEST: INDICATION: Follow-up pneumonia. Two AP views and two lateral views of the chest were obtained 02-22-19 and compared with 02-08-19 revealing apparent resolution of what appeared to be a loculated pleural effusion on the right. Infiltrate in the right mid to lower lung field is somewhat diminished suggesting resolving pneumonia in that area but with continued infiltrate compatible with significant residual in the mid to lower lung field on the right. An appearance of pulmonary vascular congestion on the previous study-CHF has resolved. The heart remains enlarged in appearance. IMPRESSION: Significant improvement in the appearance of the chest as noted above. MTDD
[2019-02-22] MEDS: Diazepam 5 MG Tab PO PRN (18:19)
[2019-02-23] MEDS: Piperacillin/Tazobactam 3.375 GM in Sodium Chloride 0.9% 50 ML IV SCH ×3 (01:16→16:41)
[2019-02-23] MEDS: Diazepam 5 MG Tab PO PRN ×2 (02:43→18:13)
[2019-02-23] MEDS: Sodium Chloride 0.9% 10 ML Syringe FLUSH SCH ×6 (07:25→19:42)
[2019-02-23] MEDS: Tolterodine 4 MG Cap.ER PO SCH (08:54)
[2019-02-23] MEDS: CRANBERRY 500 MG PO SCH (08:54)
[2019-02-23] MEDS: Fluticasone Propionate Nasal Spray 16 GM Bottle NASBOTH SCH ×2 (08:54→21:17)
[2019-02-23] MEDS: Budesonide 0.25 MG/2 ML Neb Susp INH SCH ×2 (08:54→21:18)
[2019-02-23] MEDS: Acetaminophen 650 MG Tab.ER PO SCH ×2 (08:54→21:18)
[2019-02-23] MEDS: Diazepam 5 MG Tab PO SCH (08:54)
[2019-02-23] MEDS: Docusate Sodium 100 MG Cap PO SCH ×2 (08:54→18:14)
[2019-02-23] MEDS: Ascorbic Acid 500 MG Tab PO SCH (08:54)
[2019-02-23] MEDS: Bisacodyl 5 MG Tab PO SCH (08:56)
[2019-02-23] MEDS: Cholecalciferol (Vitamin D3) 1,000 Unit Tab PO SCH (08:57)
--- NOTE | 2019-02-23 14:28 | PN ---
DATE SEEN: 02/23/2019 SUBJECTIVE: Wei Rivas is a 53-year-old, male, admitted for swing bed. Antibiotic therapy through March 16, 2019 for complicated pneumonia and pleural effusion. No bugs were identified. Doing well. A little pre-occupation with stools. No recent stools. On suppository every other day and stool softeners every other day alternating. Feels his tummy is bit distended. Right chest wall wound was looked yesterday, doing well. MEDICATIONS: Reviewed and appropriate. OBJECTIVE: VITAL SIGNS: 36.4, 158/82, 91% on room air. GENERAL: Soft spoken. Voice was somewhat weak. NECK: Benign. CHEST: Clear all lung flores. HEART: No ectopy or murmur. ABDOMEN: Little bit distended. Surgical wound right chest tube healed. ASSESSMENT: 1. Pneumonia. 2. Quadriplegia. 3. Chest tube site intact. PLAN: We will encourage MiraLAX, complementary care, and well being. /[id number] /SMOOTH
[2019-02-24] MEDS: Sodium Chloride 0.9% 10 ML Syringe FLUSH SCH ×6 (00:19→18:16)
[2019-02-24] MEDS: Piperacillin/Tazobactam 3.375 GM in Sodium Chloride 0.9% 50 ML IV SCH ×3 (00:19→18:15)
[2019-02-24] MEDS: Diazepam 5 MG Tab PO PRN ×3 (00:22→21:36)
[2019-02-24] MEDS: Mineral Oil/Petrolatum/Phenylephrine/Shark Liver Oil Oint 57 GM Tube RECTAL SCH (08:04)
[2019-02-24] MEDS: Budesonide 0.25 MG/2 ML Neb Susp INH SCH ×2 (08:24→21:34)
[2019-02-24] MEDS: CRANBERRY 500 MG PO SCH (09:08)
[2019-02-24] MEDS: Tolterodine 4 MG Cap.ER PO SCH (09:08)
[2019-02-24] MEDS: Docusate Sodium 100 MG Cap PO SCH ×2 (09:08→18:18)
[2019-02-24] MEDS: Fluticasone Propionate Nasal Spray 16 GM Bottle NASBOTH SCH ×3 (09:08→21:59)
[2019-02-24] MEDS: Cholecalciferol (Vitamin D3) 1,000 Unit Tab PO SCH (09:09)
[2019-02-24] MEDS: Ascorbic Acid 500 MG Tab PO SCH (09:09)
[2019-02-24] MEDS: Acetaminophen 650 MG Tab.ER PO SCH ×2 (09:09→21:35)
[2019-02-24] MEDS: Diazepam 5 MG Tab PO SCH (09:38)
--- NOTE | 2019-02-24 13:31 | PN ---
DATE SEEN: 02/24/2019 SUBJECTIVE: Wei Rivas is a 53-year-old male, in swing bed. He had a complicated right-sided pneumonia. Radiographs today revealed nice improvement. The patient was shown the findings. Nice improvement in fluid and inflammatory changes in the right lower chest wall. Other laboratory studies, no consequences. Stool is a primary issue. Stool stimulants on board. Suppository provided only a moderate amount of mucusy discharge. Rectal exam did reveal no stool within reach. We will proceed with x-ray of his abdomen, KUB and upright, to look for issues and quantity of stool. Otherwise, doing well. OBJECTIVE: VITAL SIGNS: Stable. CONSTITUTIONAL: Soft spoken. NECK: Benign. CHEST: Clear in all lung flores. HEART: No ectopy or murmur. ABDOMEN: A bit rotund, but no palpable masses. PLAN: We will proceed with x-rays and intervention. MiraLAX to be given more routinely. /[id number] MACRINA/SMOOTH
--- NOTE | 2019-02-24 14:51 | CR ---
INDICATION: Check quantity of stool present in colon. ABDOMEN: Four images of the abdomen were obtained in supine projection and compared with CT preliminary image of 07/10/18. There is evidence of oral contrast throughout the colon up to the level of the descending colon, which appears to be somewhat distended. The remaining bowel loops not filled with contrast are also distended. It is difficult to exclude an obstructive process with this appearance, especially since there is no contrast in the pelvis. The possibility of a distal colonic obstructive process certainly cannot be excluded. However, this appearance is very similar to the previous CT felt dyeing machine tender view. No other organomegaly or mass lesions were identified. IMPRESSION: Distended bowel with oral contrast extending only to the level of the descending colon. This makes it difficult to exclude a mechanically obstructive process at the level of the distal descending colon - correlate clinically. Barium enema or colon examination may be warranted, depending upon clinical correlation. There does appear to be a moderate amount of stool; however, little if any stool is suggested in the area of the rectum and rectosigmoid, further raising question of a possible distal colonic obstructive process. These findings should be correlated clinically. PARESHD
[2019-02-25] MEDS: Sodium Chloride 0.9% 10 ML Syringe FLUSH SCH ×6 (00:39→18:09)
[2019-02-25] MEDS: Piperacillin/Tazobactam 3.375 GM in Sodium Chloride 0.9% 50 ML IV SCH ×3 (00:40→18:08)
[2019-02-25] MEDS: Budesonide 0.25 MG/2 ML Neb Susp INH SCH ×2 (09:18→21:17)
[2019-02-25] MEDS: Docusate Sodium 100 MG Cap PO SCH ×2 (09:18→18:14)
[2019-02-25] MEDS: Fluticasone Propionate Nasal Spray 16 GM Bottle NASBOTH SCH ×2 (09:18→21:20)
[2019-02-25] MEDS: Tolterodine 4 MG Cap.ER PO SCH (09:18)
[2019-02-25] MEDS: CRANBERRY 500 MG PO SCH (09:18)
[2019-02-25] MEDS: Bisacodyl 5 MG Tab PO SCH (09:18)
[2019-02-25] MEDS: Diazepam 5 MG Tab PO SCH (09:19)
[2019-02-25] MEDS: Cholecalciferol (Vitamin D3) 1,000 Unit Tab PO SCH (09:19)
[2019-02-25] MEDS: Ascorbic Acid 500 MG Tab PO SCH (09:19)
[2019-02-25] MEDS: Acetaminophen 650 MG Tab.ER PO SCH ×2 (09:19→21:21)
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
--- NOTE | 2019-02-25 11:45 | PN ---
DATE SEEN: 02/25/2019 SUBJECTIVE: Wei Rivas is a 53-year-old male, in swing bed until March 16, 2019. Antibiotics on board for pleural effusion and pneumonia. Specific bug was not captured. Reluctance stools, bowel program done, unsuccessful, no stooling. Abdomen plain film revealed a lot of retained barium in the colon; likely origin of reluctant stools and abdominal distention. I spoke with Dr. Baxter, who agrees to see him in consultation, and is medically necessary. Retained stool creates a significant health problem long-term. Otherwise doing well. Followup x-ray revealed interval resolution. Laboratory studies done from admission unremarkable and noted. OBJECTIVE: VITAL SIGNS: 36.6, 51, 141/86, 98% on no oxygen. GENERAL: Soft- spoken. MOUTH AND OROPHARYNX: Clear. NECK: Benign. Thyroid small. CHEST: Clear in all lung flores, decreased breath sounds right lower lobe. HEART: No ectopy or murmur. ABDOMEN: Rotund. ASSESSMENT: 1. Pneumonia. 2. Pleural effusion. 3. Chest tube with removal. 4. Complicated quadriplegia. 5. Bowel impairment. PLAN: Consultation with Dr. Tae Baxter upcoming and planned. /[id number] /SMOOTH
[2019-02-25] MEDS: Diazepam 5 MG Tab PO PRN ×2 (13:04→21:30)
[2019-02-25] MEDS: Simethicone 80 MG Tab.Chew PO PRN ×2 (13:04→21:30)
[2019-02-25] MEDS ORDERED: Docusate Sodium 100 MG Cap PO ONE (19:04)
[2019-02-25] MEDS: Lubiprostone 24 MCG Cap PO SCH (19:22)
[2019-02-26] MEDS ORDERED: Sodium Chloride 0.9% 250 ML IV SCH (01:29)
[2019-02-26] MEDS: Piperacillin/Tazobactam 3.375 GM in Sodium Chloride 0.9% 50 ML IV SCH ×3 (01:29→17:10)
[2019-02-26] MEDS: Sodium Chloride 0.9% 10 ML Syringe FLUSH SCH ×6 (01:29→17:43)
[2019-02-26] MEDS: Docusate Sodium 100 MG Cap PO SCH ×2 (08:07→18:41)
--- NOTE | 2019-02-26 08:27 | PCM.SURGPN ---
- General Info Date of Service: 02/26/19 - Review of Systems Genitourinary: Reports: Other (Has not had a bowel movement but the nurse did feel stool in the vault this am. ) - Patient Data Vitals - Most Recent: Last Vital Signs Temp 97.8 F 02/26/19 08:00 Pulse 51 L 02/26/19 08:00 Resp 16 02/26/19 08:00 BP 148/94 H 02/26/19 08:00 Pulse Ox 94 L 02/26/19 08:00 Weight - Most Recent: 80.824 kg I&O - Last 24 Hours: Intake & Output 02/25/19 02/26/19 02/26/19 22:59 06:59 14:59 Intake Total 80 Output Total 1450 1075 Balance -1450 -995 Med Orders - Current: Current Medications Acetaminophen (Tylenol Arthritis Pain) 1,300 mg PO BID [facility] Last Admin: 02/25/19 21:21 Dose: 1,300 mg Albuterol/Ipratropium (Duoneb 3.0-0.5 Mg/3 Ml) 3 ml NEB QID PRN PRN Reason: BRONCHOSPASM Ascorbic Acid (Vitamin C) 500 mg PO DAILY [facility] Last Admin: 02/25/19 09:19 Dose: 500 mg Baclofen (Lioresal) 20 mg PO TID PRN PRN Reason: WITHDRAWL SYMPTOMS Bisacodyl (Dulcolax) 10 mg RECTAL MOWEFR [facility] Last Admin: 02/26/19 07:57 Dose: 10 mg Bisacodyl (Dulcolax) 10 mg PO SuTuTh@0900 [facility] Last Admin: 02/25/19 09:18 Dose: 10 mg Budesonide (Pulmicort) 0.25 mg INH BID [facility] Last Admin: 02/25/19 21:17 Dose: 0.25 mg Cetirizine HCl (Zyrtec) 10 mg PO DAILY PRN PRN Reason: Allergies Cholecalciferol (Vitamin D3) 2,000 units PO DAILY [facility] Last Admin: 02/25/19 09:19 Dose: 2,000 units Cranberry (Cranberry) 500 mg PO DAILY [facility] Last Admin: 02/25/19 09:18 Dose: 500 mg Diazepam (Valium.) 5 mg PO DAILY [facility] Last Admin: 02/25/19 09:19 Dose: 5 mg Diazepam (Valium.) 5 mg PO Q4H PRN PRN Reason: MUSCLE SPASM/PAIN Last Admin: 02/25/19 21:30 Dose: 5 mg Docusate Sodium (Colace) 100 mg PO BID@0800,1800 [facility] Last Admin: 02/26/19 08:07 Dose: 100 mg Fluticasone Propionate (Flonase) 0 gm NASBOTH BID [facility] Last Admin: 02/25/19 21:20 Dose: 1 spray Heparin Sodium (Porcine) (Heparin Lock Flush 100 Units/Ml) 300 units FLUSH Q8H [facility] Last Admin: 02/26/19 02:17 Dose: 300 units Hydrocortisone (Hydrocortisone 2.5% Crm) 0.5 gm TOP BID PRN PRN Reason: Itching Piperacillin Sod/Tazobactam (Sod 3.375 gm/ Sodium Chloride) 50 mls @ 100 mls/ hr IV Q8H [facility] Last Admin: 02/26/19 08:13 Dose: 100 mls/hr Sodium Chloride (Normal Saline) 250 mls @ 100 mls/hr IV ASDIRECTED [facility] Last Admin: 02/26/19 01:22 Dose: 100 mls/hr Lubiprostone (Amitiza) 24 mcg PO BIDMEALS [facility] Last Admin: 02/25/19 19:22 Dose: 24 mcg Melatonin (Melatonin) 10 mg PO BEDTIME PRN PRN Reason: INSOMNIA Last Admin: 02/25/19 21:23 Dose: 10 mg Mineral Oil (Mineral Oil) 15 ml PO DAILY [facility] Last Admin: 02/26/19 08:24 Dose: 15 ml (Baclofen Pump 1 Ea) (*Ptom) 1 ea ITHECAL ASDIRECTED [facility] Phenyleph/Shark Oil/Min Oil/Petrol (Preparation H Oint) 0 gm RECTAL MoWeFr [facility] Last Admin: 02/24/19 08:04 Dose: 1 applic Polyethylene Glycol (Miralax) 17 gm PO BEDTIME PRN PRN Reason: Constipation Last Admin: 02/23/19 08:55 Dose: 17 gm Simethicone (Simethicone) 80 mg PO QID PRN PRN Reason: FLATULENCE Last Admin: 02/25/19 21:30 Dose: 80 mg Sodium Chloride (Saline Flush) 10 ml FLUSH Q8H [facility] Last Admin: 02/26/19 08:14 Dose: 10 ml Sodium Chloride (Saline Flush) 10 ml FLUSH Q8H [facility] Last Admin: 02/26/19 02:22 Dose: 10 ml Tolterodine Tartrate (Detrol La 24 Hr) 4 mg PO DAILY [facility] Last Admin: 02/25/19 09:18 Dose: 4 mg Discontinued Medications Acetaminophen (Tylenol) 650 mg PO Q4H PRN PRN Reason: Pain Last Admin: 02/21/19 14:30 Dose: 650 mg Bisacodyl (Dulcolax) 10 mg PO Q48H [facility] Last Admin: 02/19/19 08:55 Dose: 10 mg Bisacodyl (Dulcolax) 10 mg RECTAL ONETIME ONE Stop: 02/20/19 09:01 Last Admin: 02/20/19 08:05 Dose: 10 mg Bisacodyl (Dulcolax) 10 mg PO SuTuTh [facility] Bisacodyl (Dulcolax) 20 mg PO SuTuTh@0900 [facility] Last Admin: 02/21/19 09:49 Dose: Not Given Docusate Sodium (Colace) 100 mg PO BID [facility] Docusate Sodium (Colace) 100 mg PO ONETIME ONE Stop: 02/25/19 19:05 Last Admin: 02/25/19 19:23 Dose: 100 mg Sodium Chloride (Normal Saline) 250 mls @ 0 mls/hr IV ASDIRECTED [facility] Stop: 02/26/19 00:35 Phenyleph/Shark Oil/Min Oil/Petrol (Preparation H Oint) 0 gm RECTAL 02/20/19 ONE Stop: 02/20/19 09:01 Last Admin: 02/20/19 10:37 Dose: 1 applic Prednisone (Prednisone) 40 mg PO DAILY [facility] Prednisone (Prednisone) 20 mg PO DAILY [facility] Stop: 02/21/19 23:59 Last Admin: 02/21/19 08:42 Dose: 20 mg - Exam General: Alert, Oriented, Cooperative Lungs: Clear to Auscultation, Normal Respiratory Effort Cardiovascular: Regular Rate, Regular Rhythm GI/Abdominal Exam: Normal Bowel Sounds, Soft, Non-Tender - Problem List & Annotations (1) Constipation SNOMED Code(s): 06579472 Code(s): K59.00 - CONSTIPATION, UNSPECIFIED Status: Acute Current Visit: Yes Qualifiers: Constipation type: drug induced constipation Qualified Code(s): K59.03 - Drug induced constipation - Problem List Review Problem List Initiated/Reviewed/Updated: Yes - My Orders Last 24 Hours: Active Orders 24 hr Category Date Time Status Notify Provider Consults [RC] ASDIRECTED Care 02/25/19 09:10 Active Consult to Physician [CONS] Routine Cons 02/25/19 09:09 Ordered Chest wo Cont [CT] Routine Exams 03/01/19 08:00 Ordered Lubiprostone [Amitiza] Med 02/25/19 18:00 Active 24 mcg PO BIDMEALS Mineral Oil Med 02/25/19 11:30 Active 15 ml PO DAILY Sodium Chloride 0.9% [Normal Saline] 250 ml Med 02/26/19 01:29 Active IV ASDIRECTED Medication Orders Acetaminophen (Tylenol Arthritis Pain) 1,300 mg PO BID [facility] Last Admin: 02/25/19 21:21 Dose: 1,300 mg Admin: 02/25/19 09:19 Dose: 1,300 mg Admin: 02/24/19 21:35 Dose: 1,300 mg Admin: 02/24/19 09:09 Dose: 1,300 mg Admin: 02/23/19 21:18 Dose: 1,300 mg Admin: 02/23/19 08:54 Dose: 1,300 mg Admin: 02/22/19 20:35 Dose: 1,300 mg Admin: 02/22/19 09:35 Dose: 1,300 mg Albuterol/Ipratropium (Duoneb 3.0-0.5 Mg/3 Ml) 3 ml NEB QID PRN PRN Reason: BRONCHOSPASM Ascorbic Acid (Vitamin C) 500 mg PO DAILY [facility] Last Admin: 02/25/19 09:19 Dose: 500 mg Admin: 02/24/19 09:09 Dose: 500 mg Admin: 02/23/19 08:54 Dose: 500 mg Admin: 02/22/19 09:35 Dose: 500 mg Admin: 02/21/19 08:42 Dose: 500 mg Admin: 02/20/19 08:19 Dose: 500 mg Admin: 02/19/19 08:55 Dose: 500 mg Baclofen (Lioresal) 20 mg PO TID PRN PRN Reason: WITHDRAWL SYMPTOMS Bisacodyl (Dulcolax) 10 mg RECTAL MOWEFR [facility] Last Admin: 02/26/19 07:57 Dose: 10 mg Admin: 02/24/19 08:03 Dose: 10 mg Admin: 02/24/19 00:13 Dose: 10 mg Admin: 02/22/19 08:34 Dose: 10 mg Bisacodyl (Dulcolax) 10 mg PO SuTuTh@0900 [facility] Last Admin: 02/25/19 09:18 Dose: 10 mg Admin: 02/23/19 08:56 Dose: 10 mg Admin: 02/21/19 09:53 Dose: 10 mg Budesonide (Pulmicort) 0.25 mg INH BID [facility] Last Admin: 02/25/19 21:17 Dose: 0.25 mg Admin: 02/25/19 09:18 Dose: 0.25 mg Admin: 02/24/19 21:34 Dose: 0.25 mg Admin: 02/24/19 08:24 Dose: 0.25 mg Admin: 02/23/19 21:18 Dose: 0.25 mg Admin: 02/23/19 08:54 Dose: 0.25 mg Admin: 02/22/19 20:34 Dose: 0.25 mg Admin: 02/22/19 11:48 Dose: 0.25 mg Admin: 02/21/19 20:39 Dose: 0.25 mg Admin: 02/21/19 08:42 Dose: 0.25 mg Admin: 02/20/19 20:02 Dose: 0.25 mg Admin: 02/20/19 08:20 Dose: 0.25 mg Admin: 02/19/19 20:51 Dose: 0.25 mg Admin: 02/19/19 08:55 Dose: 0.25 mg Admin: 02/18/19 20:32 Dose: 0.25 mg Cetirizine HCl (Zyrtec) 10 mg PO DAILY PRN PRN Reason: Allergies Cholecalciferol (Vitamin D3) 2,000 units PO DAILY [facility] Last Admin: 02/25/19 09:19 Dose: 2,000 units Admin: 02/24/19 09:09 Dose: 2,000 units Admin: 02/23/19 08:57 Dose: 2,000 units Admin: 02/22/19 09:35 Dose: 2,000 units Admin: 02/21/19 08:42 Dose: 2,000 units Admin: 02/20/19 08:19 Dose: 2,000 units Admin: 02/19/19 08:55 Dose: 2,000 units Cranberry (Cranberry) 500 mg PO DAILY [facility] Last Admin: 02/25/19 09:18 Dose: 500 mg Admin: 02/24/19 09:08 Dose: 500 mg Admin: 02/23/19 08:54 Dose: 500 mg Admin: 02/22/19 09:35 Dose: 500 mg Admin: 02/21/19 08:41 Dose: 500 mg Admin: 02/20/19 08:20 Dose: 500 mg Admin: 02/19/19 08:50 Dose: Not Given Diazepam (Valium.) 5 mg PO DAILY [facility] Last Admin: 02/25/19 09:19 Dose: 5 mg Admin: 02/24/19 09:38 Dose: 5 mg Admin: 02/23/19 08:54 Dose: 5 mg Admin: 02/22/19 09:36 Dose: 5 mg Admin: 02/21/19 08:47 Dose: 5 mg Admin: 02/20/19 08:25 Dose: 5 mg Admin: 02/19/19 08:55 Dose: 5 mg Diazepam (Valium.) 5 mg PO Q4H PRN PRN Reason: MUSCLE SPASM/PAIN Last Admin: 02/25/19 21:30 Dose: 5 mg Admin: 02/25/19 13:04 Dose: 5 mg Admin: 02/24/19 21:36 Dose: 5 mg Admin: 02/24/19 15:27 Dose: 5 mg Admin: 02/24/19 00:22 Dose: 5 mg Admin: 02/23/19 18:13 Dose: 5 mg Admin: 02/23/19 02:43 Dose: 5 mg Admin: 02/22/19 18:19 Dose: 5 mg Admin: 02/21/19 20:39 Dose: 5 mg Admin: 02/20/19 21:33 Dose: 5 mg Admin: 02/20/19 14:26 Dose: 5 mg Admin: 02/19/19 21:09 Dose: 5 mg Admin: 02/19/19 14:21 Dose: 5 mg Admin: 02/18/19 20:28 Dose: 5 mg Docusate Sodium (Colace) 100 mg PO BID@0800,1800 [facility] Last Admin: 02/26/19 08:07 Dose: 100 mg Admin: 02/25/19 18:14 Dose: 100 mg Admin: 02/25/19 09:18 Dose: 100 mg Admin: 02/24/19 18:18 Dose: 100 mg Admin: 02/24/19 09:08 Dose: 100 mg Admin: 02/23/19 18:14 Dose: 100 mg Admin: 02/23/19 08:54 Dose: 100 mg Admin: 02/22/19 18:20 Dose: 100 mg Admin: 02/22/19 09:35 Dose: 100 mg Admin: 02/21/19 17:51 Dose: 100 mg Admin: 02/21/19 08:41 Dose: 100 mg Admin: 02/20/19 17:30 Dose: 100 mg Admin: 02/20/19 08:19 Dose: 100 mg Admin: 02/19/19 18:10 Dose: 100 mg Admin: 02/19/19 08:55 Dose: 100 mg Admin: 02/18/19 18:50 Dose: 100 mg Fluticasone Propionate (Flonase) 0 gm NASBOTH BID [facility] Last Admin: 02/25/19 21:20 Dose: 1 spray Admin: 02/25/19 09:18 Dose: 1 spray Admin: 02/24/19 21:59 Dose: Not Given Admin: 02/24/19 09:08 Dose: 1 spray Admin: 02/23/19 21:17 Dose: 1 spray Admin: 02/23/19 08:54 Dose: 1 spray Admin: 02/22/19 20:33 Dose: 1 spray Admin: 02/22/19 09:36 Dose: 1 spray Admin: 02/21/19 20:39 Dose: 1 spray Admin: 02/21/19 08:40 Dose: Not Given Admin: 02/20/19 20:02 Dose: 1 spray Admin: 02/20/19 08:21 Dose: Not Given Admin: 02/19/19 20:51 Dose: Not Given Admin: 02/19/19 08:55 Dose: 1 spray Admin: 02/18/19 22:17 Dose: Not Given Heparin Sodium (Porcine) (Heparin Lock Flush 100 Units/Ml) 300 units FLUSH Q8H [facility] Last Admin: 02/26/19 02:17 Dose: 300 units Admin: 02/25/19 18:12 Dose: 300 units Admin: 02/25/19 09:20 Dose: 300 units Admin: 02/25/19 01:13 Dose: 300 units Admin: 02/24/19 18:17 Dose: 300 units Admin: 02/24/19 09:15 Dose: 300 units Admin: 02/24/19 00:53 Dose: 300 units Admin: 02/23/19 17:38 Dose: 300 units Admin: 02/23/19 09:44 Dose: 300 units Admin: 02/23/19 01:24 Dose: 300 units Admin: 02/22/19 18:40 Dose: 300 units Admin: 02/22/19 09:30 Dose: 300 units Admin: 02/22/19 06:30 Dose: 300 units Admin: 02/22/19 00:47 Dose: 300 units Admin: 02/21/19 17:50 Dose: 300 units Admin: 02/21/19 09:24 Dose: 300 units Admin: 02/21/19 01:32 Dose: 300 units Admin: 02/20/19 17:28 Dose: 300 units Admin: 02/20/19 09:16 Dose: 300 units Admin: 02/20/19 00:36 Dose: 300 units Admin: 02/19/19 18:09 Dose: 300 units Admin: 02/19/19 10:51 Dose: 300 units Admin: 02/19/19 02:02 Dose: 300 units Admin: 02/18/19 18:50 Dose: 300 units Hydrocortisone (Hydrocortisone 2.5% Crm) 0.5 gm TOP BID PRN PRN Reason: Itching Piperacillin Sod/Tazobactam (Sod 3.375 gm/ Sodium Chloride) 50 mls @ 100 mls/ hr IV Q8H [facility] Last Admin: 02/26/19 08:13 Dose: 100 mls/hr Admin: 02/26/19 01:29 Dose: 100 mls/hr Admin: 02/25/19 18:08 Dose: 100 mls/hr Admin: 02/25/19 09:10 Dose: 100 mls/hr Admin: 02/25/19 00:40 Dose: 100 mls/hr Admin: 02/24/19 18:15 Dose: 100 mls/hr Admin: 02/24/19 08:37 Dose: 100 mls/hr Admin: 02/24/19 00:19 Dose: 100 mls/hr Admin: 02/23/19 16:41 Dose: 100 mls/hr Admin: 02/23/19 08:45 Dose: 100 mls/hr Admin: 02/23/19 01:16 Dose: 100 mls/hr Admin: 02/22/19 17:40 Dose: 100 mls/hr Admin: 02/22/19 08:40 Dose: 100 mls/hr Admin: 02/22/19 00:33 Dose: 100 mls/hr Admin: 02/21/19 16:54 Dose: 100 mls/hr Admin: 02/21/19 08:36 Dose: 100 mls/hr Admin: 02/21/19 01:00 Dose: 100 mls/hr Admin: 02/20/19 16:42 Dose: 100 mls/hr Admin: 02/20/19 08:16 Dose: 100 mls/hr Admin: 02/20/19 00:34 Dose: 100 mls/hr Admin: 02/19/19 16:58 Dose: 100 mls/hr Admin: 02/19/19 09:46 Dose: 100 mls/hr Admin: 02/19/19 01:30 Dose: 100 mls/hr Admin: 02/18/19 18:01 Dose: 100 mls/hr Sodium Chloride (Normal Saline) 250 mls @ 100 mls/hr IV ASDIRECTED [facility] Last Admin: 02/26/19 01:22 Dose: 100 mls/hr Lubiprostone (Amitiza) 24 mcg PO BIDMEALS [facility] Last Admin: 02/25/19 19:22 Dose: 24 mcg Melatonin (Melatonin) 10 mg PO BEDTIME PRN PRN Reason: INSOMNIA Last Admin: 02/25/19 21:23 Dose: 10 mg Admin: 02/24/19 22:04 Dose: 10 mg Admin: 02/22/19 20:40 Dose: 10 mg Admin: 02/21/19 21:27 Dose: 10 mg Admin: 02/20/19 21:30 Dose: 10 mg Admin: 02/19/19 21:09 Dose: 10 mg Admin: 02/18/19 20:28 Dose: 10 mg Mineral Oil (Mineral Oil) 15 ml PO DAILY [facility] Last Admin: 02/26/19 08:24 Dose: 15 ml Admin: 02/25/19 12:59 Dose: 15 ml (Baclofen Pump 1 Ea) (*Ptom) 1 ea ITHECAL ASDIRECTED [facility] Phenyleph/Shark Oil/Min Oil/Petrol (Preparation H Oint) 0 gm RECTAL MoWeFr [facility] Last Admin: 02/24/19 08:04 Dose: 1 applic Admin: 02/22/19 11:49 Dose: 1 applic Admin: 02/19/19 18:29 Dose: Polyethylene Glycol (Miralax) 17 gm PO BEDTIME PRN PRN Reason: Constipation Last Admin: 02/23/19 08:55 Dose: 17 gm Simethicone (Simethicone) 80 mg PO QID PRN PRN Reason: FLATULENCE Last Admin: 02/25/19 21:30 Dose: 80 mg Admin: 02/25/19 13:04 Dose: 80 mg Sodium Chloride (Saline Flush) 10 ml FLUSH Q8H [facility] Last Admin: 02/26/19 08:14 Dose: 10 ml Admin: 02/26/19 01:29 Dose: Admin: 02/25/19 18:07 Dose: 10 ml Admin: 02/25/19 09:09 Dose: 10 ml Admin: 02/25/19 00:39 Dose: 10 ml Admin: 02/24/19 18:13 Dose: 10 ml Admin: 02/24/19 08:37 Dose: 10 ml Admin: 02/24/19 00:19 Dose: 10 ml Admin: 02/23/19 16:39 Dose: 10 ml Admin: 02/23/19 08:46 Dose: 10 ml Admin: 02/23/19 07:25 Dose: Admin: 02/22/19 17:40 Dose: 10 ml Admin: 02/22/19 09:30 Dose: 10 ml Admin: 02/22/19 08:43 Dose: 10 ml Admin: 02/22/19 00:38 Dose: 10 ml Admin: 02/21/19 16:54 Dose: 10 ml Admin: 02/21/19 08:35 Dose: 10 ml Admin: 02/21/19 05:49 Dose: 10 ml Admin: 02/20/19 16:41 Dose: 10 ml Admin: 02/20/19 08:15 Dose: 10 ml Admin: 02/20/19 00:36 Dose: 10 ml Admin: 02/19/19 16:58 Dose: 10 ml Admin: 02/19/19 09:46 Dose: 10 ml Admin: 02/19/19 01:30 Dose: 10 ml Admin: 02/18/19 18:53 Dose: 10 ml Admin: 02/18/19 18:05 Dose: 10 ml Sodium Chloride (Saline Flush) 10 ml FLUSH Q8H [facility] Last Admin: 02/26/19 02:22 Dose: 10 ml Admin: 02/25/19 18:09 Dose: 10 ml Admin: 02/25/19 09:20 Dose: 10 ml Admin: 02/25/19 01:13 Dose: 10 ml Admin: 02/24/19 18:16 Dose: 10 ml Admin: 02/24/19 09:34 Dose: 10 ml Admin: 02/24/19 00:52 Dose: 10 ml Admin: 02/23/19 19:42 Dose: Admin: 02/23/19 09:43 Dose: 10 ml Admin: 02/23/19 07:26 Dose: Admin: 02/22/19 18:40 Dose: 10 ml Admin: 02/22/19 09:36 Dose: Admin: 02/22/19 06:31 Dose: 10 ml Admin: 02/22/19 00:47 Dose: 10 ml Admin: 02/21/19 17:50 Dose: 10 ml Admin: 02/21/19 09:24 Dose: 10 ml Admin: 02/21/19 01:31 Dose: 10 ml Admin: 02/20/19 17:28 Dose: 10 ml Admin: 02/20/19 09:16 Dose: 10 ml Admin: 02/20/19 07:53 Dose: Not Given Admin: 02/19/19 18:07 Dose: 10 ml Admin: 02/19/19 10:51 Dose: 10 ml Admin: 02/19/19 02:02 Dose: 10 ml Admin: 02/18/19 17:59 Dose: 10 ml Tolterodine Tartrate (Detrol La 24 Hr) 4 mg PO DAILY [facility] Last Admin: 02/25/19 09:18 Dose: 4 mg Admin: 02/24/19 09:08 Dose: 4 mg Admin: 02/23/19 08:54 Dose: 4 mg Admin: 02/22/19 09:35 Dose: 4 mg Admin: 02/21/19 08:41 Dose: 4 mg Admin: 02/20/19 08:19 Dose: 4 mg Admin: 02/19/19 08:55 Dose: 4 mg - Assessment Assessment (Free Text/Narrative):: stable exam - Plan Plan (Free Text/Narrative):: no further recommendations at this time.
[2019-02-26] MEDS: Lubiprostone 24 MCG Cap PO SCH ×2 (09:10→18:40)
[2019-02-26] MEDS: Fluticasone Propionate Nasal Spray 16 GM Bottle NASBOTH SCH ×2 (09:16→21:23)
[2019-02-26] MEDS: CRANBERRY 500 MG PO SCH (10:29)
[2019-02-26] MEDS: Diazepam 5 MG Tab PO SCH (10:32)
[2019-02-26] MEDS: Tolterodine 4 MG Cap.ER PO SCH (10:33)
[2019-02-26] MEDS: Acetaminophen 650 MG Tab.ER PO SCH ×2 (10:33→21:23)
[2019-02-26] MEDS: Ascorbic Acid 500 MG Tab PO SCH (10:34)
[2019-02-26] MEDS: Cholecalciferol (Vitamin D3) 1,000 Unit Tab PO SCH (10:35)
[2019-02-26] MEDS: Mineral Oil/Petrolatum/Phenylephrine/Shark Liver Oil Oint 57 GM Tube RECTAL SCH (10:39)
[2019-02-26] MEDS: Budesonide 0.25 MG/2 ML Neb Susp INH SCH ×2 (12:02→21:24)
[2019-02-26] MEDS: Cetirizine 10 MG Tab PO PRN (16:25)
[2019-02-26] MEDS: Diazepam 5 MG Tab PO PRN ×2 (16:25→21:29)
[2019-02-26] MEDS: Simethicone 80 MG Tab.Chew PO PRN (21:29)
[2019-02-27] MEDS: Piperacillin/Tazobactam 3.375 GM in Sodium Chloride 0.9% 50 ML IV SCH ×3 (00:39→16:59)
[2019-02-27] MEDS: Sodium Chloride 0.9% 10 ML Syringe FLUSH SCH ×7 (01:33→17:43)
[2019-02-27] MEDS: Lubiprostone 24 MCG Cap PO SCH ×2 (08:53→17:48)
[2019-02-27] MEDS: Tolterodine 4 MG Cap.ER PO SCH (08:53)
[2019-02-27] MEDS: Cholecalciferol (Vitamin D3) 1,000 Unit Tab PO SCH (08:53)
[2019-02-27] MEDS: Acetaminophen 650 MG Tab.ER PO SCH ×2 (08:53→21:11)
[2019-02-27] MEDS: Ascorbic Acid 500 MG Tab PO SCH (08:53)
[2019-02-27] MEDS: Docusate Sodium 100 MG Cap PO SCH ×2 (08:53→17:48)
[2019-02-27] MEDS: Fluticasone Propionate Nasal Spray 16 GM Bottle NASBOTH SCH ×2 (08:58→21:11)
[2019-02-27] MEDS: CRANBERRY 500 MG PO SCH (08:59)
[2019-02-27] MEDS: Simethicone 80 MG Tab.Chew PO PRN ×3 (09:10→21:10)
[2019-02-27] MEDS: Diazepam 5 MG Tab PO SCH (09:11)
[2019-02-27] MEDS: Budesonide 0.25 MG/2 ML Neb Susp INH SCH ×2 (09:15→21:11)
[2019-02-27] MEDS: Diazepam 5 MG Tab PO PRN ×2 (13:46→21:10)
[2019-02-28] MEDS: Sodium Chloride 0.9% 10 ML Syringe FLUSH SCH ×6 (01:03→17:51)
[2019-02-28] MEDS: Piperacillin/Tazobactam 3.375 GM in Sodium Chloride 0.9% 50 ML IV SCH ×3 (01:03→17:17)
[2019-02-28] MEDS: Lubiprostone 24 MCG Cap PO SCH ×2 (08:25→17:38)
[2019-02-28] MEDS: Docusate Sodium 100 MG Cap PO SCH ×2 (08:25→17:38)
[2019-02-28] MEDS: CRANBERRY 500 MG PO SCH (08:26)
[2019-02-28] MEDS: Tolterodine 4 MG Cap.ER PO SCH (08:26)
[2019-02-28] MEDS: Fluticasone Propionate Nasal Spray 16 GM Bottle NASBOTH SCH ×2 (08:28→20:46)
[2019-02-28] MEDS: Bisacodyl 5 MG Tab PO SCH (08:28)
[2019-02-28] MEDS: Acetaminophen 650 MG Tab.ER PO SCH ×2 (08:29→20:57)
[2019-02-28] MEDS: Budesonide 0.25 MG/2 ML Neb Susp INH SCH ×2 (08:29→20:49)
[2019-02-28] MEDS: Cholecalciferol (Vitamin D3) 1,000 Unit Tab PO SCH (08:30)
[2019-02-28] MEDS: Ascorbic Acid 500 MG Tab PO SCH (08:30)
[2019-02-28] MEDS: Diazepam 5 MG Tab PO SCH (08:34)
[2019-02-28] MEDS: Simethicone 80 MG Tab.Chew PO PRN ×3 (09:25→21:29)
[2019-02-28] MEDS: Diazepam 5 MG Tab PO PRN ×2 (17:10→21:30)
[2019-03-01] MEDS: Piperacillin/Tazobactam 3.375 GM in Sodium Chloride 0.9% 50 ML IV SCH ×3 (00:46→16:42)
[2019-03-01] MEDS: Sodium Chloride 0.9% 10 ML Syringe FLUSH SCH ×6 (00:46→17:13)
[2019-03-01] MEDS: Budesonide 0.25 MG/2 ML Neb Susp INH SCH ×2 (08:36→20:51)
[2019-03-01] MEDS: Lubiprostone 24 MCG Cap PO SCH ×2 (09:24→17:16)
[2019-03-01] MEDS: Docusate Sodium 100 MG Cap PO SCH ×2 (09:25→17:16)
[2019-03-01] MEDS: Acetaminophen 650 MG Tab.ER PO SCH ×2 (09:25→20:52)
[2019-03-01] MEDS: Fluticasone Propionate Nasal Spray 16 GM Bottle NASBOTH SCH ×2 (09:25→20:51)
[2019-03-01] MEDS: Tolterodine 4 MG Cap.ER PO SCH (09:25)
[2019-03-01] MEDS: Ascorbic Acid 500 MG Tab PO SCH (09:25)
[2019-03-01] MEDS: Cholecalciferol (Vitamin D3) 1,000 Unit Tab PO SCH (09:25)
[2019-03-01] MEDS: CRANBERRY 500 MG PO SCH (09:26)
[2019-03-01] MEDS: Mineral Oil/Petrolatum/Phenylephrine/Shark Liver Oil Oint 57 GM Tube RECTAL SCH (09:26)
[2019-03-01] MEDS: Diazepam 5 MG Tab PO SCH (09:28)
[2019-03-01] MEDS: Diazepam 5 MG Tab PO PRN ×2 (16:04→20:52)
[2019-03-01] MEDS: Simethicone 80 MG Tab.Chew PO PRN ×2 (16:44→21:16)
[2019-03-01] MEDS: Cetirizine 10 MG Tab PO PRN (16:44)
[2019-03-02] MEDS: Sodium Chloride 0.9% 10 ML Syringe FLUSH SCH ×6 (01:18→18:04)
[2019-03-02] MEDS: Piperacillin/Tazobactam 3.375 GM in Sodium Chloride 0.9% 50 ML IV SCH ×3 (01:18→17:30)
--- NOTE | 2019-03-02 09:15 | CT ---
INDICATION: Followup peripneumonic effusion. CT CHEST WITHOUT CONTRAST: Spiral 3.75 mm axial sections were obtained through the chest without contrast, 03/01/19, and compared with 01/06/19. Total exam DLP = 502.63 mGy-cm. The pericardium is slightly prominent, suggesting a small pericardial effusion - possible pericarditis - correlate clinically. The heart appears to be at the upper limits of normal in size. Some very minimal scarring is noted at the left lower lobe, unchanged from the previous examination. There is consolidating pneumonia and effusion again noted at the right lower lobe. The amount of consolidated lung appears to be slightly increased, compared with the previous examination. Although the amount of pleural effusion appears similar or only slightly increased, there are now noted multiple gas bubbles within that effusion, compatible with onset of a gas- forming organism infection in the right pleural effusion. No mediastinal mass was identified. Mediastinal lymphadenopathy is again noted and may be slightly more prominent, compatible with ongoing infection. Increased size of lymph nodes is seen, especially precarinal. The upper abdomen included on the study showed evidence of cholelithiasis, as previously. Within the gallstones, there is gas, suggesting the possibility of gas-forming organism infection. Additionally, the wall of the gallbladder, although not well visualized, appears to be somewhat thickened, raising question of the possibility of cholecystitis, at least of a chronic nature. IMPRESSION: 1. Ongoing pleural parenchymal changes in the right lower lobe with increased consolidation and gas bubbles now seen in the pleural effusion, suggesting gas- forming organism infection onset. 2. Pericardial effusion. 3. Increased mediastinal lymphadenopathy. 4. Cholelithiasis with probable cholecystitis and possibility of gas-forming organism infection with multiple gas-containing calculi filling the gallbladder and thickened wall of the gallbladder. Report faxed to Dr. Gt Collins and Dr. Gatito Loaiza on 03/02/19 at 0915 hours. [facility]
[2019-03-02] MEDS: Docusate Sodium 100 MG Cap PO SCH ×2 (09:55→18:06)
[2019-03-02] MEDS: Lubiprostone 24 MCG Cap PO SCH ×2 (09:55→18:06)
[2019-03-02] MEDS: Tolterodine 4 MG Cap.ER PO SCH (09:56)
[2019-03-02] MEDS: Bisacodyl 5 MG Tab PO SCH (09:57)
[2019-03-02] MEDS: Fluticasone Propionate Nasal Spray 16 GM Bottle NASBOTH SCH ×2 (09:57→21:29)
[2019-03-02] MEDS: Cholecalciferol (Vitamin D3) 1,000 Unit Tab PO SCH (09:58)
[2019-03-02] MEDS: Ascorbic Acid 500 MG Tab PO SCH (09:58)
[2019-03-02] MEDS: Budesonide 0.25 MG/2 ML Neb Susp INH SCH ×2 (09:58→21:27)
[2019-03-02] MEDS: Acetaminophen 650 MG Tab.ER PO SCH ×2 (09:58→21:29)
[2019-03-02] MEDS: Diazepam 5 MG Tab PO SCH (10:04)
[2019-03-02] MEDS: Simethicone 80 MG Tab.Chew PO PRN ×3 (10:04→21:47)
[2019-03-02] MEDS: CRANBERRY 500 MG PO SCH (10:05)
[2019-03-02] MEDS: Diazepam 5 MG Tab PO PRN ×2 (16:03→21:47)
[2019-03-03] MEDS: Sodium Chloride 0.9% 10 ML Syringe FLUSH SCH ×6 (00:55→17:31)
[2019-03-03] MEDS: Piperacillin/Tazobactam 3.375 GM in Sodium Chloride 0.9% 50 ML IV SCH ×3 (00:56→16:51)
--- NOTE | 2019-03-03 09:26 | PCM.PN ---
- General Info Date of Service: 03/03/19 Subjective Update: Mr Rivas complains of some chest heaviness, chronic pain, but denies any fever chills or shortness of breath. He denies pain except his chronic usual pain. - Review of Systems Pulmonary: Denies: Pleuritic Chest Pain, Cough Cardiovascular: Reports: No Symptoms Gastrointestinal: Denies: Constipation Genitourinary: Reports: No Symptoms, Other (has suprapubic catheter) - Patient Data Vitals - Most Recent: Last Vital Signs Temp 98 F 03/02/19 11:00 Pulse 58 L 03/02/19 11:00 Resp 16 03/02/19 11:00 BP 134/80 03/02/19 11:00 Pulse Ox 94 L 03/02/19 21:00 Weight - Most Recent: 80.824 kg I&O - Last 24 Hours: Intake & Output 03/02/19 03/03/19 03/03/19 22:59 06:59 14:59 Intake Total 500 150 Output Total 1200 2000 Balance -700 -1850 Lab Results Last 24 Hours: Laboratory Results - last 24 hr 03/02/19 03/02/19 03/02/19 Range/Units 10:20 10:20 10:20 WBC 5.1 (4.5-12.0) X10-3/uL RBC 3.86 L (4.30-5.75) x10(6)uL Hgb 12.1 L (13.5-17.8) g/dL Hct 36.8 (30.0-51.3) % MCV 95.5 (80-96) fL MCH 31.3 (27.7-33.6) pg MCHC 32.7 (32.2-35.4) g/dL RDW 17.4 H (11.5-15.5) % Plt Count 192 (125-369) X10(3)uL MPV 7.9 (7.4-10.4) fL Neut % (Auto) 63.8 (46-82) % Lymph % (Auto) 26.4 (13-37) % [place] % (Auto) 6.1 (4-12) % Eos % (Auto) 3 (1.0-5.0) % Baso % (Auto) 1 (0-2) % Neut # (Auto) 3.3 (1.6-8.3) # Lymph # (Auto) 1.3 (0.6-5.0) # [place] # (Auto) 0.3 (0.0-1.3) # Eos # (Auto) 0.2 (0.0-0.8) # Baso # (Auto) 0.0 (0.0-0.2) # ESR 67 H (0-15) mm/hr Creatinine 0.5 L (0.70-1.30) mg/dL Est Cr Clr Drug Dosing 197.57 mL/min Estimated GFR (MDRD) > 60 (>60) ALT 21 D (12-36) U/L C-Reactive Protein 7.8 H* (0.5-0.9) mg/dL Med Orders - Current: Current Medications Acetaminophen (Tylenol Arthritis Pain) 1,300 mg PO BID [facility] Last Admin: 03/02/19 21:29 Dose: 1,300 mg Albuterol/Ipratropium (Duoneb 3.0-0.5 Mg/3 Ml) 3 ml NEB QID PRN PRN Reason: BRONCHOSPASM Ascorbic Acid (Vitamin C) 500 mg PO DAILY [facility] Last Admin: 03/02/19 09:58 Dose: 500 mg Baclofen (Lioresal) 20 mg PO TID PRN PRN Reason: WITHDRAWL SYMPTOMS Bisacodyl (Dulcolax) 10 mg RECTAL MOWEFR [facility] Last Admin: 03/03/19 08:02 Dose: 10 mg Bisacodyl (Dulcolax) 10 mg PO SuTuTh@0900 [facility] Last Admin: 03/02/19 09:57 Dose: 10 mg Bisacodyl (Dulcolax) 10 mg RECTAL Ibarra ONE Stop: 03/07/19 09:01 Bisacodyl (Dulcolax) 10 mg PO Sa ONE Stop: 03/06/19 09:01 Budesonide (Pulmicort) 0.25 mg INH BID [facility] Last Admin: 03/02/19 21:27 Dose: 0.25 mg Cetirizine HCl (Zyrtec) 10 mg PO DAILY PRN PRN Reason: Allergies Last Admin: 03/01/19 16:44 Dose: 10 mg Cholecalciferol (Vitamin D3) 2,000 units PO DAILY [facility] Last Admin: 03/02/19 09:58 Dose: 2,000 units Cranberry (Cranberry) 500 mg PO DAILY [facility] Last Admin: 03/02/19 10:05 Dose: 500 mg Diazepam (Valium.) 5 mg PO DAILY [facility] Last Admin: 03/02/19 10:04 Dose: 5 mg Diazepam (Valium.) 5 mg PO Q4H PRN PRN Reason: MUSCLE SPASM/PAIN Last Admin: 03/02/19 21:47 Dose: 5 mg Docusate Sodium (Colace) 100 mg PO BID@0800,1800 [facility] Last Admin: 03/02/19 18:06 Dose: 100 mg Fluticasone Propionate (Flonase) 0 gm NASBOTH BID [facility] Last Admin: 03/02/19 21:29 Dose: 1 spray Heparin Sodium (Porcine) (Heparin Lock Flush 100 Units/Ml) 300 units FLUSH Q8H [facility] Last Admin: 03/03/19 09:18 Dose: 300 units Hydrocortisone (Hydrocortisone 2.5% Crm) 0.5 gm TOP BID PRN PRN Reason: Itching Piperacillin Sod/Tazobactam (Sod 3.375 gm/ Sodium Chloride) 50 mls @ 100 mls/ hr IV Q8H [facility] Last Admin: 03/03/19 08:44 Dose: 100 mls/hr Sodium Chloride (Normal Saline) 250 mls @ 100 mls/hr IV ASDIRECTED [facility] Last Admin: 02/26/19 01:22 Dose: 100 mls/hr Lubiprostone (Amitiza) 24 mcg PO BIDMEALS [facility] Last Admin: 03/02/19 18:06 Dose: 24 mcg Melatonin (Melatonin) 10 mg PO BEDTIME PRN PRN Reason: INSOMNIA Last Admin: 03/02/19 21:29 Dose: 10 mg Mineral Oil (Mineral Oil) 15 ml PO DAILY [facility] Last Admin: 03/02/19 09:57 Dose: 15 ml (Baclofen Pump 1 Ea) (*Ptom) 1 ea ITHECAL ASDIRECTED [facility] Phenyleph/Shark Oil/Min Oil/Petrol (Preparation H Oint) 0 gm RECTAL MoWeFr [facility] Last Admin: 03/01/19 09:26 Dose: 1 applic Polyethylene Glycol (Miralax) 17 gm PO BEDTIME PRN PRN Reason: Constipation Last Admin: 02/23/19 08:55 Dose: 17 gm Simethicone (Simethicone) 80 mg PO QID PRN PRN Reason: FLATULENCE Last Admin: 03/02/19 21:47 Dose: 80 mg Sodium Chloride (Saline Flush) 10 ml FLUSH Q8H [facility] Last Admin: 03/03/19 08:48 Dose: 10 ml Sodium Chloride (Saline Flush) 10 ml FLUSH Q8H [facility] Last Admin: 03/03/19 01:35 Dose: 10 ml Tolterodine Tartrate (Detrol La 24 Hr) 4 mg PO DAILY [facility] Last Admin: 03/02/19 09:56 Dose: 4 mg Discontinued Medications Acetaminophen (Tylenol) 650 mg PO Q4H PRN PRN Reason: Pain Last Admin: 02/21/19 14:30 Dose: 650 mg Bisacodyl (Dulcolax) 10 mg PO Q48H [facility] Last Admin: 02/19/19 08:55 Dose: 10 mg Bisacodyl (Dulcolax) 10 mg RECTAL ONETIME ONE Stop: 02/20/19 09:01 Last Admin: 02/20/19 08:05 Dose: 10 mg Bisacodyl (Dulcolax) 10 mg PO SuTuTh [facility] Bisacodyl (Dulcolax) 20 mg PO SuTuTh@0900 [facility] Last Admin: 02/21/19 09:49 Dose: Not Given Docusate Sodium (Colace) 100 mg PO BID [facility] Docusate Sodium (Colace) 100 mg PO ONETIME ONE Stop: 02/25/19 19:05 Last Admin: 02/25/19 19:23 Dose: 100 mg Sodium Chloride (Normal Saline) 250 mls @ 0 mls/hr IV ASDIRECTED [facility] Stop: 02/26/19 00:35 Phenyleph/Shark Oil/Min Oil/Petrol (Preparation H Oint) 0 gm RECTAL 02/20/19 ONE Stop: 02/20/19 09:01 Last Admin: 02/20/19 10:37 Dose: 1 applic Prednisone (Prednisone) 40 mg PO DAILY [facility] Prednisone (Prednisone) 20 mg PO DAILY [facility] Stop: 02/21/19 23:59 Last Admin: 02/21/19 08:42 Dose: 20 mg - Exam General: Alert HEENT: Pupils Equal Neck: Supple Lungs: Normal Respiratory Effort, Decreased Breath Sounds Cardiovascular: Regular Rate - Problem List & Annotations (1) Parapneumonic effusion SNOMED Code(s): 74410536 Code(s): J18.9 - PNEUMONIA, UNSPECIFIED ORGANISM; J91.8 - PLEURAL EFFUSION IN OTHER CONDITIONS CLASSIFIED ELSEWHERE Status: Acute Current Visit: Yes (2) Paraplegia, incomplete SNOMED Code(s): 079748457235608 Code(s): G82.22 - PARAPLEGIA, INCOMPLETE Status: Acute Current Visit: Yes (3) Palliative care status SNOMED Code(s): 661135489 Code(s): Z51.5 - ENCOUNTER FOR PALLIATIVE CARE Status: Acute Current Visit: No (4) Pneumonia SNOMED Code(s): 535343100 Code(s): J18.9 - PNEUMONIA, UNSPECIFIED ORGANISM Status: Acute Current Visit: No Qualifiers: Pneumonia type: due to unspecified organism - Problem List Review Problem List Initiated/Reviewed/Updated: Yes - My Orders Last 24 Hours: My Active Orders 03/08/19 06:00 ALANINE AMINOTRANSFERASE,ALT [CHEM] Q7D C-REACTIVE PROTEIN [CHEM] Q7D CBC WITH AUTO DIFF [HEME] Q7D CREATININE W/GFR [CHEM] Q7D SEDIMENTATION RATE MANUAL [HEME] Q7D 03/15/19 06:00 ALANINE AMINOTRANSFERASE,ALT [CHEM] Q7D C-REACTIVE PROTEIN [CHEM] Q7D CBC WITH AUTO DIFF [HEME] Q7D CREATININE W/GFR [CHEM] Q7D SEDIMENTATION RATE MANUAL [HEME] Q7D - Plan Plan:: The CT that was done yesterday showed increased consolidation and gas bubbles. The also also some new gallbladder stones and possibly cholecystitis. His CRP was up to 7.7 and ESR was up to 60s. I called and spoke infectious disease service, they felt that since he does not have an increased white cell count or fever and his clinical status remained the same, they recommended to continue on the current regimen of Zosyn whcih has excellent anaerobic coverage. They will see him in the clinic next week.
[2019-03-03] MEDS: Lubiprostone 24 MCG Cap PO SCH ×2 (09:41→18:02)
[2019-03-03] MEDS: CRANBERRY 500 MG PO SCH (09:42)
[2019-03-03] MEDS: Docusate Sodium 100 MG Cap PO SCH ×2 (09:42→18:02)
[2019-03-03] MEDS: Fluticasone Propionate Nasal Spray 16 GM Bottle NASBOTH SCH ×2 (09:43→21:07)
[2019-03-03] MEDS: Tolterodine 4 MG Cap.ER PO SCH (09:43)
[2019-03-03] MEDS: Cholecalciferol (Vitamin D3) 1,000 Unit Tab PO SCH (09:45)
[2019-03-03] MEDS: Budesonide 0.25 MG/2 ML Neb Susp INH SCH ×2 (09:45→21:03)
[2019-03-03] MEDS: Ascorbic Acid 500 MG Tab PO SCH (09:45)
[2019-03-03] MEDS: Acetaminophen 650 MG Tab.ER PO SCH ×2 (09:45→21:03)
[2019-03-03] MEDS: Diazepam 5 MG Tab PO SCH (09:56)
[2019-03-03] MEDS: Simethicone 80 MG Tab.Chew PO PRN ×3 (09:56→21:03)
[2019-03-03] MEDS: Mineral Oil/Petrolatum/Phenylephrine/Shark Liver Oil Oint 57 GM Tube RECTAL SCH (10:01)
[2019-03-03] MEDS: Diazepam 5 MG Tab PO PRN ×2 (16:18→21:03)
[2019-03-04] MEDS: Sodium Chloride 0.9% 10 ML Syringe FLUSH SCH ×6 (01:25→17:47)
[2019-03-04] MEDS: Piperacillin/Tazobactam 3.375 GM in Sodium Chloride 0.9% 50 ML IV SCH ×3 (01:26→17:03)
[2019-03-04] MEDS: Docusate Sodium 100 MG Cap PO SCH ×2 (09:26→17:48)
[2019-03-04] MEDS: Lubiprostone 24 MCG Cap PO SCH ×2 (09:28→17:09)
[2019-03-04] MEDS: Tolterodine 4 MG Cap.ER PO SCH (09:29)
[2019-03-04] MEDS: CRANBERRY 500 MG PO SCH (09:29)
[2019-03-04] MEDS: Fluticasone Propionate Nasal Spray 16 GM Bottle NASBOTH SCH ×2 (09:30→21:24)
[2019-03-04] MEDS: Cholecalciferol (Vitamin D3) 1,000 Unit Tab PO SCH (09:31)
[2019-03-04] MEDS: Acetaminophen 650 MG Tab.ER PO SCH ×2 (09:31→21:24)
[2019-03-04] MEDS: Ascorbic Acid 500 MG Tab PO SCH (09:31)
[2019-03-04] MEDS: Budesonide 0.25 MG/2 ML Neb Susp INH SCH ×2 (09:32→21:19)
[2019-03-04] MEDS: Simethicone 80 MG Tab.Chew PO PRN ×3 (09:50→21:24)
[2019-03-04] MEDS: Diazepam 5 MG Tab PO SCH (09:50)
[2019-03-04] MEDS: Bisacodyl 5 MG Tab PO SCH (09:51)
[2019-03-04] MEDS: Diazepam 5 MG Tab PO PRN ×2 (14:36→21:24)
[2019-03-05] MEDS: Sodium Chloride 0.9% 10 ML Syringe FLUSH SCH ×6 (00:37→17:38)
[2019-03-05] MEDS: Piperacillin/Tazobactam 3.375 GM in Sodium Chloride 0.9% 50 ML IV SCH ×3 (00:37→17:02)
[2019-03-05] MEDS: Diazepam 5 MG Tab PO SCH (08:05)
[2019-03-05] MEDS: Budesonide 0.25 MG/2 ML Neb Susp INH SCH ×2 (08:51→20:54)
[2019-03-05] MEDS: Docusate Sodium 100 MG Cap PO SCH ×2 (10:18→17:11)
[2019-03-05] MEDS: Lubiprostone 24 MCG Cap PO SCH ×2 (10:18→17:11)
[2019-03-05] MEDS: CRANBERRY 500 MG PO SCH (10:19)
[2019-03-05] MEDS: Tolterodine 4 MG Cap.ER PO SCH (10:22)
[2019-03-05] MEDS: Acetaminophen 650 MG Tab.ER PO SCH ×2 (10:23→21:01)
[2019-03-05] MEDS: Ascorbic Acid 500 MG Tab PO SCH (10:24)
[2019-03-05] MEDS: Cholecalciferol (Vitamin D3) 1,000 Unit Tab PO SCH (10:25)
[2019-03-05] MEDS: Fluticasone Propionate Nasal Spray 16 GM Bottle NASBOTH SCH ×2 (10:28→21:00)
[2019-03-05] MEDS: Simethicone 80 MG Tab.Chew PO PRN ×3 (10:35→21:02)
[2019-03-05] MEDS: Mineral Oil/Petrolatum/Phenylephrine/Shark Liver Oil Oint 57 GM Tube RECTAL SCH (10:39)
[2019-03-05] MEDS: Diazepam 5 MG Tab PO PRN (15:35)
[2019-03-06] MEDS: Piperacillin/Tazobactam 3.375 GM in Sodium Chloride 0.9% 50 ML IV SCH ×3 (00:53→16:34)
[2019-03-06] MEDS: Sodium Chloride 0.9% 10 ML Syringe FLUSH SCH ×6 (00:53→17:13)
[2019-03-06] MEDS: Simethicone 80 MG Tab.Chew PO PRN ×3 (08:49→20:38)
[2019-03-06] MEDS: Docusate Sodium 100 MG Cap PO SCH ×2 (08:49→17:14)
[2019-03-06] MEDS: Lubiprostone 24 MCG Cap PO SCH ×2 (08:49→17:14)
[2019-03-06] MEDS: Diazepam 5 MG Tab PO SCH (08:50)
[2019-03-06] MEDS: CRANBERRY 500 MG PO SCH (08:50)
[2019-03-06] MEDS: Fluticasone Propionate Nasal Spray 16 GM Bottle NASBOTH SCH ×2 (08:53→20:37)
[2019-03-06] MEDS: Budesonide 0.25 MG/2 ML Neb Susp INH SCH ×2 (08:54→20:29)
[2019-03-06] MEDS: Acetaminophen 650 MG Tab.ER PO SCH ×2 (08:55→20:37)
[2019-03-06] MEDS: Tolterodine 4 MG Cap.ER PO SCH (08:55)
[2019-03-06] MEDS: Cholecalciferol (Vitamin D3) 1,000 Unit Tab PO SCH (08:56)
[2019-03-06] MEDS: Ascorbic Acid 500 MG Tab PO SCH (08:56)
[2019-03-06] MEDS ORDERED: Bisacodyl 5 MG Tab PO ONE (09:00)
[2019-03-06] MEDS: Diazepam 5 MG Tab PO PRN ×2 (11:58→20:38)
[2019-03-06] MEDS: Cetirizine 10 MG Tab PO PRN (20:40)
[2019-03-07] MEDS: Sodium Chloride 0.9% 10 ML Syringe FLUSH SCH ×6 (01:03→17:15)
[2019-03-07] MEDS: Piperacillin/Tazobactam 3.375 GM in Sodium Chloride 0.9% 50 ML IV SCH ×3 (01:03→16:43)
[2019-03-07] MEDS: BISACODYL 10 MG RECTAL ONE ×2 (07:43→09:26)
[2019-03-07] MEDS: Diazepam 5 MG Tab PO SCH (08:24)
[2019-03-07] MEDS: Docusate Sodium 100 MG Cap PO SCH ×2 (08:24→17:14)
[2019-03-07] MEDS: Lubiprostone 24 MCG Cap PO SCH ×2 (08:25→17:14)
[2019-03-07] MEDS: Budesonide 0.25 MG/2 ML Neb Susp INH SCH ×2 (09:24→21:07)
[2019-03-07] MEDS: CRANBERRY 500 MG PO SCH (09:25)
[2019-03-07] MEDS: Tolterodine 4 MG Cap.ER PO SCH (09:25)
[2019-03-07] MEDS: Acetaminophen 650 MG Tab.ER PO SCH ×2 (09:26→21:07)
[2019-03-07] MEDS: Cholecalciferol (Vitamin D3) 1,000 Unit Tab PO SCH (09:27)
[2019-03-07] MEDS: Ascorbic Acid 500 MG Tab PO SCH (09:27)
[2019-03-07] MEDS: Fluticasone Propionate Nasal Spray 16 GM Bottle NASBOTH SCH ×2 (09:27→21:14)
[2019-03-07] MEDS: Diazepam 5 MG Tab PO PRN ×2 (13:42→21:07)
[2019-03-07] MEDS: Simethicone 80 MG Tab.Chew PO PRN ×2 (13:42→21:13)
[2019-03-08] MEDS: Piperacillin/Tazobactam 3.375 GM in Sodium Chloride 0.9% 50 ML IV SCH ×3 (00:49→17:32)
[2019-03-08] MEDS: Sodium Chloride 0.9% 10 ML Syringe FLUSH SCH ×6 (00:49→17:40)
--- NOTE | 2019-03-08 07:55 | PCM.PN ---
- General Info Date of Service: 03/08/19 Admission Dx/Problem (Free Text): Patient states she's had some loose stools. He has also chronic constipation. He had a barium enema in [place] and then had a bowel prep by Dr. Baxter. He also is on antibiotics. He denies shortness of breath or wheezing. He has occasional cough. No fevers or chills. - Patient Data Vitals - Most Recent: Last Vital Signs Temp 98.0 F 03/07/19 07:45 Pulse 47 L 03/07/19 07:45 Resp 20 03/07/19 07:45 BP 140/87 03/07/19 07:45 Pulse Ox 95 03/07/19 21:00 Weight - Most Recent: 180 lb I&O - Last 24 Hours: Intake & Output 03/07/19 03/08/19 03/08/19 22:59 06:59 14:59 Intake Total 50 Output Total 325 1825 Balance -325 -1775 Lab Results Last 24 Hours: Laboratory Results - last 24 hr 03/08/19 03/08/19 03/08/19 Range/Units 06:55 06:55 06:55 WBC 4.7 (4.5-12.0) X10-3/uL RBC 3.77 L (4.30-5.75) x10(6)uL Hgb 11.9 L (13.5-17.8) g/dL Hct 35.9 (30.0-51.3) % MCV 95.1 (80-96) fL MCH 31.5 (27.7-33.6) pg MCHC 33.1 (32.2-35.4) g/dL RDW 17.1 H (11.5-15.5) % Plt Count 194 (125-369) X10(3)uL MPV 7.6 (7.4-10.4) fL Neut % (Auto) 53.6 (46-82) % Lymph % (Auto) 33.0 (13-37) % [place] % (Auto) 9.4 (4-12) % Eos % (Auto) 3 (1.0-5.0) % Baso % (Auto) 1 (0-2) % Neut # (Auto) 2.6 (1.6-8.3) # Lymph # (Auto) 1.6 (0.6-5.0) # [place] # (Auto) 0.4 (0.0-1.3) # Eos # (Auto) 0.1 (0.0-0.8) # Baso # (Auto) 0.0 (0.0-0.2) # Creatinine 0.5 L (0.70-1.30) mg/dL Est Cr Clr Drug Dosing 197.31 mL/min Estimated GFR (MDRD) > 60 (>60) ALT 22 (12-36) U/L C-Reactive Protein 6.0 H* (0.5-0.9) mg/dL Med Orders - Current: Current Medications Acetaminophen (Tylenol Arthritis Pain) 1,300 mg PO BID [facility] Last Admin: 03/07/19 21:07 Dose: 1,300 mg Albuterol/Ipratropium (Duoneb 3.0-0.5 Mg/3 Ml) 3 ml NEB QID PRN PRN Reason: BRONCHOSPASM Ascorbic Acid (Vitamin C) 500 mg PO DAILY [facility] Last Admin: 03/07/19 09:27 Dose: 500 mg Baclofen (Lioresal) 20 mg PO TID PRN PRN Reason: WITHDRAWL SYMPTOMS Bisacodyl (Dulcolax) 10 mg RECTAL MOWEFR [facility] Last Admin: 03/05/19 08:10 Dose: 10 mg Bisacodyl (Dulcolax) 10 mg PO SuTuTh@0900 [facility] Last Admin: 03/04/19 09:51 Dose: 10 mg Budesonide (Pulmicort) 0.25 mg INH BID [facility] Last Admin: 03/07/19 21:07 Dose: 0.25 mg Cetirizine HCl (Zyrtec) 10 mg PO DAILY PRN PRN Reason: Allergies Last Admin: 03/06/19 20:40 Dose: 10 mg Cholecalciferol (Vitamin D3) 2,000 units PO DAILY [facility] Last Admin: 03/07/19 09:27 Dose: 2,000 units Cranberry (Cranberry) 500 mg PO DAILY [facility] Last Admin: 03/07/19 09:25 Dose: 500 mg Diazepam (Valium.) 5 mg PO DAILY [facility] Last Admin: 03/07/19 08:24 Dose: 5 mg Diazepam (Valium.) 5 mg PO Q4H PRN PRN Reason: MUSCLE SPASM/PAIN Last Admin: 03/07/19 21:07 Dose: 5 mg Docusate Sodium (Colace) 100 mg PO BID@0800,1800 [facility] Last Admin: 03/07/19 17:14 Dose: 100 mg Fluticasone Propionate (Flonase) 0 gm NASBOTH BID [facility] Last Admin: 03/07/19 21:14 Dose: 1 spray Heparin Sodium (Porcine) (Heparin Lock Flush 100 Units/Ml) 300 units FLUSH Q8H [facility] Last Admin: 03/08/19 01:22 Dose: 300 units Hydrocortisone (Hydrocortisone 2.5% Crm) 0.5 gm TOP BID PRN PRN Reason: Itching Piperacillin Sod/Tazobactam (Sod 3.375 gm/ Sodium Chloride) 50 mls @ 100 mls/ hr IV Q8H [facility] Last Admin: 03/08/19 00:49 Dose: 100 mls/hr Sodium Chloride (Normal Saline) 250 mls @ 100 mls/hr IV ASDIRECTED [facility] Last Admin: 02/26/19 01:22 Dose: 100 mls/hr Lubiprostone (Amitiza) 24 mcg PO BIDMEALS [facility] Last Admin: 03/07/19 17:14 Dose: 24 mcg Melatonin (Melatonin) 10 mg PO BEDTIME PRN PRN Reason: INSOMNIA Last Admin: 03/07/19 21:18 Dose: 10 mg (Baclofen Pump 1 Ea) (*Ptom) 1 ea ITHECAL ASDIRECTED [facility] Phenyleph/Shark Oil/Min Oil/Petrol (Preparation H Oint) 0 gm RECTAL MoWeFr [facility] Last Admin: 03/05/19 10:39 Dose: 1 applic Polyethylene Glycol (Miralax) 17 gm PO BEDTIME PRN PRN Reason: Constipation Last Admin: 02/23/19 08:55 Dose: 17 gm Simethicone (Simethicone) 80 mg PO QID PRN PRN Reason: FLATULENCE Last Admin: 03/07/19 21:13 Dose: 80 mg Sodium Chloride (Saline Flush) 10 ml FLUSH Q8H [facility] Last Admin: 03/08/19 00:49 Dose: 10 ml Sodium Chloride (Saline Flush) 10 ml FLUSH Q8H [facility] Last Admin: 03/08/19 01:21 Dose: 10 ml Tolterodine Tartrate (Detrol La 24 Hr) 4 mg PO DAILY [facility] Last Admin: 03/07/19 09:25 Dose: 4 mg Discontinued Medications Acetaminophen (Tylenol) 650 mg PO Q4H PRN PRN Reason: Pain Last Admin: 02/21/19 14:30 Dose: 650 mg Bisacodyl (Dulcolax) 10 mg PO Q48H [facility] Last Admin: 02/19/19 08:55 Dose: 10 mg Bisacodyl (Dulcolax) 10 mg RECTAL ONETIME ONE Stop: 02/20/19 09:01 Last Admin: 02/20/19 08:05 Dose: 10 mg Bisacodyl (Dulcolax) 10 mg PO SuTuTh [facility] Bisacodyl (Dulcolax) 20 mg PO SuTuTh@0900 [facility] Last Admin: 02/21/19 09:49 Dose: Not Given Bisacodyl (Dulcolax) 10 mg RECTAL Ibarra ONE Stop: 03/07/19 09:01 Last Admin: 03/07/19 09:26 Dose: Not Given Bisacodyl (Dulcolax) 10 mg PO Sa ONE Stop: 03/06/19 09:01 Last Admin: 03/06/19 08:50 Dose: 10 mg Docusate Sodium (Colace) 100 mg PO BID [facility] Docusate Sodium (Colace) 100 mg PO ONETIME ONE Stop: 02/25/19 19:05 Last Admin: 02/25/19 19:23 Dose: 100 mg Sodium Chloride (Normal Saline) 250 mls @ 0 mls/hr IV ASDIRECTED [facility] Stop: 02/26/19 00:35 Mineral Oil (Mineral Oil) 15 ml PO DAILY [facility] Last Admin: 03/04/19 10:46 Dose: Not Given Phenyleph/Shark Oil/Min Oil/Petrol (Preparation H Oint) 0 gm RECTAL 02/20/19 ONE Stop: 02/20/19 09:01 Last Admin: 02/20/19 10:37 Dose: 1 applic Prednisone (Prednisone) 40 mg PO DAILY [facility] Prednisone (Prednisone) 20 mg PO DAILY [facility] Stop: 02/21/19 23:59 Last Admin: 02/21/19 08:42 Dose: 20 mg - Exam General: Alert, Oriented, Cooperative Lungs: Clear to Auscultation, Normal Respiratory Effort Cardiovascular: Regular Rate, Regular Rhythm, No Murmurs - Problem List & Annotations (1) Constipation SNOMED Code(s): 30726665 Code(s): K59.00 - CONSTIPATION, UNSPECIFIED Status: Acute Current Visit: Yes Qualifiers: Constipation type: drug induced constipation Qualified Code(s): K59.03 - Drug induced constipation (2) Paraplegia, incomplete SNOMED Code(s): 286155060123349 Code(s): G82.22 - PARAPLEGIA, INCOMPLETE Status: Acute Current Visit: Yes (3) Parapneumonic effusion SNOMED Code(s): 13053905 Code(s): J18.9 - PNEUMONIA, UNSPECIFIED ORGANISM; J91.8 - PLEURAL EFFUSION IN OTHER CONDITIONS CLASSIFIED ELSEWHERE Status: Acute Current Visit: Yes (4) Pneumonia SNOMED Code(s): 336448057 Code(s): J18.9 - PNEUMONIA, UNSPECIFIED ORGANISM Status: Acute Current Visit: No Qualifiers: Pneumonia type: due to unspecified organism - Problem List Review Problem List Initiated/Reviewed/Updated: Yes - Plan Plan:: 1. No changes to his bowel prep this could possibly be due to the antibiotics. 2. Did review Dr. Flood's note on the CT scan and IDs recommendation. 3. He will go to [place] [facility] today. No changes per me.
[2019-03-08] MEDS: Lubiprostone 24 MCG Cap PO SCH ×2 (08:00→17:40)
[2019-03-08] MEDS: Docusate Sodium 100 MG Cap PO SCH ×2 (08:00→17:40)
[2019-03-08] MEDS: CRANBERRY 500 MG PO SCH (08:01)
[2019-03-08] MEDS: Fluticasone Propionate Nasal Spray 16 GM Bottle NASBOTH SCH ×2 (08:01→20:27)
[2019-03-08] MEDS: Tolterodine 4 MG Cap.ER PO SCH (08:01)
[2019-03-08] MEDS: Ascorbic Acid 500 MG Tab PO SCH (08:02)
[2019-03-08] MEDS: Cholecalciferol (Vitamin D3) 1,000 Unit Tab PO SCH (08:02)
[2019-03-08] MEDS: Acetaminophen 650 MG Tab.ER PO SCH ×2 (08:02→20:28)
[2019-03-08] MEDS: Diazepam 5 MG Tab PO SCH (08:02)
[2019-03-08] MEDS: Mineral Oil/Petrolatum/Phenylephrine/Shark Liver Oil Oint 57 GM Tube RECTAL SCH (08:04)
[2019-03-08] MEDS: Budesonide 0.25 MG/2 ML Neb Susp INH SCH ×2 (14:40→20:20)
[2019-03-08] MEDS: Diazepam 5 MG Tab PO PRN ×2 (17:31→21:08)
[2019-03-08] MEDS: Cetirizine 10 MG Tab PO PRN (20:28)
[2019-03-08] MEDS: Simethicone 80 MG Tab.Chew PO PRN (20:28)
[2019-03-09] MEDS: Sodium Chloride 0.9% 10 ML Syringe FLUSH SCH ×6 (00:54→17:34)
[2019-03-09] MEDS: Piperacillin/Tazobactam 3.375 GM in Sodium Chloride 0.9% 50 ML IV SCH ×3 (00:54→17:02)
[2019-03-09] MEDS ORDERED: Bisacodyl 10 MG Supp *PTOM RECTAL ONE (08:15)
[2019-03-09] MEDS: Cholecalciferol (Vitamin D3) 1,000 Unit Tab PO SCH (08:53)
[2019-03-09] MEDS: Lubiprostone 24 MCG Cap PO SCH ×2 (08:53→17:42)
[2019-03-09] MEDS: Docusate Sodium 100 MG Cap PO SCH ×2 (08:53→17:43)
[2019-03-09] MEDS: CRANBERRY 500 MG PO SCH (08:53)
[2019-03-09] MEDS: Tolterodine 4 MG Cap.ER PO SCH (08:53)
[2019-03-09] MEDS: Fluticasone Propionate Nasal Spray 16 GM Bottle NASBOTH SCH ×2 (08:54→20:55)
[2019-03-09] MEDS: Bisacodyl 5 MG Tab PO SCH (08:54)
[2019-03-09] MEDS: Ascorbic Acid 500 MG Tab PO SCH (08:55)
[2019-03-09] MEDS: Acetaminophen 650 MG Tab.ER PO SCH ×2 (08:55→20:56)
[2019-03-09] MEDS: Budesonide 0.25 MG/2 ML Neb Susp INH SCH ×2 (08:56→20:56)
[2019-03-09] MEDS: Diazepam 5 MG Tab PO SCH (09:00)
[2019-03-09] MEDS: Simethicone 80 MG Tab.Chew PO PRN ×2 (09:00→17:43)
[2019-03-09] MEDS: Diazepam 5 MG Tab PO PRN ×2 (15:09→18:50)
[2019-03-09] MEDS: Cetirizine 10 MG Tab PO PRN (18:51)
[2019-03-10] MEDS: Sodium Chloride 0.9% 10 ML Syringe FLUSH SCH ×5 (00:55→16:02)
[2019-03-10] MEDS: Piperacillin/Tazobactam 3.375 GM in Sodium Chloride 0.9% 50 ML IV SCH ×3 (00:56→16:03)
[2019-03-10] MEDS: Lubiprostone 24 MCG Cap PO SCH (08:33)
[2019-03-10] MEDS: Docusate Sodium 100 MG Cap PO SCH (08:33)
[2019-03-10] MEDS: Budesonide 0.25 MG/2 ML Neb Susp INH SCH (08:34)
--- NOTE | 2019-03-10 08:40 | PCM.PN ---
- General Info Date of Service: 03/10/19 Admission Dx/Problem (Free Text): Patient doing well. No concerns today. - Patient Data Vitals - Most Recent: Last Vital Signs Temp 98.2 F 03/09/19 08:15 Pulse 54 L 03/09/19 08:15 Resp 18 03/09/19 08:15 BP 132/78 03/09/19 08:15 Pulse Ox 94 L 03/09/19 08:15 Weight - Most Recent: 180 lb I&O - Last 24 Hours: Intake & Output 03/09/19 03/10/19 03/10/19 22:59 06:59 14:59 Intake Total 1052 150 Output Total 4100 1425 Balance -2768 -8313 Med Orders - Current: Current Medications Acetaminophen (Tylenol Arthritis Pain) 1,300 mg PO BID [facility] Last Admin: 03/09/19 20:56 Dose: 1,300 mg Albuterol/Ipratropium (Duoneb 3.0-0.5 Mg/3 Ml) 3 ml NEB QID PRN PRN Reason: BRONCHOSPASM Ascorbic Acid (Vitamin C) 500 mg PO DAILY [facility] Last Admin: 03/09/19 08:55 Dose: 500 mg Baclofen (Lioresal) 20 mg PO TID PRN PRN Reason: WITHDRAWL SYMPTOMS Bisacodyl (Dulcolax) 10 mg RECTAL MOWEFR [facility] Last Admin: 03/05/19 08:10 Dose: 10 mg Bisacodyl (Dulcolax) 10 mg PO SuTuTh@0900 [facility] Last Admin: 03/09/19 08:54 Dose: Not Given Budesonide (Pulmicort) 0.25 mg INH BID [facility] Last Admin: 03/10/19 08:34 Dose: 0.25 mg Cetirizine HCl (Zyrtec) 10 mg PO DAILY PRN PRN Reason: Allergies Last Admin: 03/09/19 18:51 Dose: 10 mg Cholecalciferol (Vitamin D3) 2,000 units PO DAILY [facility] Last Admin: 03/09/19 08:53 Dose: 2,000 units Cranberry (Cranberry) 500 mg PO DAILY [facility] Last Admin: 03/09/19 08:53 Dose: 500 mg Diazepam (Valium.) 5 mg PO DAILY [facility] Last Admin: 03/09/19 09:00 Dose: 5 mg Diazepam (Valium.) 5 mg PO Q4H PRN PRN Reason: MUSCLE SPASM/PAIN Last Admin: 03/09/19 18:50 Dose: 5 mg Docusate Sodium (Colace) 100 mg PO BID@0800,1800 [facility] Last Admin: 03/10/19 08:33 Dose: 100 mg Fluticasone Propionate (Flonase) 0 gm NASBOTH BID [facility] Last Admin: 03/09/19 20:55 Dose: 1 spray Heparin Sodium (Porcine) (Heparin Lock Flush 100 Units/Ml) 300 units FLUSH Q8H [facility] Last Admin: 03/10/19 01:41 Dose: 300 units Hydrocortisone (Hydrocortisone 2.5% Crm) 0.5 gm TOP BID PRN PRN Reason: Itching Piperacillin Sod/Tazobactam (Sod 3.375 gm/ Sodium Chloride) 50 mls @ 100 mls/ hr IV Q8H [facility] Stop: 03/10/19 19:00 Last Admin: 03/10/19 00:56 Dose: 100 mls/hr Sodium Chloride (Normal Saline) 250 mls @ 100 mls/hr IV ASDIRECTED [facility] Last Admin: 02/26/19 01:22 Dose: 100 mls/hr Lubiprostone (Amitiza) 24 mcg PO BIDMEALS [facility] Last Admin: 03/10/19 08:33 Dose: 24 mcg Melatonin (Melatonin) 10 mg PO BEDTIME PRN PRN Reason: INSOMNIA Last Admin: 03/09/19 20:56 Dose: 10 mg (Baclofen Pump 1 Ea) (*Ptom) 1 ea ITHECAL ASDIRECTED [facility] Phenyleph/Shark Oil/Min Oil/Petrol (Preparation H Oint) 0 gm RECTAL MoWeFr [facility] Last Admin: 03/08/19 08:04 Dose: 1 applic Polyethylene Glycol (Miralax) 17 gm PO BEDTIME PRN PRN Reason: Constipation Last Admin: 02/23/19 08:55 Dose: 17 gm Simethicone (Simethicone) 80 mg PO QID PRN PRN Reason: FLATULENCE Last Admin: 03/09/19 17:43 Dose: 80 mg Sodium Chloride (Saline Flush) 10 ml FLUSH Q8H [facility] Last Admin: 03/10/19 00:55 Dose: 10 ml Sodium Chloride (Saline Flush) 10 ml FLUSH Q8H [facility] Last Admin: 03/10/19 01:40 Dose: 10 ml Tolterodine Tartrate (Detrol La 24 Hr) 4 mg PO DAILY [facility] Last Admin: 03/09/19 08:53 Dose: 4 mg Discontinued Medications Acetaminophen (Tylenol) 650 mg PO Q4H PRN PRN Reason: Pain Last Admin: 02/21/19 14:30 Dose: 650 mg Bisacodyl (Dulcolax) 10 mg PO Q48H [facility] Last Admin: 02/19/19 08:55 Dose: 10 mg Bisacodyl (Dulcolax) 10 mg RECTAL ONETIME ONE Stop: 02/20/19 09:01 Last Admin: 02/20/19 08:05 Dose: 10 mg Bisacodyl (Dulcolax) 10 mg PO SuTuTh [facility] Bisacodyl (Dulcolax) 20 mg PO SuTuTh@0900 [facility] Last Admin: 02/21/19 09:49 Dose: Not Given Bisacodyl (Dulcolax) 10 mg RECTAL Ibarra ONE Stop: 03/07/19 09:01 Last Admin: 03/07/19 09:26 Dose: Not Given Bisacodyl (Dulcolax) 10 mg PO Sa ONE Stop: 03/06/19 09:01 Last Admin: 03/06/19 08:50 Dose: 10 mg Bisacodyl (Dulcolax) 10 mg RECTAL ONETIME ONE Stop: 03/09/19 08:16 Last Admin: 03/09/19 08:19 Dose: 10 mg Docusate Sodium (Colace) 100 mg PO BID [facility] Docusate Sodium (Colace) 100 mg PO ONETIME ONE Stop: 02/25/19 19:05 Last Admin: 02/25/19 19:23 Dose: 100 mg Sodium Chloride (Normal Saline) 250 mls @ 0 mls/hr IV ASDIRECTED [facility] Stop: 02/26/19 00:35 Mineral Oil (Mineral Oil) 15 ml PO DAILY [facility] Last Admin: 03/04/19 10:46 Dose: Not Given Phenyleph/Shark Oil/Min Oil/Petrol (Preparation H Oint) 0 gm RECTAL 02/20/19 ONE Stop: 02/20/19 09:01 Last Admin: 02/20/19 10:37 Dose: 1 applic Prednisone (Prednisone) 40 mg PO DAILY [facility] Prednisone (Prednisone) 20 mg PO DAILY [facility] Stop: 02/21/19 23:59 Last Admin: 02/21/19 08:42 Dose: 20 mg - Exam General: Alert, Oriented Lungs: Normal Respiratory Effort - Problem List & Annotations (1) Constipation SNOMED Code(s): 83825240 Code(s): K59.00 - CONSTIPATION, UNSPECIFIED Status: Acute Current Visit: Yes Qualifiers: Constipation type: drug induced constipation Qualified Code(s): K59.03 - Drug induced constipation (2) Paraplegia, incomplete SNOMED Code(s): 355482150470259 Code(s): G82.22 - PARAPLEGIA, INCOMPLETE Status: Acute Current Visit: Yes (3) Parapneumonic effusion SNOMED Code(s): 60054252 Code(s): J18.9 - PNEUMONIA, UNSPECIFIED ORGANISM; J91.8 - PLEURAL EFFUSION IN OTHER CONDITIONS CLASSIFIED ELSEWHERE Status: Acute Current Visit: Yes (4) Pneumonia SNOMED Code(s): 972239110 Code(s): J18.9 - PNEUMONIA, UNSPECIFIED ORGANISM Status: Acute Current Visit: No Qualifiers: Pneumonia type: due to unspecified organism - Problem List Review Problem List Initiated/Reviewed/Updated: Yes - Assessment Assessment:: Discharge to home. Patient will be on Augmentin 875 twice a day for a month to sees infectious disease in one month. He'll have a CAT scan of his chest before his appointment. - Plan Plan:: 1. No changes to his bowel prep this could possibly be due to the antibiotics. 2. Did review Dr. Flood's note on the CT scan and IDs recommendation. 3. He will go to [facility] today. No changes per me.
[2019-03-10] MEDS: CRANBERRY 500 MG PO SCH (08:52)
[2019-03-10] MEDS: Simethicone 80 MG Tab.Chew PO PRN ×2 (08:52→15:06)
[2019-03-10] MEDS: Tolterodine 4 MG Cap.ER PO SCH (08:53)
[2019-03-10] MEDS: Fluticasone Propionate Nasal Spray 16 GM Bottle NASBOTH SCH (08:53)
[2019-03-10] MEDS: Diazepam 5 MG Tab PO SCH (08:53)
[2019-03-10] MEDS: Acetaminophen 650 MG Tab.ER PO SCH (08:54)
[2019-03-10] MEDS: Ascorbic Acid 500 MG Tab PO SCH (08:55)
[2019-03-10] MEDS: Cholecalciferol (Vitamin D3) 1,000 Unit Tab PO SCH (08:55)
--- NOTE | 2019-03-10 08:55 | PCM.DCSUM1 ---
Discharge Summary - Hospital Course Free Text/Narrative:: Hospital course-patient had IV antibiotics with Zosyn. He did quite well although he had a chest x-ray that showed some air bubbles. The hospitalist at the time talk to ID and said not to do anything that Zosyn would work. Patient continued a better. Saw ID and felt to go home today after his IV antibiotics. He'll go home on Augmentin 875 twice a day for 1 month. He'll see ID in one month with a chest CT before the appointment. Brief History: This is a 54-year-old male patient who is a quadriplegic. He was hypoxia pneumonia and up. The hospital and transferred to [place]. Had empyema with his pneumonia and chest tube. Was pulled and he was sent here for swing bed on IV antibiotics. Diagnosis: Stroke: No - Discharge Data Discharge Date: 03/10/19 Discharge Disposition: Home, Self-Care 01 Condition: Good - Discharge Diagnosis/Problem(s) (1) Constipation SNOMED Code(s): 17953222 ICD Code: K59.00 - CONSTIPATION, UNSPECIFIED Status: Acute Current Visit : Yes Qualifiers: Constipation type: drug induced constipation Qualified Code(s): K59.03 - Drug induced constipation (2) Paraplegia, incomplete SNOMED Code(s): 858767691620467 ICD Code: G82.22 - PARAPLEGIA, INCOMPLETE Status: Acute Current Visit: Yes (3) Parapneumonic effusion SNOMED Code(s): 02839379 ICD Code: J18.9 - PNEUMONIA, UNSPECIFIED ORGANISM; J91.8 - PLEURAL EFFUSION IN OTHER CONDITIONS CLASSIFIED ELSEWHERE Status: Acute Current Visit: Yes (4) Pneumonia SNOMED Code(s): 896033764 ICD Code: J18.9 - PNEUMONIA, UNSPECIFIED ORGANISM Status: Acute Current Visit: No Qualifiers: Pneumonia type: due to unspecified organism - Patient Summary/Data Consults: Consultations 02/18/19 16:34 Consult to Case Management/Weigh Box Tender [CONS] Routine Comment: Physician Instructions: Service(s) to be Consulted: Case Management Consult to Oxygen Plant Operator [CONS] Routine Comment: Physician Instructions: Quantity: 02/21/19 18:13 Consult to Physical Therapy [PT Evaluation and Treatment] [CONS] Routine Please Evaluate and Treat. PT Reason for Consult: paraplegia stiffness This query below is only for informational purposes and is not editable. Admission Diagnosis/Problem: Pneumonia 02/21/19 18:14 Consult to Occupational Therapy [OT Evaluation and Treatment] [CONS] Routine Please Evaluate and Treat. OT Reason for Consult: quadraplegia This query below is only for informational purposes and is not editable. Admission Diagnosis/Problem: Pneumonia 02/25/19 09:09 Consult to Physician [CONS] Routine Consulting Provider: Tae Baxter Call Completed to Consulting Physician: Yes: eight am call to his cell phone Reason for Consult: gu work up retained barium from [place] ct abd testing Person Notified: mazin Date Notified: 02/25/19 Time Notified: 08:00 - Patient Instructions Diet: Regular Diet as Tolerated Activity: As Tolerated Driving: Do Not Drive Showering/Bathing: May Shower Notify Provider of: Fever, Increased Pain Other/Special Instructions: 1. Check with Dr. Sargent or Dr. Villeda in [address] scan of the chest here at [place]. And have it placed on PACS. That should be one month a few days before his ID appointment. 3. Infectious disease appointment 1 month. 4. Home health due to med management, home safety , patient compliance. - Discharge Plan Prescriptions/Med Rec: Amoxicillin/Clavulanate K [Augmentin 875-125 MG] 1 tab PO BID #60 tablet Home Medications: Home Meds Docusate Sodium [Colace] 100 mg PO BID 07/10/18 [History] Tolterodine [Detrol LA 24 Hr] 4 mg PO DAILY 07/10/18 [History] Ascorbate Calcium [Vitamin C] 500 mg PO DAILY 02/05/19 [History] Azelastine/Fluticasone [Dymista Nasal [place]] 1 spray NASBOTH BID 02/05/19 [ History] Cetirizine [ZyrTEC] 10 mg PO DAILY PRN 02/05/19 [History] Cholecalciferol (Vitamin D3) [Vitamin D3] 2,000 unit PO DAILY 02/05/19 [History] Melatonin 10 mg PO BEDTIME PRN 02/05/19 [History] Acetaminophen [Tylenol] 650 mg PO Q6H PRN 02/18/19 [History] Baclofen 10 - 40 mg PO Q6H PRN 02/18/19 [History] Baclofen Pump 1 ea ITHECAL ASDIRECTED 02/18/19 [History] Cranberry 400 mg PO DAILY 02/18/19 [History] Diazepam [Valium] 2.5 - 5 mg PO Q4H PRN 02/18/19 [History] Diazepam [Valium] 5 mg PO DAILY 02/18/19 [History] Hydrocortisone/Pramoxine [Proctofoam-Hc 1%-1% Foam] 1 applic RC TID PRN [History] Simethicone 80 mg PO QID PRN 02/18/19 [History] Sodium Chloride 0.9% [Saline Flush] 10 ml FLUSH Q8H 02/18/19 [History] Sodium Chloride 0.9% [Saline Flush] 10 ml FLUSH Q8H 02/18/19 [History] Amoxicillin/Clavulanate K [Augmentin 875-125 MG] 1 tab PO BID #60 tablet [Rx] Bisacodyl [Dulcolax] 10 mg PO SuTuTh@0900 tablet 03/10/19 [Rx] Bisacodyl [Dulcolax] 10 mg RECTAL MOWEFR supp 03/10/19 [Rx] Melatonin 10 mg PO BEDTIME PRN tablet 03/10/19 [Rx] Patient Handouts: PICC Home Care Guide, Venous Thromboembolism Prevention - Discharge Summary/Plan Comment DC Time >30 min.: No - Patient Data Vitals - Most Recent: Last Vital Signs Temp 98.2 F 03/09/19 08:15 Pulse 54 L 03/09/19 08:15 Resp 18 03/09/19 08:15 BP 132/78 03/09/19 08:15 Pulse Ox 94 L 03/09/19 08:15 Weight - Most Recent: 180 lb I&O - Last 24 hours: Intake & Output 03/09/19 03/10/19 03/10/19 22:59 06:59 14:59 Intake Total 1052 150 Output Total 4100 1425 Balance -2156 -0485 Med Orders - Current: Current Medications Acetaminophen (Tylenol Arthritis Pain) 1,300 mg PO BID EDEN Last Admin: 03/09/19 20:56 Dose: 1,300 mg Albuterol/Ipratropium (Duoneb 3.0-0.5 Mg/3 Ml) 3 ml NEB QID PRN PRN Reason: BRONCHOSPASM Ascorbic Acid (Vitamin C) 500 mg PO DAILY [facility] Last Admin: 03/09/19 08:55 Dose: 500 mg Baclofen (Lioresal) 20 mg PO TID PRN PRN Reason: WITHDRAWL SYMPTOMS Bisacodyl (Dulcolax) 10 mg RECTAL MOWEFR [facility] Last Admin: 03/05/19 08:10 Dose: 10 mg Bisacodyl (Dulcolax) 10 mg PO SuTuTh@0900 [facility] Last Admin: 03/09/19 08:54 Dose: Not Given Budesonide (Pulmicort) 0.25 mg INH BID [facility] Last Admin: 03/10/19 08:34 Dose: 0.25 mg Cetirizine HCl (Zyrtec) 10 mg PO DAILY PRN PRN Reason: Allergies Last Admin: 03/09/19 18:51 Dose: 10 mg Cholecalciferol (Vitamin D3) 2,000 units PO DAILY [facility] Last Admin: 03/09/19 08:53 Dose: 2,000 units Cranberry (Cranberry) 500 mg PO DAILY [facility] Last Admin: 03/09/19 08:53 Dose: 500 mg Diazepam (Valium.) 5 mg PO DAILY [facility] Last Admin: 03/09/19 09:00 Dose: 5 mg Diazepam (Valium.) 5 mg PO Q4H PRN PRN Reason: MUSCLE SPASM/PAIN Last Admin: 03/09/19 18:50 Dose: 5 mg Docusate Sodium (Colace) 100 mg PO BID@0800,1800 [facility] Last Admin: 03/10/19 08:33 Dose: 100 mg Fluticasone Propionate (Flonase) 0 gm NASBOTH BID [facility] Last Admin: 03/09/19 20:55 Dose: 1 spray Heparin Sodium (Porcine) (Heparin Lock Flush 100 Units/Ml) 300 units FLUSH Q8H [facility] Last Admin: 03/10/19 01:41 Dose: 300 units Hydrocortisone (Hydrocortisone 2.5% Crm) 0.5 gm TOP BID PRN PRN Reason: Itching Piperacillin Sod/Tazobactam (Sod 3.375 gm/ Sodium Chloride) 50 mls @ 100 mls/ hr IV Q8H [facility] Stop: 03/10/19 19:00 Last Admin: 03/10/19 00:56 Dose: 100 mls/hr Sodium Chloride (Normal Saline) 250 mls @ 100 mls/hr IV ASDIRECTED [facility] Last Admin: 02/26/19 01:22 Dose: 100 mls/hr Lubiprostone (Amitiza) 24 mcg PO BIDMEALS [facility] Last Admin: 03/10/19 08:33 Dose: 24 mcg Melatonin (Melatonin) 10 mg PO BEDTIME PRN PRN Reason: INSOMNIA Last Admin: 03/09/19 20:56 Dose: 10 mg (Baclofen Pump 1 Ea) (*Ptom) 1 ea ITHECAL ASDIRECTED [facility] Phenyleph/Shark Oil/Min Oil/Petrol (Preparation H Oint) 0 gm RECTAL MoWeFr [facility] Last Admin: 03/08/19 08:04 Dose: 1 applic Polyethylene Glycol (Miralax) 17 gm PO BEDTIME PRN PRN Reason: Constipation Last Admin: 02/23/19 08:55 Dose: 17 gm Simethicone (Simethicone) 80 mg PO QID PRN PRN Reason: FLATULENCE Last Admin: 03/09/19 17:43 Dose: 80 mg Sodium Chloride (Saline Flush) 10 ml FLUSH Q8H [facility] Last Admin: 03/10/19 00:55 Dose: 10 ml Sodium Chloride (Saline Flush) 10 ml FLUSH Q8H [facility] Last Admin: 03/10/19 01:40 Dose: 10 ml Tolterodine Tartrate (Detrol La 24 Hr) 4 mg PO DAILY [facility] Last Admin: 03/09/19 08:53 Dose: 4 mg Discontinued Medications Acetaminophen (Tylenol) 650 mg PO Q4H PRN PRN Reason: Pain Last Admin: 02/21/19 14:30 Dose: 650 mg Bisacodyl (Dulcolax) 10 mg PO Q48H [facility] Last Admin: 02/19/19 08:55 Dose: 10 mg Bisacodyl (Dulcolax) 10 mg RECTAL ONETIME ONE Stop: 02/20/19 09:01 Last Admin: 02/20/19 08:05 Dose: 10 mg Bisacodyl (Dulcolax) 10 mg PO SuTuTh [facility] Bisacodyl (Dulcolax) 20 mg PO SuTuTh@0900 [facility] Last Admin: 02/21/19 09:49 Dose: Not Given Bisacodyl (Dulcolax) 10 mg RECTAL [place] ONE Stop: 03/07/19 09:01 Last Admin: 03/07/19 09:26 Dose: Not Given Bisacodyl (Dulcolax) 10 mg PO Sa ONE Stop: 03/06/19 09:01 Last Admin: 03/06/19 08:50 Dose: 10 mg Bisacodyl (Dulcolax) 10 mg RECTAL ONETIME ONE Stop: 03/09/19 08:16 Last Admin: 03/09/19 08:19 Dose: 10 mg Docusate Sodium (Colace) 100 mg PO BID [facility] Docusate Sodium (Colace) 100 mg PO ONETIME ONE Stop: 02/25/19 19:05 Last Admin: 02/25/19 19:23 Dose: 100 mg Sodium Chloride (Normal Saline) 250 mls @ 0 mls/hr IV ASDIRECTED [facility] Stop: 02/26/19 00:35 Mineral Oil (Mineral Oil) 15 ml PO DAILY [facility] Last Admin: 03/04/19 10:46 Dose: Not Given Phenyleph/Shark Oil/Min Oil/Petrol (Preparation H Oint) 0 gm RECTAL 02/20/19 ONE Stop: 02/20/19 09:01 Last Admin: 02/20/19 10:37 Dose: 1 applic Prednisone (Prednisone) 40 mg PO DAILY [facility] Prednisone (Prednisone) 20 mg PO DAILY [facility] Stop: 02/21/19 23:59 Last Admin: 02/21/19 08:42 Dose: 20 mg
[2019-03-10] MEDS: Mineral Oil/Petrolatum/Phenylephrine/Shark Liver Oil Oint 57 GM Tube RECTAL SCH (09:26)
[2019-03-10 11:42] VITALS: BP 139/83
[2019-03-10] MEDS: Diazepam 5 MG Tab PO PRN (15:06)
== END 2019-03-10 17:25 | disposition home or self-care (01) | DRG 193 ==
LOC: FB.MS 02-18 15:55
PROVIDERS: ADMIT Family Medicine; ATTEND Family Medicine
DX: J18.9 Pneumonia, unspecified organism (principal); J86.9 Pyothorax without fistula; G82.54 Quadriplegia, C5-C7 incomplete; J91.8 Pleural effusion in other conditions classified elsewhere; G82.22 Paraplegia, incomplete; K80.10 Calculus of gallbladder with chronic cholecystitis without obstruction; Z51.5 Encounter for palliative care; Z66 Do not resuscitate; F17.210 Nicotine dependence, cigarettes, uncomplicated; Z79.2 Long term (current) use of antibiotics; S14.155S Other incomplete lesion at C5 level of cervical spinal cord, sequela; W16.42XS Fall into unspecified water causing other injury, sequela; N31.9 Neuromuscular dysfunction of bladder, unspecified; G47.33 Obstructive sleep apnea (adult) (pediatric); Z99.89 Dependence on other enabling machines and devices; Z87.440 Personal history of urinary (tract) infections; F32.9 Major depressive disorder, single episode, unspecified; M62.838 Other muscle spasm; F41.9 Anxiety disorder, unspecified; Z98.1 Arthrodesis status; J30.9 Allergic rhinitis, unspecified; Z88.5 Allergy status to narcotic agent; Z91.010 Allergy to peanuts; Z88.2 Allergy status to sulfonamides; Z93.50 Unspecified cystostomy status; K59.03 Drug induced constipation
CPT/HCPCS: 36415; 51702; 71046; 71250; 74018; 80048; 82565; 84460; 85025; 85651; 86140; 94150; 94640; A9270-GY; J1642; J2543; J7050

== ENCOUNTER 2019-06-21 15:21 | Inpatient (IN) | payer MEDICARE, MEDICAID ==
[2019-06-21] MEDS ORDERED: Cetirizine 10 MG Tab PO PRN (17:38)
[2019-06-21] MEDS ORDERED: Baclofen 10 MG Tab PO PRN (17:38)
[2019-06-21] MEDS ORDERED: Non-Formulary Medication 1 Each (Melatonin [Melatonin] 10 MG) PO PRN (17:38)
[2019-06-21] MEDS ORDERED: Bisacodyl 10 MG Supp RECTAL SCH (17:45)
[2019-06-21] MEDS ORDERED: BACLOFEN PUMP ITHECAL SCH (17:45)
[2019-06-21] MEDS ORDERED: Bisacodyl 10 MG Supp *PTOM RECTAL PRN (18:37)
[2019-06-21] MEDS ORDERED: Bisacodyl 5 MG Tab PO PRN (18:38)
[2019-06-21] MEDS: Docusate Sodium 100 MG Cap PO SCH (20:47)
[2019-06-21] MEDS: Diazepam 5 MG Tab PO SCH (20:47)
[2019-06-21] MEDS: Melatonin 3 MG Tab PO SCH (20:47)
[2019-06-21] MEDS: Albuterol 0.083% 2.5 MG/3 ML Neb Soln NEB SCH (20:47)
[2019-06-21] MEDS ORDERED: Amoxicillin/Clavulanate K 875-125 MG Tab PO SCH (21:00)
[2019-06-21] MEDS: Sodium Chloride 0.9% 10 ML Syringe FLUSH PRN ×3 (21:03→22:54)
[2019-06-22] MEDS: Sodium Chloride 0.9% 10 ML Syringe FLUSH PRN ×6 (05:33→21:01)
[2019-06-22] MEDS: Albuterol 0.083% 2.5 MG/3 ML Neb Soln NEB SCH ×2 (06:38→20:19)
[2019-06-22] MEDS ORDERED: HEMORRHOIDAL TOP PRN (08:45)
[2019-06-22] MEDS ORDERED: Bisacodyl 5 MG Tab PO SCH (09:00)
[2019-06-22] MEDS ORDERED: Diazepam 5 MG Tab PO SCH (09:00)
[2019-06-22] MEDS: Piperacillin/Tazobactam 4.5 GM in Sodium Chloride 0.9% 100 ML IV SCH ×3 (09:08→20:23)
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
[2019-06-22] MEDS: FLUoxetine 10 MG Cap PO SCH (09:24)
[2019-06-22] MEDS: Tolterodine 4 MG Cap.ER PO SCH (09:24)
[2019-06-22] MEDS: Docusate Sodium 100 MG Cap PO SCH ×2 (09:24→20:33)
[2019-06-22] MEDS: Diazepam 5 MG Tab PO SCH ×2 (09:24→20:33)
[2019-06-22] MEDS: Cranberry 500 MG Cap PO SCH (09:24)
[2019-06-22] MEDS: Cetirizine 10 MG Tab PO SCH (09:26)
[2019-06-22] MEDS ORDERED: Iopamidol 755 Mg/ML 100 ML Bottle IV ONE ×2 (10:00→10:01)
[2019-06-22] MEDS ORDERED: Diatrizoate Meglumine/Diatrizoate Sodium 37% 30 ML Bottle PO ONE (10:01)
[2019-06-22] MEDS: Diazepam 5 MG Tab PO PRN (13:30)
[2019-06-22] MEDS: Acetaminophen 325 MG Tab PO PRN ×2 (13:33→20:10)
--- NOTE | 2019-06-22 13:54 | PN ---
DATE SEEN: 06/22/2019 SUBJECTIVE: Samson is a 54-year-old admitted yesterday for resistant Pseudomonas urinary tract infection. He has an indwelling suprapubic catheter in place due to his previous spinal cord injury and quadriplegia but had been having increasing symptoms of bladder discomfort, more leg spasms, and low-grade chills over the past couple of weeks. He is feeling stable and denies significant pain. He did not sleep well, even using his own CPAP machine at home. OBJECTIVE: GENERAL: He is awake and comfortable. Weight 195 pounds. LUNGS: Clear. HEART: Regular. ABDOMEN: Soft. Suprapubic catheter site appears clean. He has a 22-[place] catheter in place hooked up to drainage bag. LABORATORY DATA: White count 5,500, hemoglobin 12.7, BUN 12, creatinine 0.5. CRP 2.9. ASSESSMENT: Resistant Pseudomonas urinary tract infection. PLAN: Phone consultation held with Dr. Loaiza from Infectious Disease in [place], who has been treating him for his empyema/pneumonia. I will change his antibiotic. I will add Zosyn IV to his antibiotic and overlap today with the gentamicin, discontinuing the gentamicin after today's doses. We will change his suprapubic catheter. Also, planned are CTs of the chest, abdomen, and pelvis. /[id number] GLORIA/SMOOTH
[2019-06-22] MEDS ORDERED: Lidocaine 2% HCl 6 ML JEL.PF.APP STA (14:00)
[2019-06-22] MEDS: Lidocaine 2% HCl 6 ML JEL.PF.APP STA ×2 (14:22→15:00)
--- NOTE | 2019-06-22 15:00 | PROC ---
DATE OF PROCEDURE: 06/22/2019 PROCEDURE: Catheter change. HISTORY: Wei is a 54-year-old, in with Pseudomonas urinary tract infection. He has a suprapubic catheter in place. He was started on IV antibiotics yesterday and now recommended his catheter be changed. DESCRIPTION OF PROCEDURE: After obtaining the patient's consent, the area of the old catheter was cleansed with Betadine swabs. The new 22-[place] silicone catheter was attached to the new tubing, new bag, and integrity of the balloon was tested with 5 mL of water. The old catheter was removed and the new catheter replaced with immediate return of urine, 5 mL of water was placed in the balloon, and the catheter was secured. The patient tolerated the procedure well without complications. /[id number] GLORIA/SMOOTH
[2019-06-22] MEDS: Simethicone 80 MG Tab.Chew PO PRN (20:09)
[2019-06-22] MEDS: Melatonin 3 MG Tab PO SCH (20:33)
[2019-06-23] MEDS: Piperacillin/Tazobactam 4.5 GM in Sodium Chloride 0.9% 100 ML IV SCH ×4 (01:55→20:13)
[2019-06-23] MEDS: Sodium Chloride 0.9% 10 ML Syringe FLUSH PRN ×6 (01:56→20:42)
[2019-06-23] MEDS: Albuterol 0.083% 2.5 MG/3 ML Neb Soln NEB SCH ×2 (08:29→20:25)
[2019-06-23] MEDS ORDERED: Bisacodyl 5 MG Tab PO SCH (09:00)
[2019-06-23] MEDS: Docusate Sodium 100 MG Cap PO SCH ×2 (09:44→20:25)
[2019-06-23] MEDS: Cranberry 500 MG Cap PO SCH (09:44)
[2019-06-23] MEDS: Tolterodine 4 MG Cap.ER PO SCH (09:45)
[2019-06-23] MEDS: FLUoxetine 10 MG Cap PO SCH (09:47)
[2019-06-23] MEDS: Acetaminophen 325 MG Tab PO PRN ×2 (09:53→20:36)
[2019-06-23] MEDS: Cetirizine 10 MG Tab PO SCH (09:55)
[2019-06-23] MEDS: Diazepam 5 MG Tab PO SCH ×2 (09:55→20:26)
[2019-06-23] MEDS: Diazepam 5 MG Tab PO PRN (14:43)
[2019-06-23] MEDS: Simethicone 80 MG Tab.Chew PO PRN ×2 (14:43→20:44)
[2019-06-23] MEDS: Melatonin 3 MG Tab PO SCH (20:25)
[2019-06-24] MEDS: Sodium Chloride 0.9% 10 ML Syringe FLUSH PRN ×8 (02:24→20:46)
[2019-06-24] MEDS: Piperacillin/Tazobactam 4.5 GM in Sodium Chloride 0.9% 100 ML IV SCH ×4 (02:25→20:17)
[2019-06-24] MEDS ORDERED: Bisacodyl 10 MG Supp *PTOM RECTAL SCH (09:00)
[2019-06-24] MEDS: Docusate Sodium 100 MG Cap PO SCH ×2 (10:48→20:41)
[2019-06-24] MEDS: Cranberry 500 MG Cap PO SCH (10:48)
[2019-06-24] MEDS: Tolterodine 4 MG Cap.ER PO SCH (10:49)
[2019-06-24] MEDS: FLUoxetine 10 MG Cap PO SCH (10:49)
[2019-06-24] MEDS: Diazepam 5 MG Tab PO SCH ×2 (10:51→20:42)
[2019-06-24] MEDS: Cetirizine 10 MG Tab PO SCH (10:51)
[2019-06-24] MEDS: Acetaminophen 325 MG Tab PO PRN ×2 (10:52→17:19)
[2019-06-24] MEDS: Albuterol 0.083% 2.5 MG/3 ML Neb Soln NEB SCH ×2 (10:54→20:20)
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
[2019-06-24] MEDS: Diazepam 5 MG Tab PO PRN (17:20)
[2019-06-24] MEDS: Melatonin 3 MG Tab PO SCH (20:41)
[2019-06-24] MEDS: Simethicone 80 MG Tab.Chew PO PRN (20:42)
[2019-06-25] MEDS: Sodium Chloride 0.9% 10 ML Syringe FLUSH PRN ×3 (02:31→21:48)
[2019-06-25] MEDS: Piperacillin/Tazobactam 4.5 GM in Sodium Chloride 0.9% 100 ML IV SCH ×4 (02:31→21:48)
[2019-06-25] MEDS: Albuterol 0.083% 2.5 MG/3 ML Neb Soln NEB SCH ×2 (08:18→20:39)
--- NOTE | 2019-06-25 08:51 | PCM.PN ---
- General Info Date of Service: 06/25/19 Subjective Update: No complaints this morning. - Review of Systems General: Reports: No Symptoms HEENT: Reports: No Symptoms Pulmonary: Reports: No Symptoms Cardiovascular: Reports: No Symptoms Gastrointestinal: Reports: No Symptoms - Patient Data Vitals - Most Recent: Last Vital Signs Temp 97.6 F 06/24/19 23:55 Pulse 51 L 06/24/19 23:55 Resp 17 06/24/19 23:55 BP 124/72 06/24/19 23:55 Pulse Ox 94 L 06/24/19 23:55 Weight - Most Recent: 93.44 kg I&O - Last 24 Hours: Intake & Output 06/24/19 06/25/19 06/25/19 22:59 06:59 14:59 Intake Total 550 350 Output Total 2427 1750 Balance -1875 -1400 Lab Results Last 24 Hours: Laboratory Results - last 24 hr 06/24/19 Range/Units 15:10 Urine Color Yellow (YELLOW) Urine Appearance Clear (CLEAR) Urine pH 8.0 H (5.0-6.5) Ur Specific [place] 1.010 (1.010-1.025) Urine Protein Negative (NEGATIVE) mg/dL Urine Glucose (UA) Normal (NORMAL) mg/dL Urine Ketones Negative (NEGATIVE) mg/dL Urine Occult Blood Moderate H (NEGATIVE) Urine Nitrite Negative (NEGATIVE) Urine Bilirubin Negative (NEGATIVE) Urine Urobilinogen Normal (NEGATIVE) mg/dL Ur Leukocyte Esterase Negative (NEGATIVE) Urine RBC 0-5 (0-5) Urine WBC 0-5 (0-5) Ur Squamous Epith Cells Few H (NS,R,O) Urine Bacteria Few H (NS) Med Orders - Current: Current Medications Acetaminophen (Tylenol) 650 mg PO Q6H PRN PRN Reason: MILD PAIN Last Admin: 06/24/19 17:19 Dose: 650 mg Albuterol (Proventil Neb Soln) 2.5 mg NEB BIDRT [facility] Last Admin: 06/25/19 08:18 Dose: 2.5 mg Bisacodyl (Dulcolax) 10 mg RECTAL DAILY PRN PRN Reason: Constipation Bisacodyl (Dulcolax) 15 mg PO DAILY PRN PRN Reason: Constipation Bisacodyl (Dulcolax) 10 mg RECTAL MoTh@0900 [facility] Last Admin: 06/24/19 11:18 Dose: 10 mg Bisacodyl (Dulcolax) 15 mg PO SuWe@0900 [facility] Last Admin: 06/23/19 09:47 Dose: 15 mg Cetirizine HCl (Zyrtec) 10 mg PO DAILY [facility] Last Admin: 06/24/19 10:51 Dose: 10 mg Cranberry (Cranberry) 500 mg PO DAILY [facility] Last Admin: 06/24/19 10:48 Dose: Not Given Diazepam (Valium.) 5 mg PO BID PRN PRN Reason: MUSCLE SPASM/PAIN Last Admin: 06/24/19 17:20 Dose: 5 mg Diazepam (Valium.) 5 mg PO BID [facility] Last Admin: 06/24/19 20:42 Dose: 5 mg Docusate Sodium (Colace) 100 mg PO BID [facility] Last Admin: 06/24/19 20:41 Dose: 100 mg Fluoxetine HCl (Prozac) 10 mg PO DAILY [facility] Last Admin: 06/24/19 10:49 Dose: 10 mg Piperacillin Sod/Tazobactam (Sod 4.5 gm/ Sodium Chloride) 100 mls @ 200 mls/hr IV Q6H [facility] Last Admin: 06/25/19 08:19 Dose: 200 mls/hr Melatonin (Melatonin) 9 mg PO BEDTIME [facility] Last Admin: 06/24/19 20:41 Dose: 9 mg Non-Formulary Medication (Baclofen Pump) 1 ea ITHECAL ASDIRECTED [facility] Hemorrhoidal Cream * (Ptom) 1 applic TOP TID PRN PRN Reason: ITCHING Simethicone (Simethicone) 80 mg PO QID PRN PRN Reason: FLATULENCE Last Admin: 06/24/19 20:42 Dose: 80 mg Sodium Chloride (Saline Flush) 10 ml FLUSH ASDIRECTED PRN PRN Reason: Keep Vein Open Last Admin: 06/25/19 02:31 Dose: 10 ml Tolterodine Tartrate (Detrol La 24 Hr) 4 mg PO DAILY [facility] Last Admin: 06/24/19 10:49 Dose: 4 mg Discontinued Medications Amoxicillin/Clavulanate Potassium (Augmentin 875 Mg/125 Mg) 1 tab PO Q12H [facility] Last Admin: 06/21/19 20:47 Dose: 1 tab Bisacodyl (Dulcolax) 10 mg RECTAL MOWEFR [facility] Bisacodyl (Dulcolax) 10 mg PO SuTuTh@0900 [facility] Cetirizine HCl (Zyrtec) 10 mg PO DAILY PRN PRN Reason: Allergies Diatrizoate Meglum/Diatrizoate Sod (Gastrografin 37%) 30 ml PO . DIRECTED ONE Stop: 06/22/19 10:02 Last Admin: 06/22/19 10:26 Dose: 30 ml Diazepam (Valium.) 5 mg PO DAILY [facility] Gentamicin Sulfate 100 mg/ (Sodium Chloride) 102.5 mls @ 200 mls/hr IV Q8H [place] Stop: 06/22/19 23:55 Last Admin: 06/22/19 21:19 Dose: 200 mls/hr Iopamidol (Isovue-370 (76%)) 100 ml IV ONETIME ONE Stop: 06/22/19 10:01 Last Admin: 06/22/19 10:24 Dose: 93 ml Iopamidol (Isovue-370 (76%)) 100 ml IV . DIRECTED ONE Stop: 06/22/19 10:02 Lidocaine HCl (Glydo) 10 ml .XX ONETIME STA Stop: 06/22/19 13:54 Last Admin: 06/22/19 15:00 Dose: Not Given Lidocaine HCl (Glydo) 6 ml .XX ONETIME STA Stop: 06/22/19 14:01 Last Admin: 06/22/19 14:00 Dose: 6 ml Non-Formulary Medication (Melatonin [Melatonin]) 10 mg PO BEDTIME PRN PRN Reason: Insomnia - Exam General: Alert, Oriented, Cooperative HEENT: Pupils Equal Lungs: Clear to Auscultation, Decreased Breath Sounds Cardiovascular: Regular Rate GI/Abdominal Exam: Normal Bowel Sounds Psy/Mental Status: Alert, Normal Affect - Problem List & Annotations (1) UTI (urinary tract infection) SNOMED Code(s): 80940118 Code(s): N39.0 - URINARY TRACT INFECTION, SITE NOT SPECIFIED Status: Chronic Current Visit: No Qualifiers: Urinary tract infection type: catheter-associated UTI Encounter type: subsequent encounter (2) Parapneumonic effusion SNOMED Code(s): 21079109 Code(s): J18.9 - PNEUMONIA, UNSPECIFIED ORGANISM; J91.8 - PLEURAL EFFUSION IN OTHER CONDITIONS CLASSIFIED ELSEWHERE Status: Chronic Current Visit: No (3) Quadriplegic spinal paralysis SNOMED Code(s): 987865528 Code(s): G82.50 - QUADRIPLEGIA, UNSPECIFIED Status: Chronic Current Visit : No (4) Depression SNOMED Code(s): 56204448 Code(s): F32.9 - MAJOR DEPRESSIVE DISORDER, SINGLE EPISODE, UNSPECIFIED Status: Acute Current Visit: Yes Qualifiers: Depression Type: major depressive disorder Active/Remission status: currently active Psychotic features: without psychotic features - Problem List Review Problem List Initiated/Reviewed/Updated: Yes - Plan Plan:: IV antibiotics until tomorrow.DC home then
[2019-06-25] MEDS: Cranberry 500 MG Cap PO SCH (08:59)
[2019-06-25] MEDS: Docusate Sodium 100 MG Cap PO SCH ×2 (09:01→20:38)
[2019-06-25] MEDS: Tolterodine 4 MG Cap.ER PO SCH (09:01)
[2019-06-25] MEDS: Diazepam 5 MG Tab PO SCH ×2 (09:01→20:38)
[2019-06-25] MEDS: Cetirizine 10 MG Tab PO SCH (09:01)
[2019-06-25] MEDS: FLUoxetine 10 MG Cap PO SCH (09:01)
[2019-06-25] MEDS: Acetaminophen 325 MG Tab PO PRN ×2 (13:28→19:38)
[2019-06-25] MEDS: Diazepam 5 MG Tab PO PRN (15:33)
[2019-06-25] MEDS: Simethicone 80 MG Tab.Chew PO PRN (18:51)
[2019-06-25] MEDS: Melatonin 3 MG Tab PO SCH (20:38)
[2019-06-26] MEDS: Piperacillin/Tazobactam 4.5 GM in Sodium Chloride 0.9% 100 ML IV SCH ×2 (02:08→08:24)
[2019-06-26] MEDS: Sodium Chloride 0.9% 10 ML Syringe FLUSH PRN ×2 (02:09→08:27)
[2019-06-26] MEDS: Docusate Sodium 100 MG Cap PO SCH (08:25)
[2019-06-26] MEDS: Tolterodine 4 MG Cap.ER PO SCH (08:25)
[2019-06-26] MEDS: Albuterol 0.083% 2.5 MG/3 ML Neb Soln NEB SCH (08:25)
[2019-06-26] MEDS: FLUoxetine 10 MG Cap PO SCH (08:25)
[2019-06-26] MEDS: Diazepam 5 MG Tab PO SCH (08:25)
[2019-06-26] MEDS: Cetirizine 10 MG Tab PO SCH (08:25)
[2019-06-26] MEDS: Cranberry 500 MG Cap PO SCH (08:26)
--- NOTE | 2019-06-26 10:00 | PCM.PN ---
- General Info Date of Service: 06/26/19 Subjective Update: No complaints this morning. Functional Status: Reports: Pain Controlled - Review of Systems General: Reports: No Symptoms HEENT: Reports: No Symptoms Pulmonary: Reports: No Symptoms Cardiovascular: Reports: No Symptoms - Patient Data Vitals - Most Recent: Last Vital Signs Temp 97.5 F 06/26/19 08:00 Pulse 53 L 06/26/19 08:00 Resp 18 06/26/19 08:00 BP 138/78 06/26/19 08:00 Pulse Ox 93 L 06/26/19 08:00 Weight - Most Recent: 93.44 kg I&O - Last 24 Hours: Intake & Output 06/25/19 06/26/19 06/26/19 22:59 06:59 14:59 Intake Total 1800 Output Total 1000 3250 Balance 800 -3250 Med Orders - Current: Current Medications Acetaminophen (Tylenol) 650 mg PO Q6H PRN PRN Reason: MILD PAIN Last Admin: 06/25/19 19:38 Dose: 650 mg Albuterol (Proventil Neb Soln) 2.5 mg NEB BIDRT [facility] Last Admin: 06/26/19 08:25 Dose: 2.5 mg Bisacodyl (Dulcolax) 10 mg RECTAL DAILY PRN PRN Reason: Constipation Bisacodyl (Dulcolax) 15 mg PO DAILY PRN PRN Reason: Constipation Bisacodyl (Dulcolax) 10 mg RECTAL MoTh@0900 [facility] Last Admin: 06/24/19 11:18 Dose: 10 mg Bisacodyl (Dulcolax) 15 mg PO SuWe@0900 [facility] Last Admin: 06/23/19 09:47 Dose: 15 mg Cetirizine HCl (Zyrtec) 10 mg PO DAILY [facility] Last Admin: 06/26/19 08:25 Dose: 10 mg Cranberry (Cranberry) 500 mg PO DAILY [facility] Last Admin: 06/26/19 08:26 Dose: Not Given Diazepam (Valium.) 5 mg PO BID PRN PRN Reason: MUSCLE SPASM/PAIN Last Admin: 06/25/19 15:33 Dose: 5 mg Diazepam (Valium.) 5 mg PO BID [facility] Last Admin: 06/26/19 08:25 Dose: 5 mg Docusate Sodium (Colace) 100 mg PO BID [facility] Last Admin: 06/26/19 08:25 Dose: 100 mg Fluoxetine HCl (Prozac) 10 mg PO DAILY [facility] Last Admin: 06/26/19 08:25 Dose: 10 mg Piperacillin Sod/Tazobactam (Sod 4.5 gm/ Sodium Chloride) 100 mls @ 200 mls/hr IV Q6H [facility] Stop: 06/26/19 11:00 Last Admin: 06/26/19 08:24 Dose: 200 mls/hr Melatonin (Melatonin) 9 mg PO BEDTIME [facility] Last Admin: 06/25/19 20:38 Dose: 9 mg Non-Formulary Medication (Baclofen Pump) 1 ea ITHECAL ASDIRECTED [facility] Hemorrhoidal Cream * (Ptom) 1 applic TOP TID PRN PRN Reason: ITCHING Simethicone (Simethicone) 80 mg PO QID PRN PRN Reason: FLATULENCE Last Admin: 06/25/19 18:51 Dose: 80 mg Sodium Chloride (Saline Flush) 10 ml FLUSH ASDIRECTED PRN PRN Reason: Keep Vein Open Last Admin: 06/26/19 08:27 Dose: 10 ml Tolterodine Tartrate (Detrol La 24 Hr) 4 mg PO DAILY [facility] Last Admin: 06/26/19 08:25 Dose: 4 mg Discontinued Medications Amoxicillin/Clavulanate Potassium (Augmentin 875 Mg/125 Mg) 1 tab PO Q12H [facility] Last Admin: 06/21/19 20:47 Dose: 1 tab Bisacodyl (Dulcolax) 10 mg RECTAL MOWEFR [facility] Bisacodyl (Dulcolax) 10 mg PO SuTuTh@0900 [facility] Cetirizine HCl (Zyrtec) 10 mg PO DAILY PRN PRN Reason: Allergies Diatrizoate Meglum/Diatrizoate Sod (Gastrografin 37%) 30 ml PO . DIRECTED ONE Stop: 06/22/19 10:02 Last Admin: 06/22/19 10:26 Dose: 30 ml Diazepam (Valium.) 5 mg PO DAILY [facility] Gentamicin Sulfate 100 mg/ (Sodium Chloride) 102.5 mls @ 200 mls/hr IV Q8H [facility] Stop: 06/22/19 23:55 Last Admin: 06/22/19 21:19 Dose: 200 mls/hr Iopamidol (Isovue-370 (76%)) 100 ml IV ONETIME ONE Stop: 06/22/19 10:01 Last Admin: 06/22/19 10:24 Dose: 93 ml Iopamidol (Isovue-370 (76%)) 100 ml IV . DIRECTED ONE Stop: 06/22/19 10:02 Lidocaine HCl (Glydo) 10 ml .XX ONETIME STA Stop: 06/22/19 13:54 Last Admin: 06/22/19 15:00 Dose: Not Given Lidocaine HCl (Glydo) 6 ml .XX ONETIME STA Stop: 06/22/19 14:01 Last Admin: 06/22/19 14:00 Dose: 6 ml Non-Formulary Medication (Melatonin [Melatonin]) 10 mg PO BEDTIME PRN PRN Reason: Insomnia - Exam General: Alert, Other Neck: Supple Lungs: Clear to Auscultation Cardiovascular: Regular Rate, No Murmurs - Problem List & Annotations (1) UTI (urinary tract infection) SNOMED Code(s): 78670363 Code(s): N39.0 - URINARY TRACT INFECTION, SITE NOT SPECIFIED Status: Chronic Current Visit: No Qualifiers: Urinary tract infection type: catheter-associated UTI Encounter type: subsequent encounter (2) Parapneumonic effusion SNOMED Code(s): 35850405 Code(s): J18.9 - PNEUMONIA, UNSPECIFIED ORGANISM; J91.8 - PLEURAL EFFUSION IN OTHER CONDITIONS CLASSIFIED ELSEWHERE Status: Chronic Current Visit: No (3) Quadriplegic spinal paralysis SNOMED Code(s): 186605430 Code(s): G82.50 - QUADRIPLEGIA, UNSPECIFIED Status: Chronic Current Visit : No (4) Depression SNOMED Code(s): 50922732 Code(s): F32.9 - MAJOR DEPRESSIVE DISORDER, SINGLE EPISODE, UNSPECIFIED Status: Acute Current Visit: Yes Qualifiers: Depression Type: major depressive disorder Active/Remission status: currently active Psychotic features: without psychotic features - Problem List Review Problem List Initiated/Reviewed/Updated: Yes - Plan Plan:: IV antibiotics done.May return home. Has oral Augmentin for suppression of CAP
--- NOTE | 2019-06-29 08:27 | DISCH ---
DISCHARGE DATE: 06/26/2019 REASON FOR ADMISSION: Urinary tract infection, Pseudomonas. DISCHARGE DIAGNOSES: 1. Urinary tract infection, Pseudomonas. 2. Depression. 3. Muscle spasms. 4. Incomplete quadriplegic. 5. History of pneumonia. BRIEF HISTORY: A 54-year-old male who was admitted from the clinic directly because of multidrug resistant Pseudomonas on the urine. He had presented with UTI symptoms, and a urine culture revealed Pseudomonas that was only sensitive to IV medications. He was started initially on IV gentamicin, and after consultation with Infectious Disease, he was placed on IV Zosyn, which he has completed a 7-day course today. He feels well enough to return home. While in the hospital, he had a CT scan of the chest that showed improvement of the parapneumonic effusion and empyema, and also had an echocardiogram that showed an ejection fraction of 60%. He will be discharged home on his current medications that also include Augmentin 875 mg p.o. b.i.d. that is taken for 3 months and will see his infectious disease specialist in July for further treatment. Please note that I spent more than 35 minutes in the discharge diagnosis. /[id number] SIENA/SMOOTH
== END 2019-06-26 11:45 | disposition home or self-care (01) | DRG 698 ==
LOC: FB.MS 17:13
PROVIDERS: ADMIT Family Medicine; ATTEND Family Medicine
PROC: 0T2BX0Z Change Drainage Device in Bladder, External Approach (ICD-10-PCS; principal; 2019-06-22)
DX: T83.511A Infection and inflammatory reaction due to indwelling urethral catheter, initial encounter (principal); R53.2 Functional quadriplegia; J18.1 Lobar pneumonia, unspecified organism; J91.8 Pleural effusion in other conditions classified elsewhere; N39.0 Urinary tract infection, site not specified; B96.5 Pseudomonas (aeruginosa) (mallei) (pseudomallei) as the cause of diseases classified elsewhere; F32.9 Major depressive disorder, single episode, unspecified; G47.33 Obstructive sleep apnea (adult) (pediatric); Z51.5 Encounter for palliative care; F41.9 Anxiety disorder, unspecified; M62.838 Other muscle spasm; Z79.899 Other long term (current) drug therapy; Z88.5 Allergy status to narcotic agent; Z88.2 Allergy status to sulfonamides; Z91.010 Allergy to peanuts; Z99.81 Dependence on supplemental oxygen; Y84.6 Urinary catheterization as the cause of abnormal reaction of the patient, or of later complication, without mention of misadventure at the time of the procedure
CPT/HCPCS: 36415; 71250; 74176; 80053; 81001; 85025; 85651; 86140; 93306; 94640; A9270-GY; J1580; J2543; J7030; Q9963; Q9967

== ENCOUNTER 2022-05-19 09:42 | Emergency (ER) | payer MEDICARE | END 2022-05-19 11:20 | disposition home or self-care (01) | LOC: FB.ED 09:42 | DX: T83.098A Other mechanical complication of other urinary catheter, initial encounter (principal); Z91.010 Allergy to peanuts; Z88.5 Allergy status to narcotic agent; Z88.2 Allergy status to sulfonamides | CPT/HCPCS: 51702; 99281; 99284 ==

== ENCOUNTER 2022-12-10 11:43 | Emergency (ER) | payer MEDICARE ==
[2022-12-10 13:17] LABS: ESTIMATED GFR 108 mL/min (>60)
== END 2022-12-10 13:53 | disposition home or self-care (01) ==
LOC: FB.ED 11:43
DX: J06.9 Acute upper respiratory infection, unspecified (principal); N39.0 Urinary tract infection, site not specified; Z88.5 Allergy status to narcotic agent; Z91.010 Allergy to peanuts; Z88.2 Allergy status to sulfonamides; Z20.822 Contact with and (suspected) exposure to COVID-19
CPT/HCPCS: 36415; 80053; 81001; 83605; 85025; 87040; 87086; 87088; 87186; 99283; U0002

== ENCOUNTER 2023-09-17 12:37 | Emergency (ER) | payer MEDICARE ==
[2023-09-17] MEDS ORDERED: Albuterol/Ipratropium 3.0-0.5 MG/3 ML Neb Soln NEB ONE (13:41)
[2023-09-17 13:48] LABS: BASOPHILS PERCENT AUTO 0.3 % (0.3-3.8); EOSINOPHILS PERCENT AUTO 0.3 % (0.1-6.8); HEMATOCRIT 44.1 % (38.3-50.1); LYMPHOCYTES ABSOLUTE AUTO 1.1 x10-3/uL (0.5-4.5); LYMPHOCYTES PERCENT AUTO 16.2 % (15.8-45.3); MEAN CORPUSCULAR HEMOGLOBIN 31.8 pg (27.0-33.3); MEAN CORPUSCULAR VOLUME 93.3 fL (80.8-98.7); MEAN PLATELET VOLUME 7.7 fL (6.7-11.0); MONOCYTES ABSOLUTE AUTO 0.2 x10-3/uL (0.0-1.2); MONOCYTES PERCENT AUTO 3.5 % (5.5-15.2); NEUTROPHILS ABSOLUTE AUTO 5.3 x10-3/uL (1.7-6.9); NEUTROPHILS PERCENT AUTO 79.7 % (40.3-71.8); PLATELET COUNT,PLT 215 x10(3)uL (117-477); RED BLOOD CELL COUNT 4.72 x10(6)uL (3.90-5.90); RED CELL DISTRIBUTION WIDTH 16.7 % (12.4-15.0); WHITE BLOOD CELL COUNT,WBC 6.6 x10-3/uL (3.2-10.1)
[2023-09-17 13:54] LABS: BLOOD UREA NITROGEN,BUN 11 mg/dL (7-18); BUN/CREATININE RATIO 15.7 (9-20); CALCIUM 9.5 mg/dL (8.6-10.2); CARBON DIOXIDE,CO2 37 mmol/L (21-32); CHLORIDE,CL 93 mmol/L (100-110); CREATININE 0.7 mg/dL (0.70-1.30); EST CRCL DRUG DOSING (CG) 135.37 mL/min; ESTIMATED GFR 107 mL/min (>60); GLUCOSE RANDOM 145 mg/dL (80-116); POTASSIUM,K 4.3 mmol/L (3.5-5.3); SODIUM,NA 133 mmol/L (135-145)
[2023-09-17 14:00] LABS: A/G RATIO 0.7; ALANINE AMINOTRANSFERASE,ALT 47 U/L (12-36); ALBUMIN 3.6 g/dL (3.5-5.2); ALKALINE PHOSPHATASE 116 IU/L (56-112); ASPARTATE AMNIOTRANSFERASE,AST 25 IU/L (5-25); BILIRUBIN TOTAL 0.5 mg/dL (0.1-1.3); MAGNESIUM 1.9 mg/dL (1.8-2.5); PROTEIN TOTAL,TP 8.5 g/dL (6.0-8.0)
[2023-09-17 14:33] LABS: BILIRUBIN,URINE NEGATIVE (NEGATIVE); GLUCOSE,URINE NORMAL (NORMAL); KETONES,URINE NEGATIVE (NEGATIVE); LEUKOCYTE ESTERASE,URINE NEGATIVE (NEGATIVE); NITRITE,URINE NEGATIVE (NEGATIVE); OCCULT BLOOD,URINE NEGATIVE (NEGATIVE); PROTEIN,URINE NEGATIVE (NEGATIVE); UROBILINOGEN,URINE NORMAL (NEGATIVE)
[2023-09-17 14:35] LABS: APPEARANCE,URINE CLEAR (CLEAR); BACTERIA,URINE RARE (NS); COLOR,URINE YELLOW (YELLOW); RBC,URINE NOT SEEN (0-5); SQUAMOUS EPITHELIAL CELLS,UR FEW (NS,R,O); WBC,URINE 0-5 (0-5)
== END 2023-09-17 16:00 | disposition home or self-care (01) ==
LOC: FB.ED 12:37
DX: J18.9 Pneumonia, unspecified organism (principal); J45.31 Mild persistent asthma with (acute) exacerbation; Z91.010 Allergy to peanuts; Z88.2 Allergy status to sulfonamides; Z88.5 Allergy status to narcotic agent; Z79.899 Other long term (current) drug therapy
CPT/HCPCS: 36415; 71046; 80053; 81001; 83735; 85025; 86140; 94640; 99285; J7620